=== PATIENT | male | born 1945 | race Caucasian/White ===

== ENCOUNTER → 2017-11-16 08:48 | Outpatient (CLI) | payer OTHER, SELFPAY ==
[2017-11-16 09:50] LABS: Add Manual Diff / Slide Review NO; Basophils Percent Auto 0.8 % (0-2); Eosinophils Percent Auto 6.1 % (2-4); Hematocrit 40.5 % (41-53); Hemoglobin 14.1 g/dL (13.5-17.5); Lymphocytes Percent Auto 27.1 % (25-40); Mean Corpuscular HGB Conc 34.7 % (30-36); Mean Corpuscular Volume 95.1 fL (80-100); Monocytes Percent Auto 12.3 % (3-14); Neutrophils Absolute Auto 2400 /uL (3000-5900); Neutrophils Percent Auto 53.7 % (50-75); Platelet Count 169 X10^3/uL (150-400); Red Blood Cell Count 4.26 X10^6/uL (4.5-5.9); Red Cell Distribution Width 13.3 % (11.6-14.8); White Blood Cell Count 4.5 X10^3/uL (4.5-11.0)
[2017-11-16 09:54] LABS: Alanine Aminotransferase 60 IU/L (21-72); Albumin Globulin Ratio 1.4 (1.0-2.8); Alkaline Phosphatase 61 U/L (38-126); Aspartate Aminotransferase 48 IU/L (17-59); BUN Creatinine Ratio 19.2 (6-22); Bilirubin Total 0.9 mg/dL (0.2-1.3); Blood Urea Nitrogen 25 mg/dL (9-20); Carbon Dioxide 28 mmol/L (22-32); Chloride 106 mmol/L (98-107); Cholesterol 110 mg/dL (140-199); Estimated Glomerular Filt Rate 54.4 mL/min (>60); Globulin 2.9 g/dL (1.7-4.1); Glucose 115 mg/dL (80-110); HDL Cholesterol 36 mg/dL (40-60); HEMOLYSIS < 15 (0-50); LDL Cholesterol Calculated 65 mg/dL (<100); Potassium 4.6 mmol/L (3.4-5.1); Sodium 144 mmol/L (137-145); Total Protein 6.9 g/dL (6.3-8.2); Triglycerides 46 mg/dL (35-150)
== END ==
PROVIDERS: PCP Family Medicine; Visit Provider Family Medicine
DX: N18.3 Chronic kidney disease, stage 3 (moderate) (principal); E78.00 Pure hypercholesterolemia, unspecified
CPT/HCPCS: 36415; 80053; 80061; 85025

== ENCOUNTER → 2017-11-29 13:26 | Outpatient (CLI) | payer OTHER, SELFPAY ==
--- NOTE | 2017-11-29 13:28 | DI.MRI.S_ITS ---
PROCEDURE: MR STROKE Pre- and post-contrast brain MRI, non-contrast brain MR angiogram, pre- and postcontrast neck MR angiogram INDICATIONS: SPEECH AND LANGUAGE DEFICITS TECHNIQUE: Brain: Noncontrast axial T1 spin echo, axial T2 fast spin echo, sagittal and axial FLAIR, coronal T2 fast spin echo, axial gradient echo, axial diffusion and ADC through the brain. After the administration of contrast, axial 3D VIBE of the cranial vasculature and brain. Brain MRA: Non-contrast 3-D time of flight MR angiogram, with multiple ofuwquq-ozpfxibcq-qtiacasxsb (MIP) reformats performed. Neck MRA: Axial and sagittal TruFISP through the neck. Coronal dynamic MR angiogram during administration of contrast in the arterial and venous phases, with 3-dimenstional aahkvtk-fuuwglmww-kxiublufoo (MIP) reformats constructed from subtraction images. COMPARISON: None. FINDINGS: Image quality: Excellent. BRAIN: CSF spaces: Ventricles are normal in size and shape. Basal cisterns are patent. No extra-axial fluid collections. Brain: No intracranial bleeds or mass effects. There is moderate diffuse cerebral volume loss. Mcdonald-white matter interface is normal. Diffusion weighted images show no acute ischemic insults. Brainstem appears normal. Normal intravascular flow voids are present. No abnormal intracranial enhancement. Skull and face: Calvarial marrow signal is normal. Orbits appear normal. Sinuses: Mild mucosal thickening within the bilateral maxillary, ethmoid, and sphenoid sinuses. Mastoids clear. BRAIN MR ANGIOGRAM: Anterior circulation: Intracranial internal carotid arteries are normal in size and enhancement. The flow within the paired anterior cerebral arteries is normal and symmetric. The flow within the middle cerebral arteries is normal and symmetric. The anterior communicating artery is seen. No stenoses, occlusions, or aneurysms. Posterior circulation: The right vertebral artery is dominant, and patent. The distal left vertebral artery is very small in caliber, and consequently suboptimally evaluated. The flow within the posterior cerebral arteries is normal and symmetric. No stenoses, occlusions, or aneurysms. NECK MR ANGIOGRAM: Carotids: Great vessels demonstrate a conventional anatomy as they arise from the aortic arch. The origins of the common carotid arteries appear patent. The calibers and courses of both common carotid arteries are normal. The bifurcation regions appear normal bilaterally. The internal carotid arteries demonstrate normal course and caliber. Posterior circulation: The origins of the vertebral arteries appear patent. Right vertebral artery is dominant and patent. Left vertebral artery is small in caliber, and is not well-seen distally. Miscellaneous: Subclavian arteries appear patent. Pre-contrast images through the neck show no soft tissue abnormalities. IMPRESSION: BRAIN MRI: 1. Moderate diffuse cerebral white loss. 2. Sinus disease. 3. No recent infarct. BRAIN MR ANGIOGRAM: 1. Small caliber distal left vertebral artery, which is suboptimally evaluated. 2. Otherwise negative cerebral MR angiography. NECK MR ANGIOGRAM: 1. No internal carotid artery stenosis bilaterally. 2. Patent right vertebral artery. Suboptimally visualized small caliber distal left vertebral artery which otherwise is within normal limits. Dictated by: Nigel Guerrero M.D. on 11/29/2017 at 14:43 Approved by: Nigel Guerrero M.D. on 11/29/2017 at 14:51
== END ==
PROVIDERS: PCP Family Medicine; Visit Provider Family Medicine
DX: R47.9 Unspecified speech disturbances (principal); J32.9 Chronic sinusitis, unspecified
CPT/HCPCS: 70553; A9579

== ENCOUNTER 2018-08-22 14:30 | Outpatient (RCR) | payer MEDICARE, BC, SELFPAY ==
--- NOTE | 2018-08-06 09:50 | PT.OIE ---
Current Diagnoses Pain in left shoulder (08/06/18) Past Medical History (Last Updated 03/31/18 @ 13:26 by Fred Erwin MD) Excessive daytime sleepiness (Chronic) Diastasis of rectus abdominis (Chronic) Speech and language deficits (Chronic) Hypercholesterolemia (Chronic Unknown) Actinic keratosis (Resolved 1999) Osteoarthritis (Chronic 2014) Depression (Chronic 2004) Benign familial tremor (Chronic 2014) Gout (Chronic 2009) Tinnitus of both ears (Chronic 2014) CKD (chronic kidney disease) (Chronic 2009) BPH (benign prostatic hyperplasia) (Chronic 1996) Colon polyps (Resolved 2006) Diverticular disease (Chronic 2006) Chickenpox (Resolved 1970) Past Surgical History (Last Reviewed 02/12/18 @ 13:35 by Fredrick Ely MD) Status post cholecystectomy (Chronic) Provider Visit Care Team Role Provider Type Fred Erwin MD Attending Provider Physician Primary Care Provider Specialty: Internal Medicine Address: [address] [place] [address] Email: Physical Therapy Initial Evaluation PT-OP-A Visit Information Start: 08/06/18 15:03 Freq: Status: Active Protocol: Document 08/06/18 09:50 [facility] (Rec: 08/06/18 15:09 [facility] [email or web address]) Out-Patient Physical Therapy Visit Information Visit Information Visit Type Initial Evaluation Visit Start Time 09:50 Visit Stop Time 10:35 Total Visit Minutes 45 Visit Number 1 Number of 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 Pt notes pain onset gradually over the past year, no mechanism of injury. He notes that pain is worst when attempting to raise his L hand overhead or overhead/away from his body in planes of abduction and flexion. He is R hand dominant and admits that his R shoulder can feel a little like how the Left side started occasionally. His L shoulder is his highest concern at this point. He has not had any imaging done. He admits to bilateral digits 1-3 tingling, and now since onset does admit to some 4th and 5th digit tingling on occasion . He actually describes digits 1-3 more so as someone used sandpaper on my fingers. He would like to be able to reach overhead while holding objects without shoulder discomfort. Future Testing and Treatments Planned radiograph if PT not successful Treatment Goals Patient/Caregiver Goals be able to lift overhead and more L shoulder pain-free Prior Functional Status Baseline Function- Other no issues with lifting or moving L shoulder Current Functional Impairments (Reported) Functional Limitations- Other unable to reach or lift light/ moderate objects overhead with LUE due to pain. Personal Factors Other Personal Factors That May Effect h/o depression, states his Therapy/Recovery numbness per neurology is bilateral carpal tunnel ( although EMG was negative), OA throughout his joints, h/o gout PT-OP-C Subjective Start: 08/06/18 15:03 Freq: Status: Active Protocol: Document 08/06/18 09:50 [facility] (Rec: 08/06/18 16:10 [facility] [email or web address]) Patient Questionnaires Quick Dash- Upper Extremity Quick Dash UE Score 27.27 Quick Dash UE Impairment 20 to 39% Impaired (Score 20- 39) OP-PT Pain Assessment Location L shoulder Intensity 1 Scale Used Numeric (1 - 10) Pain Aggravating Factors Lifting PT-OP-F Manual Assessment Start: 08/06/18 15:03 Freq: Status: Active Protocol: Document 08/06/18 09:50 [facility] (Rec: 08/06/18 16:10 [facility] [email or web address]) Manual Assessments Soft Tissue Assessment Soft Tissue Mobility Assessment tenderness to palpation supraspinatus, rotator cuff distal attachment on the L Joint Mobility Assessment Joint Mobility Assessment hypomobile posterior and inferior glide of the GH joint on the L PT-OP-H Neuro Start: 08/06/18 15:03 Freq: Status: Active Protocol: Document 08/06/18 09:50 [facility] (Rec: 08/06/18 16:10 [facility] [email or web address]) Deep Tendon Reflex & Clonus Assessment Deep Tendon Reflex Bilateral Brachioradialis Deep Tendon Reflex 2+ Normal Bilateral Tricep Deep Tendon Reflex 2+ Normal Bilateral Bicep Deep Tendon Reflex 2+ Normal PT-OP-J Posture/Palpation/Skin Start: 08/06/18 15:03 Freq: Status: Active Protocol: Document 08/06/18 09:50 [facility] (Rec: 08/06/18 16:10 [facility] [email or web address]) Posture Evaluation Comments Posture Comments mod. forward head and rounded shoulders, L shoulder elevated > R with UT activation on the L in sitting. PT-OP-K Range of Motion Start: 08/06/18 15:03 Freq: Status: Active Protocol: Document 08/06/18 09:50 [facility] (Rec: 08/06/18 16:10 [facility] [email or web address]) Shoulder Goniometric Range of Motion Shoulder Measured in Degrees Right Passive Shoulder ROM WFL Yes Testing Position Supine Flexion 170 Abduction 170 Left Passive Shoulder ROM WFL Yes Testing Position Supine Flexion 170 Abduction 170 Right Active Testing Position Sitting Flexion 170 Abduction 170 External Rotation at 90 degrees 95 Abduction Internal Rotation 80 Left Active Testing Position Sitting Flexion 160 Abduction 155 External Rotation at 90 degrees 86 Abduction Internal Rotation 80 PT-OP-L Special Tests Start: 08/06/18 15:03 Freq: Status: Active Protocol: Document 08/06/18 09:50 [facility] (Rec: 08/06/18 16:10 [facility] [email or web address]) Special Tests Cervical Spine Special Tests Foraminal Compression Test Results negative B Spurling's Test Test Results negative B Vertebral Artery Test Results negative B Shoulder Special Tests Anterior Draw Test Results negative B Empty Can Test Results negative B Lift-Off Rotator Cuff Test Results negative B Elevation Impingement Test Results positive L Neer Impingement Test Results positive L Biceps Load II Test Test Results negative B Apprehension Test Test Results negative B Preston Reji Impingement Test Results positive L Drop Arm Rotator Cuff Test Results negative B Load and Shift Test Results negative B Speed's Biceps Test Results negative B AC Joint Compression Test Results negative B Neural Special Tests- Upper Body Radial Nerve Tension Test Results positive B Ulnar Nerve Tension Test Results positive B Median Nerve Tension Test Results positive B Vascular Special Tests Adson Maneuver Test Results negative B PT-OP-M Strength Start: 08/06/18 15:03 Freq: Status: Active Protocol: Document 08/06/18 09:50 [facility] (Rec: 08/06/18 16:10 [facility] [email or web address]) Shoulder Strength Shoulder Manual Muscle Testing Right Flexion 5 Normal Abduction (C5) 4+ Good+ External Rotation 5 Normal Internal Rotation 5 Normal Left Flexion 4+ Good+ Abduction (C5) 4 Good External Rotation 4+ Good+ Internal Rotation 5 Normal Elbow/Forearm Strength Elbow and Forearm Manual Muscle Testing Right Flexion (C6) 5 Normal Extension (C7) 5 Normal Left Flexion (C6) 4+ Good+ Pronation 4+ Good+ PT-OP-Q Treatments Start: 08/06/18 15:03 Freq: Status: Active Protocol: Document 08/06/18 09:50 [facility] (Rec: 08/06/18 16:10 [facility] [email or web address]) Therapeutic Exercises Sitting Exercises median nerve glide Sitting Exercise Name median nerve glide- neutral head Side bilateral Reps/Minutes x5 each scapular retraction Side bilateral Reps/Minutes 10 Comments 5 sec hold; tactile cuing PT-OP-T Assessment and Plan Start: 08/06/18 15:03 Freq: Status: Active Protocol: Document 08/06/18 09:50 [facility] (Rec: 08/06/18 16:10 [facility] [email or web address]) Physical Therapy Assessment Rehab Potential Rehabilitation Potential Good Evaluation Complexity Number of Personal Factors/Comorbidities 3 or More Number of Body Systems Impaired 3 Clinical Presentation at Evaluation Stable Impairments Impairments Functional Activities Pain Posture ROM Soft Tissue Mobility Strength Goals UE weakness Impairment shoulder weakness L>R Boss Miner Goal (LTG) Bilateral shoulder strength to 5/5 grade of manual muscle testing in all planes without pain to demonstrate improvements with lifting light to moderate weighted objects (i.e. dishes) without increased L shoulder pain prior to d/c. LTG Duration 8 weeks L shoulder AROM Impairment limited L shoulder AROM vs gravity [facility] Goal (LTG) L shoulder flexion and abduction to 170 degress AROM without pain and negative painful arc on the L, to tolerate improved reaching ability overhead without discomfort. LTG Duration 8 weeks Quick DASH Impairment Quick DASH score of 27.27 Short Term Goal (STG) Quick DASH score to 20 or less to demonstrate improvements with UE functional activities. STG Duration 4 weeks Boss Miner Goal (LTG) Quick DASH score to 12 or less to demonstrate improvements with UE functional activities. LTG Duration 8 weeks Assessment Summary Assessment Pt presents with (+) signs and symptoms consistent with L shoulder impingement, limiting his ROM and painful arc and movements in flexion and abduction particularly. Special testing does not indicate any rotator cuff tear at this time. Pt does have impaired scapulohumeral rhythm along with elevated L scapula and inability to inhibit his upper trapezius with shoulder elevation on the L side. Pt also presents with impaired posture, and will need to assess thoracic spine when next seen by a phyiscal therapist for possible need of thoracic mobilizations and treatment. Pt is a good candidate for physical therapy to progress his bilateral shoulder strength, L shoulder AROM, restore normal scapulohumeral rhythm, and improve overall joint mobility to decrease pain with overhead reaching and lifting and return to prior level of function. Physical Therapy Plan Frequency and Duration Frequency of Treatment 2x/Week Duration of Treatment 8 weeks Plan of Care Start Date 08/06/18 Plan of Care End Date 10/01/18 Therapeutic Interventions Therapeutic Interventions Aquatic Therapy Home Exercise Program Joint Mobilizations Manual Therapy Neuromuscular Re-education Patient/Caregiver Education Self-Care/Home Management Soft Tissue Mobilization Taping Therapeutic Activities Therapeutic Exercises Modalities Cold Pack/Ice Massage Electric Stimulation Hot Packs Ultrasound Next Visit Focus/Plan Next Note Type Treatment Note Next Visit Plan add UT and levator stretch, pectoral doorway stretch, assess median nerve glides, radha's for abduction and flexion, scapular retraction with L1 band, SL abduction strengthening if tolerable without resistance; manual therapy: posterior and inferior L shoulder mobilizations grade III/IV, scapulohumeral mobilizations grade III/IV into upward rotation.
--- NOTE | 2018-08-08 16:14 | PT.OTN ---
Current Diagnoses Pain in left shoulder (08/08/18) Physical Therapy Treatment Note PT-OP-A Visit Information Start: 08/06/18 15:03 Freq: Status: Active Protocol: Document 08/08/18 15:55 [facility] (Rec: 08/08/18 16:14 [facility] [email or web address]) Out-Patient Physical Therapy Visit Information Visit Information Visit Type Treatment Note Visit Start Time 14:30 Visit Stop Time 15:15 Total Visit Minutes 45 Visit Number 2 Number of CORPORATE DEVELOPMENT ANALYST Visits 1 PT-OP-B Current Condition Start: 08/06/18 15:03 Freq: Status: Active Protocol: Document 08/06/18 09:50 [facility] (Rec: 08/06/18 15:30 [facility] [email or web address]) Current Condition History of Current Condition Onset Date 1 yr Current Complaints L shoulder limited ROM and pain with overhead movements History of Current Condition Pt is a 73 y/o male presenting to physical therapy with a c/ o L shoulder pain and limited ROM. Pt notes pain onset gradually over the past year, no mechanism of injury. He notes that pain is worst when attempting to raise his L hand overhead or overhead/away from his body in planes of abduction and flexion. He is R hand dominant and admits that his R shoulder can feel a little like how the Left side started occasionally. His L shoulder is his highest concern at this point. He has not had any imaging done. He admits to bilateral digits 1-3 tingling, and now since onset does admit to some 4th and 5th digit tingling on occasion . He actually describes digits 1-3 more so as someone used sandpaper on my fingers. He would like to be able to reach overhead while holding objects without shoulder discomfort. Future Testing and Treatments Planned radiograph if PT not successful Treatment Goals Patient/Caregiver Goals be able to lift overhead and more L shoulder pain-free Prior Functional Status Baseline Function- Other no issues with lifting or moving L shoulder Current Functional Impairments (Reported) Functional Limitations- Other unable to reach or lift light/ moderate objects overhead with LUE due to pain. Personal Factors Other Personal Factors That May Effect h/o depression, states his Therapy/Recovery numbness per neurology is bilateral carpal tunnel ( although EMG was negative), OA throughout his joints, h/o gout PT-OP-C Subjective Start: 08/06/18 15:03 Freq: Status: Active Protocol: Document 08/08/18 15:55 [facility] (Rec: 08/08/18 16:14 [facility] [email or web address]) OP-PT Subjective Patient Comments Patient Comments Pt reports shoulder only hurts with OH flexion and FLEX and reaching across body. Did scapular squeezes and noted that he had muscle soreness but no increase in symptoms. PT-OP-F Manual Assessment Start: 08/06/18 15:03 Freq: Status: Active Protocol: Document 08/06/18 09:50 [facility] (Rec: 08/06/18 16:10 [facility] [email or web address]) Manual Assessments Soft Tissue Assessment Soft Tissue Mobility Assessment tenderness to palpation supraspinatus, rotator cuff distal attachment on the L Joint Mobility Assessment Joint Mobility Assessment hypomobile posterior and inferior glide of the GH joint on the L PT-OP-H Neuro Start: 08/06/18 15:03 Freq: Status: Active Protocol: Document 08/06/18 09:50 [facility] (Rec: 08/06/18 16:10 [facility] [email or web address]) Deep Tendon Reflex & Clonus Assessment Deep Tendon Reflex Bilateral Brachioradialis Deep Tendon Reflex 2+ Normal Bilateral Tricep Deep Tendon Reflex 2+ Normal Bilateral Bicep Deep Tendon Reflex 2+ Normal PT-OP-J Posture/Palpation/Skin Start: 08/06/18 15:03 Freq: Status: Active Protocol: Document 08/06/18 09:50 [facility] (Rec: 08/06/18 16:10 [facility] [email or web address]) Posture Evaluation Comments Posture Comments mod. forward head and rounded shoulders, L shoulder elevated > R with UT activation on the L in sitting. PT-OP-K Range of Motion Start: 08/06/18 15:03 Freq: Status: Active Protocol: Document 08/06/18 09:50 [facility] (Rec: 08/06/18 16:10 [facility] [email or web address]) Shoulder Goniometric Range of Motion Shoulder Measured in Degrees Right Passive Shoulder ROM WFL Yes Testing Position Supine Flexion 170 Abduction 170 Left Passive Shoulder ROM WFL Yes Testing Position Supine Flexion 170 Abduction 170 Right Active Testing Position Sitting Flexion 170 Abduction 170 External Rotation at 90 degrees 95 Abduction Internal Rotation 80 Left Active Testing Position Sitting Flexion 160 Abduction 155 External Rotation at 90 degrees 86 Abduction Internal Rotation 80 PT-OP-L Special Tests Start: 08/06/18 15:03 Freq: Status: Active Protocol: Document 08/06/18 09:50 [facility] (Rec: 08/06/18 16:10 [facility] [email or web address]) Special Tests Cervical Spine Special Tests Foraminal Compression Test Results negative B Spurling's Test Test Results negative B Vertebral Artery Test Results negative B Shoulder Special Tests Anterior Draw Test Results negative B Empty Can Test Results negative B Lift-Off Rotator Cuff Test Results negative B Elevation Impingement Test Results positive L Neer Impingement Test Results positive L Biceps Load II Test Test Results negative B Apprehension Test Test Results negative B Preston Reji Impingement Test Results positive L Drop Arm Rotator Cuff Test Results negative B Load and Shift Test Results negative B Speed's Biceps Test Results negative B AC Joint Compression Test Results negative B Neural Special Tests- Upper Body Radial Nerve Tension Test Results positive B Ulnar Nerve Tension Test Results positive B Median Nerve Tension Test Results positive B Vascular Special Tests Adson Maneuver Test Results negative B PT-OP-M Strength Start: 08/06/18 15:03 Freq: Status: Active Protocol: Document 08/06/18 09:50 [facility] (Rec: 08/06/18 16:10 [facility] [email or web address]) Shoulder Strength Shoulder Manual Muscle Testing Right Flexion 5 Normal Abduction (C5) 4+ Good+ External Rotation 5 Normal Internal Rotation 5 Normal Left Flexion 4+ Good+ Abduction (C5) 4 Good External Rotation 4+ Good+ Internal Rotation 5 Normal Elbow/Forearm Strength Elbow and Forearm Manual Muscle Testing Right Flexion (C6) 5 Normal Extension (C7) 5 Normal Left Flexion (C6) 4+ Good+ Pronation 4+ Good+ PT-OP-Q Treatments Start: 08/06/18 15:03 Freq: Status: Active Protocol: Document 08/08/18 15:55 [facility] (Rec: 08/08/18 16:14 SA [email or web address]) Cardio Equipment Upper Body Ergometer (UBE) Duration (Minutes) 6 RPM 60 Other 3 forward/3 backward Therapeutic Exercises Supine Exercises serratus punch Resistance 1# Reps/Minutes 20x Wand Flexion Side bilateral Resistance 2# Reps/Minutes 20x Sidelying Exercises IR/ER Side left Equipment Used 1# Reps/Minutes 20x Sitting Exercises median nerve glide Sitting Exercise Name median nerve glide- neutral head Side bilateral Reps/Minutes x5 each Standing Exercises Postural wall stretch Side bilateral Reps/Minutes 30 x 3 Comments tactile cues for form Shoulder EXT Side left Resistance # 2 TB Reps/Minutes 20x shoulder Flexion Side left Resistance #2 TB Reps/Minutes 20x Comments sx free scapular rows Side bilateral Resistance #2 TB Reps/Minutes 20x Manual Therapy Treatment Soft Tissue Mobilization UT/pecs Body Location Left Mobilization Type Myofascial Release Rolling Strumming Intensity/Depth Moderate Body Position Supine Comments UT/pecs with noted tightness, rounded shoulder posture. Joint Mobilizations Scapularhumeral mobs Grade III Body Position Supine Comments upward rotation PT-OP-T Assessment and Plan Start: 08/06/18 15:03 Freq: Status: Active Protocol: Document 08/08/18 15:55 [facility] (Rec: 08/08/18 16:14 [facility] [email or web address]) Physical Therapy Assessment Assessment Summary Assessment Provided Pt with wall stretch and scapular rows for HEP and TB and hand out for work station set up. Education for impingement positions movements to avoid. Pt tolerated strengthening exercises well, no sx. Physical Therapy Plan Next Visit Focus/Plan Next Note Type Treatment Note Next Visit Plan add UT and levator stretch, pectoral doorway stretch, assess median nerve glides, radha's for abduction and flexion, scapular retraction with L1 band, SL abduction strengthening if tolerable without resistance; manual therapy: posterior and inferior L shoulder mobilizations grade III/IV, scapulohumeral mobilizations grade III/IV into upward rotation.
--- NOTE | 2018-08-13 16:33 | PT.OTN ---
Current Diagnoses Pain in left shoulder (08/13/18) Physical Therapy Treatment Note PT-OP-A Visit Information Start: 08/06/18 15:03 Freq: Status: Active Protocol: Document 08/13/18 15:19 SAK (Rec: 08/13/18 16:31 SAK [id number]) Out-Patient Physical Therapy Visit Information Visit Information Visit Type Treatment Note Visit Start Time 15:15 Visit Stop Time 16:10 Total Visit Minutes 55 Visit Number 3 Number of ELECTRICAL TECHNICIAN INSTRUCTOR Visits 0 Evaluation Information Evaluation Date 08/06/18 PT-OP-B Current Condition Start: 08/06/18 15:03 Freq: Status: Active Protocol: Document 08/06/18 09:50 RCC (Rec: 08/06/18 15:30 RCC [email or web address]) Current Condition History of Current Condition Onset Date 1 yr Current Complaints L shoulder limited ROM and pain with overhead movements History of Current Condition Pt is a 73 y/o male presenting to physical therapy with a c/ o L shoulder pain and limited ROM. Pt notes pain onset gradually over the past year, no mechanism of injury. He notes that pain is worst when attempting to raise his L hand overhead or overhead/away from his body in planes of abduction and flexion. He is R hand dominant and admits that his R shoulder can feel a little like how the Left side started occasionally. His L shoulder is his highest concern at this point. He has not had any imaging done. He admits to bilateral digits 1-3 tingling, and now since onset does admit to some 4th and 5th digit tingling on occasion . He actually describes digits 1-3 more so as someone used sandpaper on my fingers. He would like to be able to reach overhead while holding objects without shoulder discomfort. Future Testing and Treatments Planned radiograph if PT not successful Treatment Goals Patient/Caregiver Goals be able to lift overhead and more L shoulder pain-free Prior Functional Status Baseline Function- Other no issues with lifting or moving L shoulder Current Functional Impairments (Reported) Functional Limitations- Other unable to reach or lift light/ moderate objects overhead with LUE due to pain. 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 PT-OP-F Manual Assessment Start: 08/06/18 15:03 Freq: Status: Active Protocol: Document 08/06/18 09:50 RCC (Rec: 08/06/18 16:10 RCC [email or web address]) Manual Assessments Soft Tissue Assessment Soft Tissue Mobility Assessment tenderness to palpation supraspinatus, rotator cuff distal attachment on the L Joint Mobility Assessment Joint Mobility Assessment hypomobile posterior and inferior glide of the GH joint on the L PT-OP-H Neuro Start: 08/06/18 15:03 Freq: Status: Active Protocol: Document 08/06/18 09:50 RCC (Rec: 08/06/18 16:10 RCC [email or web address]) Deep Tendon Reflex & Clonus Assessment Deep Tendon Reflex Bilateral Brachioradialis Deep Tendon Reflex 2+ Normal Bilateral Tricep Deep Tendon Reflex 2+ Normal Bilateral Bicep Deep Tendon Reflex 2+ Normal PT-OP-J Posture/Palpation/Skin Start: 08/06/18 15:03 Freq: Status: Active Protocol: Document 08/06/18 09:50 RCC (Rec: 08/06/18 16:10 RCC [email or web address]) Posture Evaluation Comments Posture Comments mod. forward head and rounded shoulders, L shoulder elevated > R with UT activation on the L in sitting. PT-OP-K Range of Motion Start: 08/06/18 15:03 Freq: Status: Active Protocol: Document 08/06/18 09:50 RCC (Rec: 08/06/18 16:10 RCC [email or web address]) Shoulder Goniometric Range of Motion Shoulder Measured in Degrees Right Passive Shoulder ROM WFL Yes Testing Position Supine Flexion 170 Abduction 170 Left Passive Shoulder ROM WFL Yes Testing Position Supine Flexion 170 Abduction 170 Right Active Testing Position Sitting Flexion 170 Abduction 170 External Rotation at 90 degrees 95 Abduction Internal Rotation 80 Left Active Testing Position Sitting Flexion 160 Abduction 155 External Rotation at 90 degrees 86 Abduction Internal Rotation 80 PT-OP-L Special Tests Start: 08/06/18 15:03 Freq: Status: Active Protocol: Document 08/06/18 09:50 RCC (Rec: 08/06/18 16:10 RCC [email or web address]) Special Tests Cervical Spine Special Tests Foraminal Compression Test Results negative B Spurling's Test Test Results negative B Vertebral Artery Test Results negative B Shoulder Special Tests Anterior Draw Test Results negative B Empty Can Test Results negative B Lift-Off Rotator Cuff Test Results negative B Elevation Impingement Test Results positive L Neer Impingement Test Results positive L Biceps Load II Test Test Results negative B Apprehension Test Test Results negative B Preston Reji Impingement Test Results positive L Drop Arm Rotator Cuff Test Results negative B Load and Shift Test Results negative B Speed's Biceps Test Results negative B AC Joint Compression Test Results negative B Neural Special Tests- Upper Body Radial Nerve Tension Test Results positive B Ulnar Nerve Tension Test Results positive B Median Nerve Tension Test Results positive B Vascular Special Tests Adson Maneuver Test Results negative B PT-OP-M Strength Start: 08/06/18 15:03 Freq: Status: Active Protocol: Document 08/06/18 09:50 [facility] (Rec: 08/06/18 16:10 RCC [email or web address]) Shoulder Strength Shoulder Manual Muscle Testing Right Flexion 5 Normal Abduction (C5) 4+ Good+ External Rotation 5 Normal Internal Rotation 5 Normal Left Flexion 4+ Good+ Abduction (C5) 4 Good External Rotation 4+ Good+ Internal Rotation 5 Normal Elbow/Forearm Strength Elbow and Forearm Manual Muscle Testing Right Flexion (C6) 5 Normal Extension (C7) 5 Normal Left Flexion (C6) 4+ Good+ Pronation 4+ Good+ PT-OP-Q Treatments Start: 08/06/18 15:03 Freq: Status: Active Protocol: Document 08/13/18 15:19 [facility] (Rec: 08/13/18 16:10 [facility] [id number]) Therapeutic Exercises Supine Exercises pec stretch Equipment Used 1/2 foam roll Reps/Minutes 2x 30 serratus punch Resistance 1 Equipment Used 1/2 foam roll Reps/Minutes 20x Wand Flexion Side bilateral Equipment Used 1/2 foam roll Reps/Minutes 20x Sidelying Exercises IR/ER Side left Equipment Used 1# Reps/Minutes 20x Sitting Exercises median nerve glide Sitting Exercise Name median nerve glide- neutral head Side bilateral Reps/Minutes x5 each Standing Exercises shoulder ER Resistance L1 TB Reps/Minutes 15x Postural wall stretch Side bilateral Reps/Minutes 30 x 3 Comments tactile cues for form Shoulder EXT Side bilateral Resistance # 2 TB Reps/Minutes 20x shoulder Flexion Side bilateral Resistance #2 TB Reps/Minutes 20x Comments sx free Manual Therapy Treatment Soft Tissue Mobilization UT/pecs Body Location Left Mobilization Type Myofascial Release Rolling Strumming Sustained Pressure Intensity/Depth Moderate Body Position Supine Comments UT/pecs with noted tightness, rounded shoulder posture. Joint Mobilizations GH Direction posterior, inf Grade III PT-OP-R Modalities Start: 08/06/18 15:03 Freq: Status: Active Protocol: Document 08/13/18 15:19 [facility] (Rec: 08/13/18 16:31 [facility] [id number]) Hot Pack/Cold Pack Treatment Cold Pack Location left shoulder Patient Position Hooklying Treatment Duration (minutes) 10 Patient Tolerance Good PT-OP-T Assessment and Plan Start: 08/06/18 15:03 Freq: Status: Active Protocol: Document 08/13/18 15:19 [facility] (Rec: 08/13/18 16:31 [facility] [id number]) Physical Therapy Assessment Goals UE weakness Impairment shoulder weakness L>R Stable Cleaner Goal (LTG) Bilateral shoulder strength to 5/5 grade of manual muscle testing in all planes without pain to demonstrate improvements with lifting light to moderate weighted objects (i.e. dishes) without increased L shoulder pain prior to d/c. LTG Duration 8 weeks L shoulder AROM Impairment limited L shoulder AROM vs gravity Jail Goal (LTG) L shoulder flexion and abduction to 170 degress AROM without pain and negative painful arc on the L, to tolerate improved reaching ability overhead without discomfort. LTG Duration 8 weeks Quick DASH Impairment Quick DASH score of 27.27 Short Term Goal (STG) Quick DASH score to 20 or less to demonstrate improvements with UE functional activities. STG Duration 4 weeks Stable Cleaner Goal (LTG) Quick DASH score to 12 or less to demonstrate improvements with UE functional activities. LTG Duration 8 weeks Assessment Summary Assessment Postural cues provided verbally and manually throughout session for improved alignment and shoulder mechanics. Pain only with horizontal adduction supine beyond 90 deg but pain decreased with posterior glide at GH joint. Tolerated new ex well. Physical Therapy Plan Frequency and Duration Frequency of Treatment 2x/Week Duration of Treatment 8 weeks Plan of Care Start Date 08/06/18 Plan of Care End Date 10/01/18 Therapeutic Interventions Therapeutic Interventions Aquatic Therapy Home Exercise Program Joint Mobilizations Manual Therapy Neuromuscular Re-education Patient/Caregiver Education Self-Care/Home Management Soft Tissue Mobilization Taping Therapeutic Activities Therapeutic Exercises Modalities Cold Pack/Ice Massage Electric Stimulation Hot Packs Ultrasound Next Visit Focus/Plan Next Note Type Treatment Note Next Visit Plan add UT and levator stretch, pectoral doorway stretch, assess median nerve glides, radha's for abduction and flexion, scapular retraction with L1 band, SL abduction strengthening if tolerable without resistance; manual therapy: posterior and inferior L shoulder mobilizations grade III/IV, scapulohumeral mobilizations grade III/IV into upward rotation.
--- NOTE | 2018-08-15 17:16 | PT.OTN ---
Current Diagnoses Pain in left shoulder (08/15/18) Physical Therapy Treatment Note PT-OP-A Visit Information Start: 08/06/18 15:03 Freq: Status: Active Protocol: Document 08/15/18 16:00 GGD (Rec: 08/15/18 17:03 GGD [email or web address]) Out-Patient Physical Therapy Visit Information Visit Information Visit Type Treatment Note Visit Start Time 16:00 Visit Stop Time 16:55 Total Visit Minutes 55 Visit Number 4 Number of BOAT FUELER Visits 1 Evaluation Information Evaluation Date 08/06/18 PT-OP-B Current Condition Start: 08/06/18 15:03 Freq: Status: Active Protocol: Document 08/06/18 09:50 RCC (Rec: 08/06/18 15:30 RCC [email or web address]) Current Condition History of Current Condition Onset Date 1 yr Current Complaints L shoulder limited ROM and pain with overhead movements History of Current Condition Pt is a 73 y/o male presenting to physical therapy with a c/ o L shoulder pain and limited ROM. Pt notes pain onset gradually over the past year, no mechanism of injury. He notes that pain is worst when attempting to raise his L hand overhead or overhead/away from his body in planes of abduction and flexion. He is R hand dominant and admits that his R shoulder can feel a little like how the Left side started occasionally. His L shoulder is his highest concern at this point. He has not had any imaging done. He admits to bilateral digits 1-3 tingling, and now since onset does admit to some 4th and 5th digit tingling on occasion . He actually describes digits 1-3 more so as someone used sandpaper on my fingers. He would like to be able to reach overhead while holding objects without shoulder discomfort. Future Testing and Treatments Planned radiograph if PT not successful Treatment Goals Patient/Caregiver Goals be able to lift overhead and more L shoulder pain-free Prior Functional Status Baseline Function- Other no issues with lifting or moving L shoulder Current Functional Impairments (Reported) Functional Limitations- Other unable to reach or lift light/ moderate objects overhead with LUE due to pain. 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 PT-OP-F Manual Assessment Start: 08/06/18 15:03 Freq: Status: Active Protocol: Document 08/06/18 09:50 RCC (Rec: 08/06/18 16:10 RCC [email or web address]) Manual Assessments Soft Tissue Assessment Soft Tissue Mobility Assessment tenderness to palpation supraspinatus, rotator cuff distal attachment on the L Joint Mobility Assessment Joint Mobility Assessment hypomobile posterior and inferior glide of the GH joint on the L PT-OP-H Neuro Start: 08/06/18 15:03 Freq: Status: Active Protocol: Document 08/06/18 09:50 RCC (Rec: 08/06/18 16:10 RCC [email or web address]) Deep Tendon Reflex & Clonus Assessment Deep Tendon Reflex Bilateral Brachioradialis Deep Tendon Reflex 2+ Normal Bilateral Tricep Deep Tendon Reflex 2+ Normal Bilateral Bicep Deep Tendon Reflex 2+ Normal PT-OP-J Posture/Palpation/Skin Start: 08/06/18 15:03 Freq: Status: Active Protocol: Document 08/06/18 09:50 RCC (Rec: 08/06/18 16:10 RCC [email or web address]) Posture Evaluation Comments Posture Comments mod. forward head and rounded shoulders, L shoulder elevated > R with UT activation on the L in sitting. PT-OP-K Range of Motion Start: 08/06/18 15:03 Freq: Status: Active Protocol: Document 08/06/18 09:50 RCC (Rec: 08/06/18 16:10 RCC [email or web address]) Shoulder Goniometric Range of Motion Shoulder Measured in Degrees Right Passive Shoulder ROM WFL Yes Testing Position Supine Flexion 170 Abduction 170 Left Passive Shoulder ROM WFL Yes Testing Position Supine Flexion 170 Abduction 170 Right Active Testing Position Sitting Flexion 170 Abduction 170 External Rotation at 90 degrees 95 Abduction Internal Rotation 80 Left Active Testing Position Sitting Flexion 160 Abduction 155 External Rotation at 90 degrees 86 Abduction Internal Rotation 80 PT-OP-L Special Tests Start: 08/06/18 15:03 Freq: Status: Active Protocol: Document 08/06/18 09:50 RCC (Rec: 03/06/19 16:10 RCC [email or web address]) Special Tests Cervical Spine Special Tests Foraminal Compression Test Results negative B Spurling's Test Test Results negative B Vertebral Artery Test Results negative B Shoulder Special Tests Anterior Draw Test Results negative B Empty Can Test Results negative B Lift-Off Rotator Cuff Test Results negative B Elevation Impingement Test Results positive L Neer Impingement Test Results positive L Biceps Load II Test Test Results negative B Apprehension Test Test Results negative B Preston Reji Impingement Test Results positive L Drop Arm Rotator Cuff Test Results negative B Load and Shift Test Results negative B Speed's Biceps Test Results negative B AC Joint Compression Test Results negative B Neural Special Tests- Upper Body Radial Nerve Tension Test Results positive B Ulnar Nerve Tension Test Results positive B Median Nerve Tension Test Results positive B Vascular Special Tests Adson Maneuver Test Results negative B PT-OP-M Strength Start: 08/06/18 15:03 Freq: Status: Active Protocol: Document 08/06/18 09:50 RCC (Rec: 08/06/18 16:10 RCC [email or web address]) Shoulder Strength Shoulder Manual Muscle Testing Right Flexion 5 Normal Abduction (C5) 4+ Good+ External Rotation 5 Normal Internal Rotation 5 Normal Left Flexion 4+ Good+ Abduction (C5) 4 Good External Rotation 4+ Good+ Internal Rotation 5 Normal Elbow/Forearm Strength Elbow and Forearm Manual Muscle Testing Right Flexion (C6) 5 Normal Extension (C7) 5 Normal Left Flexion (C6) 4+ Good+ Pronation 4+ Good+ PT-OP-Q Treatments Start: 08/06/18 15:03 Freq: Status: Active Protocol: Document 08/15/18 16:00 GGD (Rec: 08/15/18 17:03 GGD [email or web address]) Therapeutic Exercises Supine Exercises pec stretch Equipment Used 1/2 foam roll Reps/Minutes 2x 30 serratus punch Resistance 1 Equipment Used 1/2 foam roll Reps/Minutes 20x Wand Flexion Side bilateral Equipment Used 1/2 foam roll Reps/Minutes 20x Sidelying Exercises IR/ER Side left Equipment Used 1# Reps/Minutes 20x Sitting Exercises pullys Sitting Exercise Name Pulleys flexion and abduction Reps/Minutes 4 Standing Exercises shoulder ER Resistance L2 TB Reps/Minutes 15x Postural wall stretch Side bilateral Reps/Minutes 30 x 3 Comments tactile cues for form Shoulder EXT Side bilateral Resistance # 2 TB Reps/Minutes 20x scapular rows Side bilateral Resistance #2 TB Reps/Minutes 20x Manual Therapy Treatment Soft Tissue Mobilization UT/pecs Body Location Left Mobilization Type Myofascial Release Rolling Strumming Sustained Pressure Intensity/Depth Moderate Body Position Supine Comments UT/pecs with noted tightness, rounded shoulder posture. Joint Mobilizations GH Direction posterior, inf Grade III PT-OP-R Modalities Start: 08/06/18 15:03 Freq: Status: Active Protocol: Document 08/15/18 16:00 GGD (Rec: 08/15/18 17:03 GGD [email or web address]) Hot Pack/Cold Pack Treatment Cold Pack Location left shoulder Patient Position Hooklying Treatment Duration (minutes) 10 Patient Tolerance Good PT-OP-T Assessment and Plan Start: 08/06/18 15:03 Freq: Status: Active Protocol: Document 08/15/18 16:00 GGD (Rec: 08/15/18 17:03 GGD [email or web address]) Physical Therapy Assessment Assessment Summary Assessment Pt need min cues for HEP. He improving with shoulder ROM. He did need cues for posture. Physical Therapy Plan Frequency and Duration Frequency of Treatment 2x/Week Duration of Treatment 8 weeks Plan of Care Start Date 08/06/18 Plan of Care End Date 10/01/18 Therapeutic Interventions Therapeutic Interventions Aquatic Therapy Home Exercise Program Joint Mobilizations Manual Therapy Neuromuscular Re-education Patient/Caregiver Education Self-Care/Home Management Soft Tissue Mobilization Taping Therapeutic Activities Therapeutic Exercises Modalities Cold Pack/Ice Massage Electric Stimulation Hot Packs Ultrasound Next Visit Focus/Plan Next Note Type Treatment Note Next Visit Plan continue x 1 visit and D/C home
--- NOTE | 2018-08-22 17:52 | PT.OTN ---
Current Diagnoses Pain in left shoulder (08/22/18) Physical Therapy Treatment Note PT-OP-A Visit Information Start: 08/06/18 15:03 Freq: Status: Active Protocol: Document 08/22/18 14:30 HH (Rec: 08/22/18 17:52 HH [email or web address]) Out-Patient Physical Therapy Visit Information Visit Information Visit Type Treatment Note Visit Start Time 14:30 Visit Stop Time 15:15 Total Visit Minutes 45 Visit Number 5 Number of [employer] MANAGER Visits 0 PT-OP-B Current Condition Start: 08/06/18 15:03 Freq: Status: Active Protocol: Document 08/06/18 09:50 RCC (Rec: 08/06/18 15:30 RCC [email or web address]) Current Condition History of Current Condition Onset Date 1 yr Current Complaints L shoulder limited ROM and pain with overhead movements History of Current Condition Pt is a 73 y/o male presenting to physical therapy with a c/ o L shoulder pain and limited ROM. Pt notes pain onset gradually over the past year, no mechanism of injury. He notes that pain is worst when attempting to raise his L hand overhead or overhead/away from his body in planes of abduction and flexion. He is R hand dominant and admits that his R shoulder can feel a little like how the Left side started occasionally. His L shoulder is his highest concern at this point. He has not had any imaging done. He admits to bilateral digits 1-3 tingling, and now since onset does admit to some 4th and 5th digit tingling on occasion . He actually describes digits 1-3 more so as someone used sandpaper on my fingers. He would like to be able to reach overhead while holding objects without shoulder discomfort. Future Testing and Treatments Planned radiograph if PT not successful Treatment Goals Patient/Caregiver Goals be able to lift overhead and more L shoulder pain-free Prior Functional Status Baseline Function- Other no issues with lifting or moving L shoulder Current Functional Impairments (Reported) Functional Limitations- Other unable to reach or lift light/ moderate objects overhead with LUE due to pain. 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 PT-OP-F Manual Assessment Start: 08/06/18 15:03 Freq: Status: Active Protocol: Document 08/06/18 09:50 RCC (Rec: 08/06/18 16:10 RCC [email or web address]) Manual Assessments Soft Tissue Assessment Soft Tissue Mobility Assessment tenderness to palpation supraspinatus, rotator cuff distal attachment on the L Joint Mobility Assessment Joint Mobility Assessment hypomobile posterior and inferior glide of the GH joint on the L PT-OP-H Neuro Start: 08/06/18 15:03 Freq: Status: Active Protocol: Document 08/06/18 09:50 RCC (Rec: 08/06/18 16:10 RCC [email or web address]) Deep Tendon Reflex & Clonus Assessment Deep Tendon Reflex Bilateral Brachioradialis Deep Tendon Reflex 2+ Normal Bilateral Tricep Deep Tendon Reflex 2+ Normal Bilateral Bicep Deep Tendon Reflex 2+ Normal PT-OP-J Posture/Palpation/Skin Start: 08/06/18 15:03 Freq: Status: Active Protocol: Document 08/06/18 09:50 RCC (Rec: 08/06/18 16:10 RCC [email or web address]) Posture Evaluation Comments Posture Comments mod. forward head and rounded shoulders, L shoulder elevated > R with UT activation on the L in sitting. PT-OP-K Range of Motion Start: 08/06/18 15:03 Freq: Status: Active Protocol: Document 08/06/18 09:50 RCC (Rec: 08/06/18 16:10 RCC [email or web address]) Shoulder Goniometric Range of Motion Shoulder Measured in Degrees Right Passive Shoulder ROM WFL Yes Testing Position Supine Flexion 170 Abduction 170 Left Passive Shoulder ROM WFL Yes Testing Position Supine Flexion 170 Abduction 170 Right Active Testing Position Sitting Flexion 170 Abduction 170 External Rotation at 90 degrees 95 Abduction Internal Rotation 80 Left Active Testing Position Sitting Flexion 160 Abduction 155 External Rotation at 90 degrees 86 Abduction Internal Rotation 80 PT-OP-L Special Tests Start: 08/06/18 15:03 Freq: Status: Active Protocol: Document 08/06/18 09:50 RCC (Rec: 08/06/18 16:10 RCC [email or web address]) Special Tests Cervical Spine Special Tests Foraminal Compression Test Results negative B Spurling's Test Test Results negative B Vertebral Artery Test Results negative B Shoulder Special Tests Anterior Draw Test Results negative B Empty Can Test Results negative B Lift-Off Rotator Cuff Test Results negative B Elevation Impingement Test Results positive L Neer Impingement Test Results positive L Biceps Load II Test Test Results negative B Apprehension Test Test Results negative B Preston Reji Impingement Test Results positive L Drop Arm Rotator Cuff Test Results negative B Load and Shift Test Results negative B Speed's Biceps Test Results negative B AC Joint Compression Test Results negative B Neural Special Tests- Upper Body Radial Nerve Tension Test Results positive B Ulnar Nerve Tension Test Results positive B Median Nerve Tension Test Results positive B Vascular Special Tests Adson Maneuver Test Results negative B PT-OP-M Strength Start: 08/06/18 15:03 Freq: Status: Active Protocol: Document 08/06/18 09:50 RCC (Rec: 08/06/18 16:10 RCC [email or web address]) Shoulder Strength Shoulder Manual Muscle Testing Right Flexion 5 Normal Abduction (C5) 4+ Good+ External Rotation 5 Normal Internal Rotation 5 Normal Left Flexion 4+ Good+ Abduction (C5) 4 Good External Rotation 4+ Good+ Internal Rotation 5 Normal Elbow/Forearm Strength Elbow and Forearm Manual Muscle Testing Right Flexion (C6) 5 Normal Extension (C7) 5 Normal Left Flexion (C6) 4+ Good+ Pronation 4+ Good+ PT-OP-Q Treatments Start: 08/06/18 15:03 Freq: Status: Active Protocol: Document 08/22/18 14:30 HH (Rec: 08/22/18 17:52 HH [email or web address]) Therapeutic Exercises Standing Exercises scap retraction+ GH extension Equipment Used PVC Reps/Minutes 20 x 2 scap elevation depression Equipment Used PVC pipe Reps/Minutes 20 x2 Around the [place] with PVC Side bilateral Equipment Used PVC Reps/Minutes 10 x 4 push press with PVC Standing Exercise Name shoulder press + overear press Side bilateral Equipment Used PVC Comments cues for end range push press scap roll Reps/Minutes 20 x 2 Comments forward and backward Manual Therapy Treatment Joint Mobilizations AC joint gapping Grade III Body Position Supine GH Direction posterior, inf Grade III Scapularhumeral mobs Grade III Body Position Supine Comments upward rotation PT-OP-R Modalities Start: 08/06/18 15:03 Freq: Status: Active Protocol: Document 08/15/18 16:00 GGD (Rec: 08/15/18 17:03 GGD [email or web address]) Hot Pack/Cold Pack Treatment Cold Pack Location left shoulder Patient Position Hooklying Treatment Duration (minutes) 10 Patient Tolerance Good PT-OP-T Assessment and Plan Start: 08/06/18 15:03 Freq: Status: Active Protocol: Document 08/22/18 14:30 HH (Rec: 08/22/18 17:52 HH [email or web address]) Physical Therapy Assessment Assessment Summary Assessment Pt c/o pain with reaching across midline with 2lb DB at first. During assessment, pain reproduced with L clavicle compression. Tx focused on AC joint gapping, scap upward rotation, and scap overall mobility. Pt was symptom free with reaching across midline with 5 lbs DB. Physical Therapy Plan Next Visit Focus/Plan Next Note Type Treatment Note Next Visit Plan AC joint mob scap joint mob scap mobility training postural education
--- NOTE | 2018-11-15 13:10 | PT.OPDS ---
Current Diagnoses Pain in left shoulder (08/22/18) Provider Visit Care Team Role Provider Type Fred Erwin MD Attending Provider Physician Primary Care Provider Specialty: Internal Medicine Address: [address] [place] [address], [facility] Email: Visit Number Visit Number 5 Discharge Summary PT-OP-B Current Condition Start: 08/06/18 15:03 Freq: Status: Active Protocol: Document 08/06/18 09:50 RCC (Rec: 08/06/18 15:30 RCC [email or web address]) Current Condition History of Current Condition Onset Date 1 yr Current Complaints L shoulder limited ROM and pain with overhead movements History of Current Condition Pt is a 73 y/o male presenting to physical therapy with a c/ o L shoulder pain and limited ROM. Pt notes pain onset gradually over the past year, no mechanism of injury. He notes that pain is worst when attempting to raise his L hand overhead or overhead/away from his body in planes of abduction and flexion. He is R hand dominant and admits that his R shoulder can feel a little like how the Left side started occasionally. His L shoulder is his highest concern at this point. He has not had any imaging done. He admits to bilateral digits 1-3 tingling, and now since onset does admit to some 4th and 5th digit tingling on occasion . He actually describes digits 1-3 more so as someone used sandpaper on my fingers. He would like to be able to reach overhead while holding objects without shoulder discomfort. Future Testing and Treatments Planned radiograph if PT not successful Treatment Goals Patient/Caregiver Goals be able to lift overhead and more L shoulder pain-free Prior Functional Status Baseline Function- Other no issues with lifting or moving L shoulder Current Functional Impairments (Reported) Functional Limitations- Other unable to reach or lift light/ moderate objects overhead with LUE due to pain. 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 PT-OP-F Manual Assessment Start: 08/06/18 15:03 Freq: Status: Active Protocol: Document 08/06/18 09:50 RCC (Rec: 08/06/18 16:10 [facility] [email or web address]) Manual Assessments Soft Tissue Assessment Soft Tissue Mobility Assessment tenderness to palpation supraspinatus, rotator cuff distal attachment on the L Joint Mobility Assessment Joint Mobility Assessment hypomobile posterior and inferior glide of the GH joint on the L PT-OP-H Neuro Start: 08/06/18 15:03 Freq: Status: Active Protocol: Document 08/06/18 09:50 RCC (Rec: 08/06/18 16:10 [facility] [email or web address]) Deep Tendon Reflex & Clonus Assessment Deep Tendon Reflex Bilateral Brachioradialis Deep Tendon Reflex 2+ Normal Bilateral Tricep Deep Tendon Reflex 2+ Normal Bilateral Bicep Deep Tendon Reflex 2+ Normal PT-OP-J Posture/Palpation/Skin Start: 08/06/18 15:03 Freq: Status: Active Protocol: Document 08/06/18 09:50 RCC (Rec: 08/06/18 16:10 [facility] [email or web address]) Posture Evaluation Comments Posture Comments mod. forward head and rounded shoulders, L shoulder elevated > R with UT activation on the L in sitting. PT-OP-K Range of Motion Start: 08/06/18 15:03 Freq: Status: Active Protocol: Document 08/06/18 09:50 RCC (Rec: 08/06/18 16:10 [facility] [email or web address]) Shoulder Goniometric Range of Motion Shoulder Right Passive Shoulder ROM WFL Yes Testing Position Supine Flexion 170 Abduction 170 Left Passive Shoulder ROM WFL Yes Testing Position Supine Flexion 170 Abduction 170 Right Active Testing Position Sitting Flexion 170 Abduction 170 External Rotation at 90 degrees 95 Abduction Internal Rotation 80 Left Active Testing Position Sitting Flexion 160 Abduction 155 External Rotation at 90 degrees 86 Abduction Internal Rotation 80 PT-OP-L Special Tests Start: 08/06/18 15:03 Freq: Status: Active Protocol: Document 08/06/18 09:50 RCC (Rec: 08/06/18 16:10 [facility] [email or web address]) Special Tests Cervical Spine Special Tests Foraminal Compression Test Results negative B Spurling's Test Test Results negative B Vertebral Artery Test Results negative B Shoulder Special Tests Anterior Draw Test Results negative B Empty Can Test Results negative B Lift-Off Rotator Cuff Test Results negative B Elevation Impingement Test Results positive L Neer Impingement Test Results positive L Biceps Load II Test Test Results negative B Apprehension Test Test Results negative B Preston Reji Impingement Test Results positive L Drop Arm Rotator Cuff Test Results negative B Load and Shift Test Results negative B Speed's Biceps Test Results negative B AC Joint Compression Test Results negative B Neural Special Tests- Upper Body Radial Nerve Tension Test Results positive B Ulnar Nerve Tension Test Results positive B Median Nerve Tension Test Results positive B Vascular Special Tests Adson Maneuver Test Results negative B PT-OP-M Strength Start: 08/06/18 15:03 Freq: Status: Active Protocol: Document 08/06/18 09:50 RCC (Rec: 08/06/18 16:10 [facility] [email or web address]) Shoulder Strength Shoulder Manual Muscle Testing Right Flexion 5 Normal Abduction (C5) 4+ Good+ External Rotation 5 Normal Internal Rotation 5 Normal Left Flexion 4+ Good+ Abduction (C5) 4 Good External Rotation 4+ Good+ Internal Rotation 5 Normal Elbow/Forearm Strength Elbow and Forearm Manual Muscle Testing Right Flexion (C6) 5 Normal Extension (C7) 5 Normal Left Flexion (C6) 4+ Good+ Pronation 4+ Good+ PT-OP-T Assessment and Plan Start: 08/06/18 15:03 Freq: Status: Active Protocol: Document 11/15/18 13:08 RCC (Rec: 11/15/18 13:10 [facility] [email or web address]) Physical Therapy Assessment Assessment Summary Assessment Pt attended 5 physical therapy sessions overall in the month of August 2018. Pt was still having pain with reaching across midline, but appeared to be having improvements post -therapy treatments. Pt did not return to the clinic or schedule more physical therapy sessions after 08/22/18. At this time, the most recent plan of care is now . He will be d/c from physical therapy at this time due to failure to complete his most recent plan of care. Physical Therapy Plan Discharge Physical Therapy Discharge Reasons No Longer Attending PT
== END 2018-11-28 11:04 | disposition home or self-care (01) ==
LOC: PHYS 14:30
PROVIDERS: PCP Student in an Organized Health Care Education/Training Program; Visit Provider Student in an Organized Health Care Education/Training Program
DX: M25.512 Pain in left shoulder (principal)
CPT/HCPCS: 97010; 97110; 97140; 97161

== ENCOUNTER → 2019-05-08 13:35 | Outpatient (CLI) | payer MEDICARE, BC, SELFPAY ==
[2019-05-08 14:37] LABS: Hematocrit 45.4 % (41-53); Hemoglobin 15.5 g/dL (13.5-17.5)
[2019-05-08 14:48] LABS: BUN Creatinine Ratio 17.1 (6-22); Blood Urea Nitrogen 24 mg/dL (9-20); Calcium 9.3 mg/dL (8.4-10.2); Carbon Dioxide 26 mmol/L (22-32); Chloride 104 mmol/L (98-107); Estimated Glomerular Filt Rate 49.7 mL/min (>60); Glucose 116 mg/dL (80-110); HEMOLYSIS 40 (0-50); Potassium 4.5 mmol/L (3.4-5.1); Sodium 139 mmol/L (137-145); Uric Acid 4.9 mg/dL (3.5-8.5)
== END ==
PROVIDERS: PCP Student in an Organized Health Care Education/Training Program; Visit Provider Student in an Organized Health Care Education/Training Program
DX: D64.9 Anemia, unspecified (principal); I10 Essential (primary) hypertension; K57.90 Diverticulosis of intestine, part unspecified, without perforation or abscess without bleeding; M10.9 Gout, unspecified; R53.82 Chronic fatigue, unspecified
CPT/HCPCS: 36415; 80048; 83036; 84550; 85014; 85018

== ENCOUNTER → 2019-06-18 09:36 | Outpatient (CLI) | payer MEDICARE, BC, SELFPAY ==
--- NOTE | 2019-06-18 09:38 | DI.RAD.S_ITS ---
PROCEDURE: FL BARIUM SWALLOW W SPEECH INDICATIONS: Dysphagia, esophageal motility concern TECHNIQUE: Examination was conducted in conjunction with speech pathology per standard protocol. In the lateral projection, filming was performed of the patient swallowing. AP projection filming may also be performed with patient swallowing. COMPARISON: None. FINDINGS: Function: The oral preparatory phase appears normal, with proper containment. The subsequent oral propulsive phase, pharyngeal phase, and esophageal phase of swallowing also appear normal with all proffered substances. No laryngotracheal penetration or aspiration. No pathologic vallecular pooling. Morphology: No cricopharyngeal bar is identified. No cervical esophageal webs. No Zenker's diverticulum. No strictures. There is a moderate-sized hiatal hernia. The distal esophagus appears irregular. IMPRESSION: 1. No laryngotracheal penetration or aspiration. 2. A moderate-sized hiatal hernia. The distal esophagus appears irregular. Recommend double contrast esophagram or upper endoscopy for further evaluation. Dictated by: Bev Landaverde M.D. on 06/18/2019 at 12:05 Approved by: Bev Landaverde M.D. on 06/18/2019 at 12:07
--- NOTE | 2019-06-18 13:13 | ST.SWALLOW ---
Visit Care Team Role Provider Type Fred Erwin MD Attending Provider Physician Primary Care Provider Specialty: Internal Medicine Address: [address] [place] [address], [address], [place], [address] Email: [email or web address] Modified Barium Swallow Study ALIGNER Modified Barium Swallow Study Start: 06/18/19 11:11 Freq: Status: Active Protocol: Document 06/18/19 11:12 LNK (Rec: 06/18/19 13:01 LNK [email or web address]) Modified Barium Swallow Study Total Time Visit Start Time 10:30 Visit Stop Time 11:00 Total Visit Minutes [address] Erwin Reason for Referral dysphagia Setting Setting Outpatient Care Patient Information Identification Type Name,Date of Patient History Fredrick Mariee was seen for a Modifeid Barium Swallow Study at the referral of his physician, Dr. Erwin. He was accompanied by his to the appointment. According to Mr Anjum Mariee, he has been experiencing difficulty with swallowing, especially carrot sticks and rice. He also reports aspirating liquids. When he has difficulty swallowing, he describes having hiccups (his describes it as choking) followed by a sense of pain in his sternal area that feels like a contraction. He will frequently then regurgitate undigested foods, after which he then continues his meal. He reports the chest discomfort as occurring ~ 2 hours after eating with a lot of burping. He and his noted that this occurs after every meal. His stated that she thinks it is getting worse as time goes on. Subjective Observations Fredrick was seated in the fluooscopy chair. The procedure and instructions were provided to the him; he understood and agreed to proceed. Following the procedure, the MBSS video was evaluated in slow motion. Patient Positioning Position View Lat-A/P Imaging Lateral View Textures Administered Trials Presented Thin Liquid via Spoon,Thin Liquid via Cup,Pudding Thick Liquid via Spoon,Regular Textures,Barium Tablet Oral Phase Source: MBSIMP (TM) (C) Bolus Specific Scoring Grid Lip Closure No Impairment (WNL) Tongue Control During Bolus Hold No Impairment (WNL) Bolus Prep/Mastication No Impairment (WNL) Bolus Transport/Lingual Motion No Impairment (WNL) A/P Lingual Propulsion Delay No Oral Residue No Impairment (WNL) Residue Clearing No Impairment (WNL) Nasal Regurgitation No Additional Oral Phase Observations WNL Pharyngeal Phase Source: MBSIMP (TM) (C) Bolus Specific Scoring Grid Delayed Initiation of Pharyngeal Swallow No Soft Palate Elevation No Impairment (WNL) Tongue Base Strength/Range of Motion Mild Impairment Residue Along the Tongue Base No Laryngeal Elevation No Impairment (WNL) Anterior Hyoid Movement No Impairment (WNL) Vallecular Residue Yes Clearance of Vallecular Residue Mild Impairment Laryngeal Vestibular Closure No Impairment (WNL) Pharyngeal Stripping Wave No Impairment (WNL) Posterior Pharyngeal Wall Residue No Upper Esophageal Sphincter Opening WFL Residue in the Pyriform Sinuses No Pharyngoesophageal Backflow Observed Yes Additional Pharyngeal Phase Observations Pharyngeal swallow appeared to be WFL. There was residue at the tongue base which contributed to the pooling in the valeculla. With the solid trials, (cookie with barium paste) there was more residue pieces noted within the valeculla. This may explain Fredrick's difficulty with rice and carrot sticks. The tongue base residue/vallecullar residue was considered to be mild. No laryngeal penetration or A/P View Textures Administered Trials Presented Thin Liquid via Cup,Barium Tablet A/P View Observations Pharyngeal Contraction WFL Esophageal Observations Esophageal Function The esophageal phase was screened during the MBSS. The radiologist noted a moderate -sized hiatal hernia. The distal esophagus appears irregular. He recommend(ed) a double contrast esophagram or upper endoscopy for further evaluation. Recommend follow up with GI. Suggested to Fredrick and his that he may try to alternate liquids and solids in order to clear esophagus. The indicated that Fredrick will follow through with the suggestion. Clinical Impressions Dysphagia Type Swallowing WFL Patient Appropriate for Therapy No Recommendations Treatment Plan Recommended Referrals GI Consult
== END ==
PROVIDERS: PCP Student in an Organized Health Care Education/Training Program; Visit Provider Student in an Organized Health Care Education/Training Program
DX: R13.10 Dysphagia, unspecified (principal); K22.4 Dyskinesia of esophagus; K44.9 Diaphragmatic hernia without obstruction or gangrene
CPT/HCPCS: 74230; 92611

== ENCOUNTER → 2020-07-28 15:01 | Outpatient (CLI) | payer MEDICARE, BC, SELFPAY ==
[2020-07-28 17:07] LABS: Add Manual Diff / Slide Review NO; Basophils Absolute Auto 100 /uL (0-100); Basophils Percent Auto 0.9 % (0-2); Eosinophils Absolute Auto 300 /uL (0-450); Eosinophils Percent Auto 4.3 % (2-4); Hematocrit 42.9 % (41-53); Hemoglobin 14.7 g/dL (13.5-17.5); Lymphocytes Absolute Auto 1500 /uL (1100-4500); Lymphocytes Percent Auto 25.7 % (25-40); Mean Corpuscular HGB Conc 34.4 % (30-36); Mean Corpuscular Hemoglobin 32.7 PG (26-34); Mean Corpuscular Volume 95.1 fL (80-100); Monocytes Absolute Auto 600 /uL (0-900); Monocytes Percent Auto 10.7 % (3-14); Neutrophils Absolute Auto 3400 /uL (1500-7000); Neutrophils Percent Auto 58.4 % (50-75); Platelet Count 169 X10^3/uL (150-400); Red Blood Cell Count 4.51 X10^6/uL (4.5-5.9); Red Cell Distribution Width 13.3 % (11.6-14.8); White Blood Cell Count 5.9 X10^3/uL (4.5-11.0)
[2020-07-28 17:24] LABS: BUN Creatinine Ratio 18.1 (6-22); Blood Urea Nitrogen 26 mg/dL (9-20); Calcium 9.5 mg/dL (8.4-10.2); Carbon Dioxide 29 mmol/L (22-32); Chloride 104 mmol/L (98-107); Glucose 94 mg/dL (80-110); HEMOLYSIS < 15 (0-50); Sodium 139 mmol/L (137-145)
[2020-07-28 17:38] LABS: Vitamin D 25 Hydroxy (D3) 65.2 ng/mL (30.0-100.0)
[2020-07-28 17:53] LABS: TSH w/ Reflex to FT4 1.36 uIU/mL (0.47-4.68)
[2020-07-28 18:13] LABS: Vitamin B12 952 pg/mL (239-931)
== END ==
PROVIDERS: PCP Student in an Organized Health Care Education/Training Program; Referring Provider Student in an Organized Health Care Education/Training Program; Visit Provider Student in an Organized Health Care Education/Training Program
DX: G47.19 Other hypersomnia (principal); I10 Essential (primary) hypertension; M10.9 Gout, unspecified; N18.30 Chronic kidney disease, stage 3 unspecified
CPT/HCPCS: 36415; 80048; 82306; 82607; 84443; 85025

== ENCOUNTER → 2021-01-08 10:26 | Outpatient (CLI) | payer MEDICARE, BC, SELFPAY ==
[2021-01-08 11:05] LABS: COVID19 -Nasal RAPID Negative (Negative)
== END ==
PROVIDERS: PCP Student in an Organized Health Care Education/Training Program; Visit Provider Nurse Practitioner
DX: J02.9 Acute pharyngitis, unspecified (principal); R51.9 Headache, unspecified
CPT/HCPCS: 87635

== ENCOUNTER 2021-05-02 07:30 | Outpatient (RCR) | payer MEDICARE, BC, SELFPAY ==
--- NOTE | 2021-02-23 10:29 | PT.OIE ---
Current Diagnoses Unilateral primary osteoarthritis, right knee (02/23/21) Pain in right hip (02/23/21) Difficulty in walking, not elsewhere classified (02/23/21) Weakness (02/23/21) Past Medical History (Last Updated 07/28/20 @ 15:01 by Fred Erwin MD) Actinic keratosis (2000) Benign familial tremor (2015) Chickenpox (1971) CKD (chronic kidney disease) (2010) Colon polyps (2007) Depression (2005) Diastasis of rectus abdominis Diverticular disease (2007) External hemorrhoid Gout (2010) Hypercholesterolemia (Unknown) Osteoarthritis (2015) Speech and language deficits Tinnitus of both ears (2015) Past Surgical History (Last Updated 07/28/20 @ 15:01 by Fred Erwin MD) Status post cholecystectomy Visit Care Team Role Provider Type Fred Erwin MD Family Provider Physician Primary Care Provider Specialty: Internal Medicine Address: [address] [place] [address], [id number] Email: [email or web address] Attending Provider Non-Staff Referring Provider Specialty: Orthopedic Surgery Address: [address] [place] [address], [id number] Email: Physical Therapy Initial Evaluation PT-OP-A Visit Information Start: 02/22/21 16:25 Freq: Status: Active Protocol: Document 02/23/21 07:42 [facility] (Rec: 02/23/21 09:05 [facility] [id number]) Out-Patient Physical Therapy Visit Information Visit Information Visit Type Initial Evaluation Visit Note 06/12 Visit Start Time 08:15 Visit Stop Time 09:00 Total Visit Minutes 45 Visit Number 1 Number of EMPLOYEE WELFARE MANAGER Visits 0 PT-OP-B Current Condition Start: 02/22/21 16:25 Freq: Status: Active Protocol: Document 02/23/21 07:42 [facility] (Rec: 02/23/21 09:05 [facility] [id number]) Current Condition History of Current Condition Onset Date 4-5 years ago Current Complaints R knee pain and leg pain History of Current Condition Pt reports knee pain that started 4-5 years ago and he saw a local ortho who decided the best thing would not to do surgery (he has some meniscal tears and ligament tears per pt). He walks dog 2-3 miles most day and when he gets back , he has a knot in his quad and/or knot in HS and/or calf and goodman splint feeling and occ pain at lat ant knee. When he lifts up his leg, he gets some discomfrot around sup knee. Never any issues in LLE. Last MRI was 4 years ago. Pt reports he occ does stationary bike and feels his leg muscles working w/that. 4-5 years ago when it started it was more his knee would bother him a little but a couple years ago, it did change to the almost cramping feeling. He does do general stretches daily. Pt reports pain has been getting more consistant recently. Notes now he gets the pain most days. Pt reports LBP at belt line. He gets tightness almost like its going to cramp up and stops and slows down and puts on theraworks and a balm that has MSM & menthol. its not everyday or all the time. THere is a tenderness behind his knee and old MRI showed bakers cyst. Pt reprots he avoids squattin because he wants to avoid hurting his knee. He can kneel on his kneel and that almost never hurts. He also is very careful about twisting knee. Pt reports he thinks he has bursitis of R hip becaue he notices pain in lat hip he has pain in lat hips. He occ notices it for a little bit when walking. Prior Treatments and Tests MRI in past Treatment Goals Patient/Caregiver Goals Hoping PT will kick start him into a regular exercise routine, not just walking, wants to maintain strength in his legs to be able to easily get up/down and stairs without discomfort and be able to walk [place] park w/o pain, put off knee surgery PT-OP-C Subjective Start: 02/22/21 16:25 Freq: Status: Active Protocol: Document 02/23/21 07:42 [facility] (Rec: 02/23/21 09:05 [facility] [id number]) Patient Questionnaires Lower Extremity Functional Scale LEFS Score 60/80 OP-PT Pain Assessment Location R knee Pain Location Details ant lat knee Intensity 3 Scale Used Numeric (0 - 10) Description Cramping Description- Other sharp at knee; mm more like hot ball, aftermath of daniela horse Frequency Intermittent Pain Duration 30 min-1 hour Radiating Location quad, HS, calf, discomfort post knee Variations/Patterns R lat hip pain, LBP Pain Aggravating Factors Standing,Walking Other Pain Aggravating Factors hills mikey Other Pain Alleviating Factors theraworks, stretches, improves some when get off LEs PT-OP-D Balance Start: 02/22/21 16:25 Freq: Status: Active Protocol: Document 02/23/21 07:42 [facility] (Rec: 02/23/21 09:05 [facility] [id number]) Balance Tests Single Limb Standing Single Limb- Right >30 sec w/lat shear fo pelvis & UE use Single Limb- Left >30 sec w/lat shear fo pelvis & UE use PT-OP-F Manual Assessment Start: 02/22/21 16:25 Freq: Status: Active Protocol: Document 02/23/21 07:42 [facility] (Rec: 02/23/21 09:05 [facility] [id number]) Manual Assessments Soft Tissue Assessment Soft Tissue Mobility Assessment tenderness:HS, quads, ITB, calf, lat jt line PT-OP-G Mobility & Gait Start: 02/22/21 16:25 Freq: Status: Active Protocol: Document 02/23/21 07:42 [facility] (Rec: 02/23/21 09:05 [facility] [id number]) OP Gait Assessment Comments Gait Comments Dec pelvis motion, dec RUE motion, dec push off B, dec stance time slightly RLE Stair Climbing Evaluation Comments Stair Climbing Comments turns R foot out on decent - pain slight in R knee w/ descend, does reciprocal up/ down PT-OP-J Posture/Palpation/Skin Start: 02/22/21 16:25 Freq: Status: Active Protocol: Document 02/23/21 07:42 [facility] (Rec: 02/23/21 09:05 [facility] [id number]) Posture Evaluation [facility] Postural Classification System Lumbar Protective Mechanism Left AP 0 Lumbar Protective Mechanism Right AP 1 Lumbar Protective Mechanism Left PA 2 Lumbar Protective Mechanism Right PA 0 Comments Posture Comments pronation B feet, slight SB R w/slight L pelivc shear, inc of kyphosis; tibias neutral in standing and w/mini squat, B femers in IR ins tanding and R goes ER w/flex & L IR PT-OP-K Range of Motion Start: 02/22/21 16:25 Freq: Status: Active Protocol: Document 02/23/21 07:42 [facility] (Rec: 02/23/21 09:05 [facility] [id number]) Knee Goniometric Range of Motion Knee Right Flexion Active (degrees) 127 Extension Active (degrees) 3 Comments discomfort slight w/ext Left Flexion Active (degrees) 140 Extension Active (degrees) 0 PT-OP-L Special Tests Start: 02/22/21 16:25 Freq: Status: Active Protocol: Document 02/23/21 07:42 [facility] (Rec: 02/23/21 09:05 [facility] [id number]) Special Tests Knee Special Tests Apley's Compression Test Results neg Newman Chondromalacia Test Results positive-improves w/med glide Alexus Test Test Results neg Varus- 25 Degrees Test Results slight laxity Valgus- 25 Degrees Test Results neg Shena's Test Test Results positive for R ITB tightness Hines's Compression Test Results neg Clara's Test Results slight laxity Thessaly Test 5 Degrees Test Results neg Roel Test Results quad and RF tightness B Posterior Draw Test Results neg Slump Comments slump and ext sit neg B SLR Test Results 70 deg R, 80 deg L HS tightness PT-OP-M Strength Start: 02/22/21 16:25 Freq: Status: Active Protocol: Document 02/23/21 07:42 [facility] (Rec: 02/23/21 09:05 [facility] [id number]) Hip Strength Hip Manual Muscle Testing Right Flexion (L2) 3+ Fair+ Extension (S1) 4- Good- Abduction 4- Good- Adduction 4+ Good+ External Rotation 4 Good Internal Rotation 3+ Fair+ Left Flexion (L2) 3+ Fair+ Extension (S1) 4- Good- Abduction 4+ Good+ Adduction 4+ Good+ External Rotation 4+ Good+ Internal Rotation 4- Good- Knee Strength Knee Manual Muscle Testing Right Flexion (S2) 4+ Good+ Extension (L3) 4- Good- Left Flexion (S2) 4+ Good+ Extension (L3) 4 Good Ankle/Foot Strength Ankle and Foot Manual Muscle Testing Right Dorsiflexion (L4) 5 Normal Plantarflexion (S1) 5 Normal Left Dorsiflexion (L4) 5 Normal Plantarflexion (S1) 5 Normal Comments 20 heel raises B PT-OP-T Assessment and Plan Start: 02/22/21 16:25 Freq: Status: Active Protocol: Document 02/23/21 07:42 [facility] (Rec: 02/23/21 09:05 [facility] [id number]) Physical Therapy Assessment Rehab Potential Rehabilitation Potential Good Evaluation Complexity Number of Personal Factors/Comorbidities 3 or More Number of Body Systems Impaired 4 or More Clinical Presentation at Evaluation Evolving Impairments Impairments Activity Tolerance,Balance, Functional Activities, Functional Mobility,Gait,Pain, Posture,ROM,Soft Tissue Mobility,Strength Goals ROM Short Term Goal (STG) Pt will have full R knee ext w /o inc pain to improve gait mechanics STG Duration 04/01/21 strength Short Term Goal (STG) Pt will be indep w/HEP STG Duration 03/25 Snf Goal (LTG) Pt will have 5/5 LE MMT in all planes and at least 3/5 LPM in all planes without pain in order to show improved stabiltiy and strength to allow pt to do more w/o resulting pain. LTG Duration 04/25/21 stairs Tool Grinder Operator Surface Goal (LTG) pt will be able to descend stairs w/o any pain in R knee. LTG Duration 04/25/21 walking Snf Goal (LTG) Pt will be able to walk [place] park without pain showing he can go up/down hills and walk for distance w/o inc pain LTG Duration 04/25/21 Assessment Summary Assessment Pt presents w/chronic low level R knee pain that has progressed to having pain in ant/post thigh and goodman along w/noting recent R hip pain and history of LBP. Neural tension testing did now show positive for LEs but pt does have more tightness on R side> L which may contribute to the pain along w/impaired gait pattern. He would benefit from PT to work on these deficits to allow him to do his typical daily activities w/o resulting pain. Physical Therapy Plan Frequency and Duration Frequency of Treatment 2x/Week Duration of Treatment 2 months Plan of Care Start Date 02/23/21 Plan of Care End Date 04/25/21 Therapeutic Interventions Therapeutic Interventions Aquatic Therapy,Balance Training,Gait Training,Home Exercise Program,Joint Mobilizations,Manual Therapy, Neuromuscular Re-education, Patient/Caregiver Education, Self-Care/Home Management,Soft Tissue Mobilization,Taping, Therapeutic Activities, Therapeutic Exercises Modalities Cold Pack/Ice Massage,Electric Stimulation,Hot Packs, Infrared Therapy,Ultrasound Next Visit Focus/Plan Next Note Type Treatment Note Next Visit Plan review pts current stretches, help pt find HS stretch that works, STM to HS, calf & quads , jt mobs to knee, Hip abd and ext strengthening, squats
--- NOTE | 2021-02-23 10:29 | PT.OPPOC ---
Physical, Occupational & Speech Therapy At [facility] Current Diagnoses Unilateral primary osteoarthritis, right knee (02/23/21) Pain in right hip (02/23/21) Difficulty in walking, not elsewhere classified (02/23/21) Weakness (02/23/21) Visit Care Team Role Provider Type Fred Erwin MD Family Provider Physician Primary Care Provider Specialty: Internal Medicine Address: [address] [place] [address], [address], [place], [address] Email: [email or web address] Oskar Joyce MD Attending Provider Non-Staff Referring Provider Specialty: Orthopedic Surgery Address: [address] [place] [address], [id number] Email: Plan Of Care PT-OP-T Assessment and Plan Start: 02/22/21 16:25 Freq: Status: Active Protocol: Document 02/23/21 07:42 [facility] (Rec: 02/23/21 09:05 [facility] [id number]) Physical Therapy Assessment Rehab Potential Rehabilitation Potential Good Evaluation Complexity Number of Personal Factors/Comorbidities 3 or More Number of Body Systems Impaired 4 or More Clinical Presentation at Evaluation Evolving Impairments Impairments Activity Tolerance,Balance, Functional Activities, Functional Mobility,Gait,Pain, Posture,ROM,Soft Tissue Mobility,Strength Goals ROM Short Term Goal (STG) Pt will have full R knee ext w /o inc pain to improve gait mechanics STG Duration 04/01/21 strength Short Term Goal (STG) Pt will be indep w/HEP STG Duration 03/25 Assisted Goal (LTG) Pt will have 5/5 LE MMT in all planes and at least 3/5 LPM in all planes without pain in order to show improved stabiltiy and strength to allow pt to do more w/o resulting pain. LTG Duration 04/25/21 stairs Nutritionalist Goal (LTG) pt will be able to descend stairs w/o any pain in R knee. LTG Duration 04/25/21 walking Nutritionalist Goal (LTG) Pt will be able to walk [place] park without pain showing he can go up/down hills and walk for distance w/o inc pain LTG Duration 04/25/21 Assessment Summary Assessment Pt presents w/chronic low level R knee pain that has progressed to having pain in ant/post thigh and goodman along w/noting recent R hip pain and history of LBP. Neural tension testing did now show positive for LEs but pt does have more tightness on R side> L which may contribute to the pain along w/impaired gait pattern. He would benefit from PT to work on these deficits to allow him to do his typical daily activities w/o resulting pain. Physical Therapy Plan Frequency and Duration Frequency of Treatment 2x/Week Duration of Treatment 2 months Plan of Care Start Date 02/23/21 Plan of Care End Date 04/25/21 Therapeutic Interventions Therapeutic Interventions Aquatic Therapy,Balance Training,Gait Training,Home Exercise Program,Joint Mobilizations,Manual Therapy, Neuromuscular Re-education, Patient/Caregiver Education, Self-Care/Home Management,Soft Tissue Mobilization,Taping, Therapeutic Activities, Therapeutic Exercises Modalities Cold Pack/Ice Massage,Electric Stimulation,Hot Packs, Infrared Therapy,Ultrasound Next Visit Focus/Plan Next Note Type Treatment Note Next Visit Plan review pts current stretches, help pt find HS stretch that works, STM to HS, calf & quads , jt mobs to knee, Hip abd and ext strengthening, squats Plan of Care Dates Plan of Care Start Date 02/23/21 Plan of Care End Date 04/25/21 Electronically Signed by: Linda Sampson, PT 02/23/21 1029 Please Sign and Return: I have reviewed this Plan of Care and certify that the skilled therapy services above are required to meet the patient?s needs. Physician Signature Date Printed Name and Credentials Clinical Instructor Signature Printed Name and Credentials
--- NOTE | 2021-03-06 08:19 | PT.OTN ---
Current Diagnoses Unilateral primary osteoarthritis, right knee (03/06/21) Pain in right hip (03/06/21) Difficulty in walking, not elsewhere classified (03/06/21) Weakness (03/06/21) Physical Therapy Treatment Note PT-OP-A Visit Information Start: 02/22/21 16:25 Freq: Status: Active Protocol: Document 03/06/21 07:34 [facility] (Rec: 03/06/21 08:19 [facility] [id number]) Out-Patient Physical Therapy Visit Information Visit Information Visit Type Treatment Note Visit Note 07/13 Visit Start Time 07:31 Visit Stop Time 08:12 Total Visit Minutes 41 Visit Number 2 Number of COMMUNITY ORGANIZER Visits 0 PT-OP-B Current Condition Start: 02/22/21 16:25 Freq: Status: Active Protocol: Document 02/23/21 07:42 [facility] (Rec: 02/23/21 09:05 [facility] [id number]) Current Condition History of Current Condition Onset Date 4-5 years ago Current Complaints R knee pain and leg pain History of Current Condition Pt reports knee pain that started 4-5 years ago and he saw a local ortho who decided the best thing would not to do surgery (he has some meniscal tears and ligament tears per pt). He walks dog 2-3 miles most day and when he gets back , he has a knot in his quad and/or knot in HS and/or calf and goodman splint feeling and occ pain at lat ant knee. When he lifts up his leg, he gets some discomfrot around sup knee. Never any issues in LLE. Last MRI was 4 years ago. Pt reports he occ does stationary bike and feels his leg muscles working w/that. 4-5 years ago when it started it was more his knee would bother him a little but a couple years ago, it did change to the almost cramping feeling. He does do general stretches daily. Pt reports pain has been getting more consistant recently. Notes now he gets the pain most days. Pt reports LBP at belt line. He gets tightness almost like its going to cramp up and stops and slows down and puts on theraworks and a balm that has MSM & menthol. its not everyday or all the time. THere is a tenderness behind his knee and old MRI showed bakers cyst. Pt reprots he avoids squattin because he wants to avoid hurting his knee. He can kneel on his kneel and that almost never hurts. He also is very careful about twisting knee. Pt reports he thinks he has bursitis of R hip becaue he notices pain in lat hip he has pain in lat hips. He occ notices it for a little bit when walking. Prior Treatments and Tests MRI in past Treatment Goals Patient/Caregiver Goals Hoping PT will kick start him into a regular exercise routine, not just walking, wants to maintain strength in his legs to be able to easily get up/down and stairs without discomfort and be able to walk [place] park w/o pain, put off knee surgery PT-OP-C Subjective Start: 02/22/21 16:25 Freq: Status: Active Protocol: Document 03/06/21 07:34 [facility] (Rec: 03/06/21 08:19 [facility] [id number]) OP-PT Subjective Patient Comments Patient Comments Pt reports feeling stiff this AM. NOtes walks mult days a weekb ut only does one day with hills PT-OP-D Balance Start: 02/22/21 16:25 Freq: Status: Active Protocol: Document 02/23/21 07:42 [facility] (Rec: 02/23/21 09:05 [facility] [id number]) Balance Tests Single Limb Standing Single Limb- Right >30 sec w/lat shear fo pelvis & UE use Single Limb- Left >30 sec w/lat shear fo pelvis & UE use PT-OP-F Manual Assessment Start: 02/22/21 16:25 Freq: Status: Active Protocol: Document 02/23/21 07:42 [facility] (Rec: 02/23/21 09:05 [facility] [id number]) Manual Assessments Soft Tissue Assessment Soft Tissue Mobility Assessment tenderness:HS, quads, ITB, calf, lat jt line PT-OP-G Mobility & Gait Start: 02/22/21 16:25 Freq: Status: Active Protocol: Document 02/23/21 07:42 [facility] (Rec: 02/23/21 09:05 [facility] [id number]) OP Gait Assessment Comments Gait Comments Dec pelvis motion, dec RUE motion, dec push off B, dec stance time slightly RLE Stair Climbing Evaluation Comments Stair Climbing Comments turns R foot out on decent - pain slight in R knee w/ descend, does reciprocal up/ down PT-OP-J Posture/Palpation/Skin Start: 02/22/21 16:25 Freq: Status: Active Protocol: Document 02/23/21 07:42 [facility] (Rec: 02/23/21 09:05 [facility] [id number]) Posture Evaluation [facility] Postural Classification System Lumbar Protective Mechanism Left AP 0 Lumbar Protective Mechanism Right AP 1 Lumbar Protective Mechanism Left PA 2 Lumbar Protective Mechanism Right PA 0 Comments Posture Comments pronation B feet, slight SB R w/slight L pelivc shear, inc of kyphosis; tibias neutral in standing and w/mini squat, B femers in IR ins tanding and R goes ER w/flex & L IR PT-OP-K Range of Motion Start: 02/22/21 16:25 Freq: Status: Active Protocol: Document 02/23/21 07:42 [facility] (Rec: 02/23/21 09:05 [facility] [id number]) Knee Goniometric Range of Motion Knee Right Flexion Active (degrees) 127 Extension Active (degrees) 3 Comments discomfort slight w/ext Left Flexion Active (degrees) 140 Extension Active (degrees) 0 PT-OP-L Special Tests Start: 02/22/21 16:25 Freq: Status: Active Protocol: Document 02/23/21 07:42 [facility] (Rec: 02/23/21 09:05 [facility] [id number]) Special Tests Knee Special Tests Apley's Compression Test Results neg Newman Chondromalacia Test Results positive-improves w/med glide Alexus Test Test Results neg Varus- 25 Degrees Test Results slight laxity Valgus- 25 Degrees Test Results neg Shena's Test Test Results positive for R ITB tightness Hines's Compression Test Results neg Clara's Test Results slight laxity Thessaly Test 5 Degrees Test Results neg Roel Test Results quad and RF tightness B Posterior Draw Test Results neg Slump Comments slump and ext sit neg B SLR Test Results 70 deg R, 80 deg L HS tightness PT-OP-M Strength Start: 02/22/21 16:25 Freq: Status: Active Protocol: Document 02/23/21 07:42 [facility] (Rec: 02/23/21 09:05 [facility] [id number]) Hip Strength Hip Manual Muscle Testing Right Flexion (L2) 3+ Fair+ Extension (S1) 4- Good- Abduction 4- Good- Adduction 4+ Good+ External Rotation 4 Good Internal Rotation 3+ Fair+ Left Flexion (L2) 3+ Fair+ Extension (S1) 4- Good- Abduction 4+ Good+ Adduction 4+ Good+ External Rotation 4+ Good+ Internal Rotation 4- Good- Knee Strength Knee Manual Muscle Testing Right Flexion (S2) 4+ Good+ Extension (L3) 4- Good- Left Flexion (S2) 4+ Good+ Extension (L3) 4 Good Ankle/Foot Strength Ankle and Foot Manual Muscle Testing Right Dorsiflexion (L4) 5 Normal Plantarflexion (S1) 5 Normal Left Dorsiflexion (L4) 5 Normal Plantarflexion (S1) 5 Normal Comments 20 heel raises B PT-OP-Q Treatments Start: 02/22/21 16:25 Freq: Status: Active Protocol: Document 03/06/21 07:34 [facility] (Rec: 03/06/21 08:19 [facility] [id number]) Cardio Equipment Bicycle (Upright) Duration (Minutes) 6 Resistance 6 Seat Position 5 Therapeutic Exercises Standing Exercises HS Standing Exercise Name stretch Side bilateral Reps/Minutes 30 sec sidestep Side bilateral Equipment Used L2 Reps/Minutes 20ft squat Standing Exercise Name mini over chair Side bilateral Reps/Minutes 2x10 hip ext Side bilateral Equipment Used L2 Reps/Minutes 15 hip abd Side bilateral Equipment Used L2 Reps/Minutes 15 Manual Therapy Treatment Soft Tissue Mobilization thigh Body Location circumfrential Mobilization Type Myofascial Release HS Body Location btwn mm w/knee ext Mobilization Type Rolling,Sustained Pressure Intensity/Depth Moderate ITB Body Location R Mobilization Type Rolling,Strumming Intensity/Depth Moderate Body Position Supine Self-Care/Home Management Treatment Education Other Education review of pt's own stretches. edu to hold for 30 sec when stretching PT-OP-T Assessment and Plan Start: 02/22/21 16:25 Freq: Status: Active Protocol: Document 03/06/21 07:34 [facility] (Rec: 03/06/21 08:19 [facility] [id number]) Physical Therapy Assessment Goals ROM Short Term Goal (STG) Pt will have full R knee ext w /o inc pain to improve gait mechanics STG Duration 04/01/21 strength Short Term Goal (STG) Pt will be indep w/HEP STG Duration 03/25 Insurance Agency Owner Goal (LTG) Pt will have 5/5 LE MMT in all planes and at least 3/5 LPM in all planes without pain in order to show improved stabiltiy and strength to allow pt to do more w/o resulting pain. LTG Duration 04/25/21 stairs Penitentiary Goal (LTG) pt will be able to descend stairs w/o any pain in R knee. LTG Duration 04/25/21 walking Penitentiary Goal (LTG) Pt will be able to walk [place] park without pain showing he can go up/down hills and walk for distance w/o inc pain LTG Duration 04/25/21 Assessment Summary Assessment Pt did well iwth exericses with cueing but did note significant work on glutes w/ exercises. Cues for squats for knee position and full hip ext at end range. Pt required edu for longer holds w/his stretches. Improved knee ext w /manual Physical Therapy Plan Frequency and Duration Frequency of Treatment 2x/Week Duration of Treatment 2 months Plan of Care Start Date 02/23/21 Plan of Care End Date 04/25/21 Next Visit Focus/Plan Next Note Type Treatment Note Next Visit Plan review exercises, manual to improve ROM and dec pain
--- NOTE | 2021-03-13 08:16 | PT.OTN ---
Current Diagnoses Unilateral primary osteoarthritis, right knee (03/13/21) Pain in right hip (03/13/21) Difficulty in walking, not elsewhere classified (03/13/21) Weakness (03/13/21) Physical Therapy Treatment Note PT-OP-A Visit Information Start: 02/22/21 16:25 Freq: Status: Active Protocol: Document 03/13/21 07:29 [facility] (Rec: 03/13/21 08:15 [facility] [id number]) Out-Patient Physical Therapy Visit Information Visit Information Visit Type Treatment Note Visit Note 08/10 Visit Start Time 07:31 Visit Stop Time 08:11 Total Visit Minutes 40 Visit Number 3 Number of CONVEYOR LINE BATTERY CHARGER Visits 0 PT-OP-B Current Condition Start: 02/22/21 16:25 Freq: Status: Active Protocol: Document 02/23/21 07:42 [facility] (Rec: 02/23/21 09:05 [facility] [id number]) Current Condition History of Current Condition Onset Date 4-5 years ago Current Complaints R knee pain and leg pain History of Current Condition Pt reports knee pain that started 4-5 years ago and he saw a local ortho who decided the best thing would not to do surgery (he has some meniscal tears and ligament tears per pt). He walks dog 2-3 miles most day and when he gets back , he has a knot in his quad and/or knot in HS and/or calf and goodman splint feeling and occ pain at lat ant knee. When he lifts up his leg, he gets some discomfrot around sup knee. Never any issues in LLE. Last MRI was 4 years ago. Pt reports he occ does stationary bike and feels his leg muscles working w/that. 4-5 years ago when it started it was more his knee would bother him a little but a couple years ago, it did change to the almost cramping feeling. He does do general stretches daily. Pt reports pain has been getting more consistant recently. Notes now he gets the pain most days. Pt reports LBP at belt line. He gets tightness almost like its going to cramp up and stops and slows down and puts on theraworks and a balm that has MSM & menthol. its not everyday or all the time. THere is a tenderness behind his knee and old MRI showed bakers cyst. Pt reprots he avoids squattin because he wants to avoid hurting his knee. He can kneel on his kneel and that almost never hurts. He also is very careful about twisting knee. Pt reports he thinks he has bursitis of R hip becaue he notices pain in lat hip he has pain in lat hips. He occ notices it for a little bit when walking. Prior Treatments and Tests MRI in past Treatment Goals Patient/Caregiver Goals Hoping PT will kick start him into a regular exercise routine, not just walking, wants to maintain strength in his legs to be able to easily get up/down and stairs without discomfort and be able to walk [place] w/o pain, put off knee surgery PT-OP-C Subjective Start: 02/22/21 16:25 Freq: Status: Active Protocol: Document 03/13/21 07:29 [facility] (Rec: 03/13/21 08:15 [facility] [id number]) OP-PT Subjective Patient Comments Patient Comments Pt reports he feels like he is having a hard time with doing the squat properly PT-OP-D Balance Start: 02/22/21 16:25 Freq: Status: Active Protocol: Document 02/23/21 07:42 [facility] (Rec: 02/23/21 09:05 [facility] [id number]) Balance Tests Single Limb Standing Single Limb- Right >30 sec w/lat shear fo pelvis & UE use Single Limb- Left >30 sec w/lat shear fo pelvis & UE use PT-OP-F Manual Assessment Start: 02/22/21 16:25 Freq: Status: Active Protocol: Document 02/23/21 07:42 [facility] (Rec: 02/23/21 09:05 [facility] [id number]) Manual Assessments Soft Tissue Assessment Soft Tissue Mobility Assessment tenderness:HS, quads, ITB, calf, lat jt line PT-OP-G Mobility & Gait Start: 02/22/21 16:25 Freq: Status: Active Protocol: Document 02/23/21 07:42 [facility] (Rec: 02/23/21 09:05 [facility] [id number]) OP Gait Assessment Comments Gait Comments Dec pelvis motion, dec RUE motion, dec push off B, dec stance time slightly RLE Stair Climbing Evaluation Comments Stair Climbing Comments turns R foot out on decent - pain slight in R knee w/ descend, does reciprocal up/ down PT-OP-J Posture/Palpation/Skin Start: 02/22/21 16:25 Freq: Status: Active Protocol: Document 02/23/21 07:42 [facility] (Rec: 02/23/21 09:05 [facility] [id number]) Posture Evaluation [facility] Postural Classification System Lumbar Protective Mechanism Left AP 0 Lumbar Protective Mechanism Right AP 1 Lumbar Protective Mechanism Left PA 2 Lumbar Protective Mechanism Right PA 0 Comments Posture Comments pronation B feet, slight SB R w/slight L pelivc shear, inc of kyphosis; tibias neutral in standing and w/mini squat, B femers in IR ins tanding and R goes ER w/flex & L IR PT-OP-K Range of Motion Start: 02/22/21 16:25 Freq: Status: Active Protocol: Document 02/23/21 07:42 [facility] (Rec: 02/23/21 09:05 [facility] [id number]) Knee Goniometric Range of Motion Knee Right Flexion Active (degrees) 127 Extension Active (degrees) 3 Comments discomfort slight w/ext Left Flexion Active (degrees) 140 Extension Active (degrees) 0 PT-OP-L Special Tests Start: 02/22/21 16:25 Freq: Status: Active Protocol: Document 02/23/21 07:42 [facility] (Rec: 02/23/21 09:05 [facility] [id number]) Special Tests Knee Special Tests Apley's Compression Test Results neg Newman Chondromalacia Test Results positive-improves w/med glide Alexus Test Test Results neg Varus- 25 Degrees Test Results slight laxity Valgus- 25 Degrees Test Results neg Shena's Test Test Results positive for R ITB tightness Hines's Compression Test Results neg Clara's Test Results slight laxity Thessaly Test 5 Degrees Test Results neg Roel Test Results quad and RF tightness B Posterior Draw Test Results neg Slump Comments slump and ext sit neg B SLR Test Results 70 deg R, 80 deg L HS tightness PT-OP-M Strength Start: 02/22/21 16:25 Freq: Status: Active Protocol: Document 02/23/21 07:42 [facility] (Rec: 02/23/21 09:05 [facility] [id number]) Hip Strength Hip Manual Muscle Testing Right Flexion (L2) 3+ Fair+ Extension (S1) 4- Good- Abduction 4- Good- Adduction 4+ Good+ External Rotation 4 Good Internal Rotation 3+ Fair+ Left Flexion (L2) 3+ Fair+ Extension (S1) 4- Good- Abduction 4+ Good+ Adduction 4+ Good+ External Rotation 4+ Good+ Internal Rotation 4- Good- Knee Strength Knee Manual Muscle Testing Right Flexion (S2) 4+ Good+ Extension (L3) 4- Good- Left Flexion (S2) 4+ Good+ Extension (L3) 4 Good Ankle/Foot Strength Ankle and Foot Manual Muscle Testing Right Dorsiflexion (L4) 5 Normal Plantarflexion (S1) 5 Normal Left Dorsiflexion (L4) 5 Normal Plantarflexion (S1) 5 Normal Comments 20 heel raises B PT-OP-Q Treatments Start: 02/22/21 16:25 Freq: Status: Active Protocol: Document 03/13/21 07:29 [facility] (Rec: 03/13/21 08:15 [facility] [id number]) Cardio Equipment Recumbent Bicycle Duration (Minutes) 5 Resistance 8 Seat Position 7 Therapeutic Exercises Supine Exercises bridge Side bilateral Reps/Minutes 5 sec x10 SLR Supine Exercise Name focus on core Side bilateral Reps/Minutes 15 Standing Exercises HS Standing Exercise Name stretch Side bilateral Reps/Minutes 30 sec sidestep Side bilateral Equipment Used L2 Reps/Minutes 2x15ft squat Standing Exercise Name mini over chair Side bilateral Reps/Minutes 2x10 Comments cues for buttocks back hip ext Side bilateral Equipment Used L2 Reps/Minutes 15 hip abd Side bilateral Equipment Used L2 Reps/Minutes 15 Manual Therapy Treatment Soft Tissue Mobilization HS Body Location btwn mm w/knee ext Mobilization Type Rolling,Sustained Pressure Intensity/Depth Moderate ITB Body Location R Mobilization Type Rolling,Strumming Intensity/Depth Moderate Body Position Supine Comments w/knee ext Joint Mobilizations tibfib Joint AP fib R Patellofemoral Direction sup, inf PT-OP-T Assessment and Plan Start: 02/22/21 16:25 Freq: Status: Active Protocol: Document 03/13/21 07:29 [facility] (Rec: 03/13/21 08:15 [facility] [id number]) Physical Therapy Assessment Goals ROM Short Term Goal (STG) Pt will have full R knee ext w /o inc pain to improve gait mechanics STG Duration 04/01/21 strength Short Term Goal (STG) Pt will be indep w/HEP STG Duration 03/25 Wheel Installer Goal (LTG) Pt will have 5/5 LE MMT in all planes and at least 3/5 LPM in all planes without pain in order to show improved stabiltiy and strength to allow pt to do more w/o resulting pain. LTG Duration 04/25/21 stairs Wheel Installer Goal (LTG) pt will be able to descend stairs w/o any pain in R knee. LTG Duration 04/25/21 walking Group Home Goal (LTG) Pt will be able to walk [place] park without pain showing he can go up/down hills and walk for distance w/o inc pain LTG Duration 04/25/21 Assessment Summary Assessment Pt reuqired very few cues with exercises today except with squatting, still needs cueing for form. Improved knee ext after manual treatment but pt still has discomfort at end range. Physical Therapy Plan Frequency and Duration Frequency of Treatment 2x/Week Duration of Treatment 2 months Plan of Care Start Date 02/23/21 Plan of Care End Date 04/25/21 Next Visit Focus/Plan Next Note Type Treatment Note Next Visit Plan cont to advance hip stability & core strength & work on manual to improve ROM and dec pain
--- NOTE | 2021-03-21 08:15 | PT.OTN ---
Current Diagnoses Unilateral primary osteoarthritis, right knee (03/21/21) Pain in right hip (03/21/21) Difficulty in walking, not elsewhere classified (03/21/21) Weakness (03/21/21) Physical Therapy Treatment Note PT-OP-A Visit Information Start: 02/22/21 16:25 Freq: Status: Active Protocol: Document 03/21/21 07:28 [facility] (Rec: 03/21/21 08:15 [facility] [id number]) Out-Patient Physical Therapy Visit Information Visit Information Visit Type Treatment Note Visit Note 09/10 Visit Start Time 07:30 Visit Stop Time 08:10 Total Visit Minutes 40 Visit Number 4 Number of SUPERVISOR RECEIVING AND PROCESSING Visits 0 PT-OP-B Current Condition Start: 02/22/21 16:25 Freq: Status: Active Protocol: Document 02/23/21 07:42 [facility] (Rec: 02/23/21 09:05 [facility] [id number]) Current Condition History of Current Condition Onset Date 4-5 years ago Current Complaints R knee pain and leg pain History of Current Condition Pt reports knee pain that started 4-5 years ago and he saw a local ortho who decided the best thing would not to do surgery (he has some meniscal tears and ligament tears per pt). He walks dog 2-3 miles most day and when he gets back , he has a knot in his quad and/or knot in HS and/or calf and goodman splint feeling and occ pain at lat ant knee. When he lifts up his leg, he gets some discomfrot around sup knee. Never any issues in LLE. Last MRI was 4 years ago. Pt reports he occ does stationary bike and feels his leg muscles working w/that. 4-5 years ago when it started it was more his knee would bother him a little but a couple years ago, it did change to the almost cramping feeling. He does do general stretches daily. Pt reports pain has been getting more consistant recently. Notes now he gets the pain most days. Pt reports LBP at belt line. He gets tightness almost like its going to cramp up and stops and slows down and puts on theraworks and a balm that has MSM & menthol. its not everyday or all the time. THere is a tenderness behind his knee and old MRI showed bakers cyst. Pt reprots he avoids squattin because he wants to avoid hurting his knee. He can kneel on his kneel and that almost never hurts. He also is very careful about twisting knee. Pt reports he thinks he has bursitis of R hip becaue he notices pain in lat hip he has pain in lat hips. He occ notices it for a little bit when walking. Prior Treatments and Tests MRI in past Treatment Goals Patient/Caregiver Goals Hoping PT will kick start him into a regular exercise routine, not just walking, wants to maintain strength in his legs to be able to easily get up/down and stairs without discomfort and be able to walk [facility] w/o pain, put off knee surgery PT-OP-C Subjective Start: 02/22/21 16:25 Freq: Status: Active Protocol: Document 03/21/21 07:28 [facility] (Rec: 03/21/21 08:15 [facility] [id number]) OP-PT Subjective Patient Comments Patient Comments Pt reports pain mostly in thigh. Pain may be better. He had to drive to/from [facility] and R leg (HS & calf) felt like it was cramping up. PT-OP-D Balance Start: 02/22/21 16:25 Freq: Status: Active Protocol: Document 02/23/21 07:42 [facility] (Rec: 02/23/21 09:05 [facility] [id number]) Balance Tests Single Limb Standing Single Limb- Right >30 sec w/lat shear fo pelvis & UE use Single Limb- Left >30 sec w/lat shear fo pelvis & UE use PT-OP-F Manual Assessment Start: 02/22/21 16:25 Freq: Status: Active Protocol: Document 02/23/21 07:42 [facility] (Rec: 02/23/21 09:05 [facility] [id number]) Manual Assessments Soft Tissue Assessment Soft Tissue Mobility Assessment tenderness:HS, quads, ITB, calf, lat jt line PT-OP-G Mobility & Gait Start: 02/22/21 16:25 Freq: Status: Active Protocol: Document 02/23/21 07:42 [facility] (Rec: 02/23/21 09:05 [facility] [id number]) OP Gait Assessment Comments Gait Comments Dec pelvis motion, dec RUE motion, dec push off B, dec stance time slightly RLE Stair Climbing Evaluation Comments Stair Climbing Comments turns R foot out on decent - pain slight in R knee w/ descend, does reciprocal up/ down PT-OP-J Posture/Palpation/Skin Start: 02/22/21 16:25 Freq: Status: Active Protocol: Document 02/23/21 07:42 [facility] (Rec: 02/23/21 09:05 [facility] [id number]) Posture Evaluation [facility] Postural Classification System Lumbar Protective Mechanism Left AP 0 Lumbar Protective Mechanism Right AP 1 Lumbar Protective Mechanism Left PA 2 Lumbar Protective Mechanism Right PA 0 Comments Posture Comments pronation B feet, slight SB R w/slight L pelivc shear, inc of kyphosis; tibias neutral in standing and w/mini squat, B femers in IR ins tanding and R goes ER w/flex & L IR PT-OP-K Range of Motion Start: 02/22/21 16:25 Freq: Status: Active Protocol: Document 02/23/21 07:42 [facility] (Rec: 02/23/21 09:05 [facility] [id number]) Knee Goniometric Range of Motion Knee Right Flexion Active (degrees) 127 Extension Active (degrees) 3 Comments discomfort slight w/ext Left Flexion Active (degrees) 140 Extension Active (degrees) 0 PT-OP-L Special Tests Start: 02/22/21 16:25 Freq: Status: Active Protocol: Document 02/23/21 07:42 [facility] (Rec: 02/23/21 09:05 [facility] [id number]) Special Tests Knee Special Tests Apley's Compression Test Results neg Newman Chondromalacia Test Results positive-improves w/med glide Alexus Test Test Results neg Varus- 25 Degrees Test Results slight laxity Valgus- 25 Degrees Test Results neg Shena's Test Test Results positive for R ITB tightness Hines's Compression Test Results neg Clara's Test Results slight laxity Thessaly Test 5 Degrees Test Results neg Roel Test Results quad and RF tightness B Posterior Draw Test Results neg Slump Comments slump and ext sit neg B SLR Test Results 70 deg R, 80 deg L HS tightness PT-OP-M Strength Start: 02/22/21 16:25 Freq: Status: Active Protocol: Document 02/23/21 07:42 [facility] (Rec: 02/23/21 09:05 [facility] [id number]) Hip Strength Hip Manual Muscle Testing Right Flexion (L2) 3+ Fair+ Extension (S1) 4- Good- Abduction 4- Good- Adduction 4+ Good+ External Rotation 4 Good Internal Rotation 3+ Fair+ Left Flexion (L2) 3+ Fair+ Extension (S1) 4- Good- Abduction 4+ Good+ Adduction 4+ Good+ External Rotation 4+ Good+ Internal Rotation 4- Good- Knee Strength Knee Manual Muscle Testing Right Flexion (S2) 4+ Good+ Extension (L3) 4- Good- Left Flexion (S2) 4+ Good+ Extension (L3) 4 Good Ankle/Foot Strength Ankle and Foot Manual Muscle Testing Right Dorsiflexion (L4) 5 Normal Plantarflexion (S1) 5 Normal Left Dorsiflexion (L4) 5 Normal Plantarflexion (S1) 5 Normal Comments 20 heel raises B PT-OP-Q Treatments Start: 02/22/21 16:25 Freq: Status: Active Protocol: Document 03/21/21 07:28 [facility] (Rec: 03/21/21 08:15 [facility] [id number]) Cardio Equipment Bicycle (Upright) Duration (Minutes) 6 Resistance 8-10 Seat Position 5 Therapeutic Exercises Supine Exercises bridge Supine Exercise Name arms off mat Side bilateral Reps/Minutes 5 sec x10 SLR Supine Exercise Name focus on core Side bilateral Reps/Minutes 15 Standing Exercises TKE Standing Exercise Name staggered stance position Side right Equipment Used lvl 3 Reps/Minutes 20 squat Standing Exercise Name mini over chair Side bilateral Reps/Minutes 2x12 Comments cues for buttocks back Manual Therapy Treatment Soft Tissue Mobilization thigh Body Location quad Mobilization Type Rolling,Strumming,Sustained Pressure Comments w/quad set in supine and c/r stretch to quad in prone Joint Mobilizations sacrum Joint MILVIA and caudal w/R hip IR/ER hip Joint R Direction on axis IR & ER FM Comments w/manual resistance at end range to faciliate. Patellofemoral Direction sup, inf Comments w/quad set PT-OP-T Assessment and Plan Start: 02/22/21 16:25 Freq: Status: Active Protocol: Document 03/21/21 07:28 [facility] (Rec: 03/21/21 08:15 [facility] [id number]) Physical Therapy Assessment Goals ROM Short Term Goal (STG) Pt will have full R knee ext w /o inc pain to improve gait mechanics STG Duration 10/30/21 strength Short Term Goal (STG) Pt will be indep w/HEP STG Duration 03/25 Nursing Home Goal (LTG) Pt will have 5/5 LE MMT in all planes and at least 3/5 LPM in all planes without pain in order to show improved stabiltiy and strength to allow pt to do more w/o resulting pain. LTG Duration 04/25/21 stairs Nursing Home Goal (LTG) pt will be able to descend stairs w/o any pain in R knee. LTG Duration 04/25/21 walking Nursing Home Goal (LTG) Pt will be able to walk [place] without pain showing he can go up/down hills and walk for distance w/o inc pain LTG Duration 04/25/21 Assessment Summary Assessment Pt did better with squats today and with cueing, he was able to increase his range w/ the squats. He liekly has some tension along R sciatic n pathway based on his c/o pain down post thigh and calf w/ driving and thigh pain being his general area of pain. He did have improved hip rot after manual treatment and improve knee ext Physical Therapy Plan Frequency and Duration Frequency of Treatment 2x/Week Duration of Treatment 2 months Plan of Care Start Date 02/23/21 Plan of Care End Date 04/25/21 Next Visit Focus/Plan Next Note Type Treatment Note Next Visit Plan cont to advance hip stability & core strength & work on manual to improve ROM and dec pain, work on hip motion
--- NOTE | 2021-03-23 08:15 | PT.OTN ---
Current Diagnoses Unilateral primary osteoarthritis, right knee (03/23/21) Pain in right hip (03/23/21) Difficulty in walking, not elsewhere classified (03/23/21) Weakness (03/23/21) Physical Therapy Treatment Note PT-OP-A Visit Information Start: 02/22/21 16:25 Freq: Status: Active Protocol: Document 03/23/21 07:29 [facility] (Rec: 03/23/21 08:14 [facility] [id number]) Out-Patient Physical Therapy Visit Information Visit Information Visit Type Treatment Note Visit Note 10/10 Visit Start Time 07:30 Visit Stop Time 08:11 Total Visit Minutes 41 Visit Number 5 Number of SAND MILL GRINDER Visits 0 PT-OP-B Current Condition Start: 02/22/21 16:25 Freq: Status: Active Protocol: Document 02/23/21 07:42 [facility] (Rec: 02/23/21 09:05 [facility] [id number]) Current Condition History of Current Condition Onset Date 4-5 years ago Current Complaints R knee pain and leg pain History of Current Condition Pt reports knee pain that started 4-5 years ago and he saw a local ortho who decided the best thing would not to do surgery (he has some meniscal tears and ligament tears per pt). He walks dog 2-3 miles most day and when he gets back , he has a knot in his quad and/or knot in HS and/or calf and goodman splint feeling and occ pain at lat ant knee. When he lifts up his leg, he gets some discomfrot around sup knee. Never any issues in LLE. Last MRI was 4 years ago. Pt reports he occ does stationary bike and feels his leg muscles working w/that. 4-5 years ago when it started it was more his knee would bother him a little but a couple years ago, it did change to the almost cramping feeling. He does do general stretches daily. Pt reports pain has been getting more consistant recently. Notes now he gets the pain most days. Pt reports LBP at belt line. He gets tightness almost like its going to cramp up and stops and slows down and puts on theraworks and a balm that has MSM & menthol. its not everyday or all the time. THere is a tenderness behind his knee and old MRI showed bakers cyst. Pt reprots he avoids squattin because he wants to avoid hurting his knee. He can kneel on his kneel and that almost never hurts. He also is very careful about twisting knee. Pt reports he thinks he has bursitis of R hip becaue he notices pain in lat hip he has pain in lat hips. He occ notices it for a little bit when walking. Prior Treatments and Tests MRI in past Treatment Goals Patient/Caregiver Goals Hoping PT will kick start him into a regular exercise routine, not just walking, wants to maintain strength in his legs to be able to easily get up/down and stairs without discomfort and be able to walk [place] park w/o pain, put off knee surgery PT-OP-C Subjective Start: 02/22/21 16:25 Freq: Status: Active Protocol: Document 03/23/21 07:29 [facility] (Rec: 03/23/21 08:14 [facility] [id number]) OP-PT Subjective Patient Comments Patient Comments Pt reports some sorenss in post knee after last session but it went away that day PT-OP-D Balance Start: 02/22/21 16:25 Freq: Status: Active Protocol: Document 02/23/21 07:42 [facility] (Rec: 02/23/21 09:05 [facility] [id number]) Balance Tests Single Limb Standing Single Limb- Right >30 sec w/lat shear fo pelvis & UE use Single Limb- Left >30 sec w/lat shear fo pelvis & UE use PT-OP-F Manual Assessment Start: 02/22/21 16:25 Freq: Status: Active Protocol: Document 02/23/21 07:42 [facility] (Rec: 02/23/21 09:05 [facility] [id number]) Manual Assessments Soft Tissue Assessment Soft Tissue Mobility Assessment tenderness:HS, quads, ITB, calf, lat jt line PT-OP-G Mobility & Gait Start: 02/22/21 16:25 Freq: Status: Active Protocol: Document 02/23/21 07:42 [facility] (Rec: 02/23/21 09:05 [facility] [id number]) OP Gait Assessment Comments Gait Comments Dec pelvis motion, dec RUE motion, dec push off B, dec stance time slightly RLE Stair Climbing Evaluation Comments Stair Climbing Comments turns R foot out on decent - pain slight in R knee w/ descend, does reciprocal up/ down PT-OP-J Posture/Palpation/Skin Start: 02/22/21 16:25 Freq: Status: Active Protocol: Document 02/23/21 07:42 [facility] (Rec: 02/23/21 09:05 [facility] [id number]) Posture Evaluation [facility] Postural Classification System Lumbar Protective Mechanism Left AP 0 Lumbar Protective Mechanism Right AP 1 Lumbar Protective Mechanism Left PA 2 Lumbar Protective Mechanism Right PA 0 Comments Posture Comments pronation B feet, slight SB R w/slight L pelivc shear, inc of kyphosis; tibias neutral in standing and w/mini squat, B femers in IR ins tanding and R goes ER w/flex & L IR PT-OP-K Range of Motion Start: 02/22/21 16:25 Freq: Status: Active Protocol: Document 02/23/21 07:42 [facility] (Rec: 02/23/21 09:05 [facility] [id number]) Knee Goniometric Range of Motion Knee Right Flexion Active (degrees) 127 Extension Active (degrees) 3 Comments discomfort slight w/ext Left Flexion Active (degrees) 140 Extension Active (degrees) 0 PT-OP-L Special Tests Start: 02/22/21 16:25 Freq: Status: Active Protocol: Document 02/23/21 07:42 [facility] (Rec: 02/23/21 09:05 [facility] [id number]) Special Tests Knee Special Tests Apley's Compression Test Results neg Newman Chondromalacia Test Results positive-improves w/med glide Alexus Test Test Results neg Varus- 25 Degrees Test Results slight laxity Valgus- 25 Degrees Test Results neg Shena's Test Test Results positive for R ITB tightness Hines's Compression Test Results neg Clara's Test Results slight laxity Thessaly Test 5 Degrees Test Results neg Roel Test Results quad and RF tightness B Posterior Draw Test Results neg Slump Comments slump and ext sit neg B SLR Test Results 70 deg R, 80 deg L HS tightness PT-OP-M Strength Start: 02/22/21 16:25 Freq: Status: Active Protocol: Document 02/23/21 07:42 [facility] (Rec: 02/23/21 09:05 [facility] [id number]) Hip Strength Hip Manual Muscle Testing Right Flexion (L2) 3+ Fair+ Extension (S1) 4- Good- Abduction 4- Good- Adduction 4+ Good+ External Rotation 4 Good Internal Rotation 3+ Fair+ Left Flexion (L2) 3+ Fair+ Extension (S1) 4- Good- Abduction 4+ Good+ Adduction 4+ Good+ External Rotation 4+ Good+ Internal Rotation 4- Good- Knee Strength Knee Manual Muscle Testing Right Flexion (S2) 4+ Good+ Extension (L3) 4- Good- Left Flexion (S2) 4+ Good+ Extension (L3) 4 Good Ankle/Foot Strength Ankle and Foot Manual Muscle Testing Right Dorsiflexion (L4) 5 Normal Plantarflexion (S1) 5 Normal Left Dorsiflexion (L4) 5 Normal Plantarflexion (S1) 5 Normal Comments 20 heel raises B PT-OP-Q Treatments Start: 02/22/21 16:25 Freq: Status: Active Protocol: Document 03/23/21 07:29 [facility] (Rec: 03/23/21 08:14 [facility] [id number]) Cardio Equipment Bicycle (Upright) Duration (Minutes) 5 Resistance 8-10 Seat Position 6 Gym Equipment Therapeutic Ball supine Ball Size/Color 55cm Body Position Supine Reps/Duration 12 ea Comments 1. bridge w/2 sec hold 2. bridge w/HS curl Therapeutic Exercises Prone Exercises hip ext Prone Exercise Name alt Side bilateral Reps/Minutes 15 Sidelying Exercises clamshell Side bilateral Equipment Used L1 Reps/Minutes 15 Standing Exercises lunge Side bilateral Reps/Minutes [address] TKE Standing Exercise Name staggered stance position Side right Equipment Used lvl 3 Reps/Minutes 20 squat Standing Exercise Name full Side bilateral Reps/Minutes 15 Manual Therapy Treatment Soft Tissue Mobilization calf Body Location r Mobilization Type Rolling,Strumming Intensity/Depth Moderate PT-OP-T Assessment and Plan Start: 02/22/21 16:25 Freq: Status: Active Protocol: Document 03/23/21 07:29 [facility] (Rec: 03/23/21 08:14 [facility] [id number]) Physical Therapy Assessment Goals ROM Short Term Goal (STG) Pt will have full R knee ext w /o inc pain to improve gait mechanics STG Duration 04/01/21 strength Short Term Goal (STG) Pt will be indep w/HEP STG Duration 03/25 Halfway Goal (LTG) Pt will have 5/5 LE MMT in all planes and at least 3/5 LPM in all planes without pain in order to show improved stabiltiy and strength to allow pt to do more w/o resulting pain. LTG Duration 04/25/21 stairs Livestock Producer Goal (LTG) pt will be able to descend stairs w/o any pain in R knee. LTG Duration 04/25/21 walking Halfway Goal (LTG) Pt will be able to walk [place] park without pain showing he can go up/down hills and walk for distance w/o inc pain LTG Duration 04/25/21 Assessment Summary Assessment Pt did well with new exercises w/only noting mm working but no c/o pain. He cont to improve w/squat form and is showing improved depth w/squat . Improved quad set w/o pain in knee and w/full range after manual to calf. Physical Therapy Plan Frequency and Duration Frequency of Treatment 2x/Week Duration of Treatment 2 months Plan of Care Start Date 02/23/21 Plan of Care End Date 04/25/21 Next Visit Focus/Plan Next Note Type Treatment Note Next Visit Plan cont to advance hip stability & core strength & work on manual to improve ROM and dec pain, work on hip motion
--- NOTE | 2021-03-28 08:13 | PT.OTN ---
Current Diagnoses Unilateral primary osteoarthritis, right knee (03/28/21) Pain in right hip (03/28/21) Difficulty in walking, not elsewhere classified (03/28/21) Weakness (03/28/21) Physical Therapy Treatment Note PT-OP-A Visit Information Start: 02/22/21 16:25 Freq: Status: Active Protocol: Document 03/28/21 07:28 [facility] (Rec: 03/28/21 08:13 [facility] [id number]) Out-Patient Physical Therapy Visit Information Visit Information Visit Type Treatment Note Visit Note 11/10 Visit Start Time 07:30 Visit Stop Time 08:10 Total Visit Minutes 40 Visit Number 6 Number of JET PIERCER OPERATOR Visits 0 PT-OP-B Current Condition Start: 02/22/21 16:25 Freq: Status: Active Protocol: Document 02/23/21 07:42 [facility] (Rec: 02/23/21 09:05 [facility] [id number]) Current Condition History of Current Condition Onset Date 4-5 years ago Current Complaints R knee pain and leg pain History of Current Condition Pt reports knee pain that started 4-5 years ago and he saw a local ortho who decided the best thing would not to do surgery (he has some meniscal tears and ligament tears per pt). He walks dog 2-3 miles most day and when he gets back , he has a knot in his quad and/or knot in HS and/or calf and goodman splint feeling and occ pain at lat ant knee. When he lifts up his leg, he gets some discomfrot around sup knee. Never any issues in LLE. Last MRI was 4 years ago. Pt reports he occ does stationary bike and feels his leg muscles working w/that. 4-5 years ago when it started it was more his knee would bother him a little but a couple years ago, it did change to the almost cramping feeling. He does do general stretches daily. Pt reports pain has been getting more consistant recently. Notes now he gets the pain most days. Pt reports LBP at belt line. He gets tightness almost like its going to cramp up and stops and slows down and puts on theraworks and a balm that has MSM & menthol. its not everyday or all the time. THere is a tenderness behind his knee and old MRI showed bakers cyst. Pt reprots he avoids squattin because he wants to avoid hurting his knee. He can kneel on his kneel and that almost never hurts. He also is very careful about twisting knee. Pt reports he thinks he has bursitis of R hip becaue he notices pain in lat hip he has pain in lat hips. He occ notices it for a little bit when walking. Prior Treatments and Tests MRI in past Treatment Goals Patient/Caregiver Goals Hoping PT will kick start him into a regular exercise routine, not just walking, wants to maintain strength in his legs to be able to easily get up/down and stairs without discomfort and be able to walk [place] park w/o pain, put off knee surgery PT-OP-C Subjective Start: 02/22/21 16:25 Freq: Status: Active Protocol: Document 03/28/21 07:28 [facility] (Rec: 03/28/21 08:13 [facility] [id number]) OP-PT Subjective Patient Comments Patient Comments Pt reports he wants PT to look at his squat and lunges because he is not positive he is doing them correctly. Pt reports about every 3rd walk, he feels a pressure/fullness behind his knee. PT-OP-D Balance Start: 02/22/21 16:25 Freq: Status: Active Protocol: Document 02/23/21 07:42 [facility] (Rec: 02/23/21 09:05 [facility] [id number]) Balance Tests Single Limb Standing Single Limb- Right >30 sec w/lat shear fo pelvis & UE use Single Limb- Left >30 sec w/lat shear fo pelvis & UE use PT-OP-F Manual Assessment Start: 02/22/21 16:25 Freq: Status: Active Protocol: Document 02/23/21 07:42 [facility] (Rec: 02/23/21 09:05 [facility] [id number]) Manual Assessments Soft Tissue Assessment Soft Tissue Mobility Assessment tenderness:HS, quads, ITB, calf, lat jt line PT-OP-G Mobility & Gait Start: 02/22/21 16:25 Freq: Status: Active Protocol: Document 02/23/21 07:42 [facility] (Rec: 02/23/21 09:05 [facility] [id number]) OP Gait Assessment Comments Gait Comments Dec pelvis motion, dec RUE motion, dec push off B, dec stance time slightly RLE Stair Climbing Evaluation Comments Stair Climbing Comments turns R foot out on decent - pain slight in R knee w/ descend, does reciprocal up/ down PT-OP-J Posture/Palpation/Skin Start: 02/22/21 16:25 Freq: Status: Active Protocol: Document 02/23/21 07:42 [facility] (Rec: 02/23/21 09:05 [facility] [id number]) Posture Evaluation [facility] Postural Classification System Lumbar Protective Mechanism Left AP 0 Lumbar Protective Mechanism Right AP 1 Lumbar Protective Mechanism Left PA 2 Lumbar Protective Mechanism Right PA 0 Comments Posture Comments pronation B feet, slight SB R w/slight L pelivc shear, inc of kyphosis; tibias neutral in standing and w/mini squat, B femers in IR ins tanding and R goes ER w/flex & L IR PT-OP-K Range of Motion Start: 02/22/21 16:25 Freq: Status: Active Protocol: Document 02/23/21 07:42 [facility] (Rec: 02/23/21 09:05 [facility] [id number]) Knee Goniometric Range of Motion Knee Right Flexion Active (degrees) 127 Extension Active (degrees) 3 Comments discomfort slight w/ext Left Flexion Active (degrees) 140 Extension Active (degrees) 0 PT-OP-L Special Tests Start: 02/22/21 16:25 Freq: Status: Active Protocol: Document 02/23/21 07:42 [facility] (Rec: 02/23/21 09:05 [facility] [id number]) Special Tests Knee Special Tests Apley's Compression Test Results neg Newman Chondromalacia Test Results positive-improves w/med glide Alexus Test Test Results neg Varus- 25 Degrees Test Results slight laxity Valgus- 25 Degrees Test Results neg Shena's Test Test Results positive for R ITB tightness Hines's Compression Test Results neg Clara's Test Results slight laxity Thessaly Test 5 Degrees Test Results neg Roel Test Results quad and RF tightness B Posterior Draw Test Results neg Slump Comments slump and ext sit neg B SLR Test Results 70 deg R, 80 deg L HS tightness PT-OP-M Strength Start: 02/22/21 16:25 Freq: Status: Active Protocol: Document 02/23/21 07:42 [facility] (Rec: 02/23/21 09:05 [facility] [id number]) Hip Strength Hip Manual Muscle Testing Right Flexion (L2) 3+ Fair+ Extension (S1) 4- Good- Abduction 4- Good- Adduction 4+ Good+ External Rotation 4 Good Internal Rotation 3+ Fair+ Left Flexion (L2) 3+ Fair+ Extension (S1) 4- Good- Abduction 4+ Good+ Adduction 4+ Good+ External Rotation 4+ Good+ Internal Rotation 4- Good- Knee Strength Knee Manual Muscle Testing Right Flexion (S2) 4+ Good+ Extension (L3) 4- Good- Left Flexion (S2) 4+ Good+ Extension (L3) 4 Good Ankle/Foot Strength Ankle and Foot Manual Muscle Testing Right Dorsiflexion (L4) 5 Normal Plantarflexion (S1) 5 Normal Left Dorsiflexion (L4) 5 Normal Plantarflexion (S1) 5 Normal Comments 20 heel raises B PT-OP-Q Treatments Start: 02/22/21 16:25 Freq: Status: Active Protocol: Document 03/28/21 07:28 [facility] (Rec: 03/28/21 08:13 [facility] [id number]) Cardio Equipment Bicycle (Upright) Duration (Minutes) 5 Resistance 10 Seat Position 6 Gym Equipment Shuttle Balance red clips Comments fwd & side: WBOS fwd: NBOS & staggered stance B Therapeutic Ball supine Ball Size/Color 55cm Body Position Supine Reps/Duration 12 ea Comments 1. bridge w/5 sec hold 2. bridge w/HS curl Therapeutic Exercises Sidelying Exercises clamshell Side bilateral Equipment Used L1 Reps/Minutes 15 Standing Exercises hip hike Side bilateral Reps/Minutes 12 lunge Side bilateral Reps/Minutes [address] squat Standing Exercise Name full over chair Side bilateral Reps/Minutes 15 Manual Therapy Treatment Soft Tissue Mobilization HS Body Location btwn HS mm w/knee ext or IR/ER of LE Mobilization Type Rolling,Sustained Pressure Intensity/Depth Moderate Neuro Re-Education Treatment Balance Activities SLS Details in mirror w/o lat shear of hip PT-OP-T Assessment and Plan Start: 02/22/21 16:25 Freq: Status: Active Protocol: Document 03/28/21 07:28 [facility] (Rec: 03/28/21 08:13 [facility] [id number]) Physical Therapy Assessment Goals ROM Short Term Goal (STG) Pt will have full R knee ext w /o inc pain to improve gait mechanics STG Duration 04/01/21 strength Short Term Goal (STG) Pt will be indep w/HEP STG Duration 03/25 Penitentiary Goal (LTG) Pt will have 5/5 LE MMT in all planes and at least 3/5 LPM in all planes without pain in order to show improved stabiltiy and strength to allow pt to do more w/o resulting pain. LTG Duration 04/25/21 stairs Certified Nurses' Aide Goal (LTG) pt will be able to descend stairs w/o any pain in R knee. LTG Duration 04/25/21 walking Penitentiary Goal (LTG) Pt will be able to walk [place] park without pain showing he can go up/down hills and walk for distance w/o inc pain LTG Duration 04/25/21 Assessment Summary Assessment Pt had imrpoved knee ext upon starting manual today as compared to other days. He did well with lunges and squats with very little cues needed. He was challenged by balance exercises initiated today. Physical Therapy Plan Frequency and Duration Frequency of Treatment 2x/Week Duration of Treatment 2 months Plan of Care Start Date 02/23/21 Plan of Care End Date 04/25/21 Next Visit Focus/Plan Next Note Type Treatment Note Next Visit Plan cont to advance hip stability & core strength & work on manual to improve ROM and dec pain, work on hip motion
--- NOTE | 2021-04-04 08:18 | PT.OTN ---
Current Diagnoses Unilateral primary osteoarthritis, right knee (04/04/21) Pain in right hip (04/04/21) Difficulty in walking, not elsewhere classified (04/04/21) Weakness (04/04/21) Physical Therapy Treatment Note PT-OP-A Visit Information Start: 02/22/21 16:25 Freq: Status: Active Protocol: Document 04/04/21 07:29 [facility] (Rec: 04/04/21 08:17 [facility] [id number]) Out-Patient Physical Therapy Visit Information Visit Information Visit Type Progress Note Visit Note 06/12 Visit Start Time 07:31 Visit Stop Time 08:12 Total Visit Minutes 41 Visit Number 7 Number of ORDER DETAILER Visits 0 PT-OP-B Current Condition Start: 02/22/21 16:25 Freq: Status: Active Protocol: Document 02/23/21 07:42 [facility] (Rec: 02/23/21 09:05 [facility] [id number]) Current Condition History of Current Condition Onset Date 4-5 years ago Current Complaints R knee pain and leg pain History of Current Condition Pt reports knee pain that started 4-5 years ago and he saw a local ortho who decided the best thing would not to do surgery (he has some meniscal tears and ligament tears per pt). He walks dog 2-3 miles most day and when he gets back , he has a knot in his quad and/or knot in HS and/or calf and goodman splint feeling and occ pain at lat ant knee. When he lifts up his leg, he gets some discomfrot around sup knee. Never any issues in LLE. Last MRI was 4 years ago. Pt reports he occ does stationary bike and feels his leg muscles working w/that. 4-5 years ago when it started it was more his knee would bother him a little but a couple years ago, it did change to the almost cramping feeling. He does do general stretches daily. Pt reports pain has been getting more consistant recently. Notes now he gets the pain most days. Pt reports LBP at belt line. He gets tightness almost like its going to cramp up and stops and slows down and puts on theraworks and a balm that has MSM & menthol. its not everyday or all the time. THere is a tenderness behind his knee and old MRI showed bakers cyst. Pt reprots he avoids squattin because he wants to avoid hurting his knee. He can kneel on his kneel and that almost never hurts. He also is very careful about twisting knee. Pt reports he thinks he has bursitis of R hip becaue he notices pain in lat hip he has pain in lat hips. He occ notices it for a little bit when walking. Prior Treatments and Tests MRI in past Treatment Goals Patient/Caregiver Goals Hoping PT will kick start him into a regular exercise routine, not just walking, wants to maintain strength in his legs to be able to easily get up/down and stairs without discomfort and be able to walk [place] park w/o pain, put off knee surgery PT-OP-C Subjective Start: 02/22/21 16:25 Freq: Status: Active Protocol: Document 04/04/21 07:29 [facility] (Rec: 04/04/21 08:17 [facility] [id number]) OP-PT Subjective Patient Comments Patient Comments Pt reports he isn't getting cramping in his calf or HS but he is noticing still sometimes in ant goodman and med ankle. Notes he can't really track a pattern with this. SOmetimes laying in bed, it feels like his leg is throbbing. PT-OP-D Balance Start: 02/22/21 16:25 Freq: Status: Active Protocol: Document 02/23/21 07:42 [facility] (Rec: 02/23/21 09:05 [facility] [id number]) Balance Tests Single Limb Standing Single Limb- Right >30 sec w/lat shear fo pelvis & UE use Single Limb- Left >30 sec w/lat shear fo pelvis & UE use PT-OP-F Manual Assessment Start: 02/22/21 16:25 Freq: Status: Active Protocol: Document 02/23/21 07:42 [facility] (Rec: 02/23/21 09:05 [facility] [id number]) Manual Assessments Soft Tissue Assessment Soft Tissue Mobility Assessment tenderness:HS, quads, ITB, calf, lat jt line PT-OP-G Mobility & Gait Start: 02/22/21 16:25 Freq: Status: Active Protocol: Document 02/23/21 07:42 [facility] (Rec: 02/23/21 09:05 [facility] [id number]) OP Gait Assessment Comments Gait Comments Dec pelvis motion, dec RUE motion, dec push off B, dec stance time slightly RLE Stair Climbing Evaluation Comments Stair Climbing Comments turns R foot out on decent - pain slight in R knee w/ descend, does reciprocal up/ down PT-OP-J Posture/Palpation/Skin Start: 02/22/21 16:25 Freq: Status: Active Protocol: Document 04/04/21 07:29 [facility] (Rec: 04/04/21 08:17 [facility] [id number]) Posture Evaluation [facility] Postural Classification System Lumbar Protective Mechanism Left AP 2 Lumbar Protective Mechanism Right AP 1 Lumbar Protective Mechanism Left PA 2 Lumbar Protective Mechanism Right PA 1 PT-OP-K Range of Motion Start: 02/22/21 16:25 Freq: Status: Active Protocol: Document 02/23/21 07:42 [facility] (Rec: 02/23/21 09:05 [facility] [id number]) Knee Goniometric Range of Motion Knee Right Flexion Active (degrees) 127 Extension Active (degrees) 3 Comments discomfort slight w/ext Left Flexion Active (degrees) 140 Extension Active (degrees) 0 PT-OP-L Special Tests Start: 02/22/21 16:25 Freq: Status: Active Protocol: Document 02/23/21 07:42 [facility] (Rec: 02/23/21 09:05 [facility] [id number]) Special Tests Knee Special Tests Apley's Compression Test Results neg Newman Chondromalacia Test Results positive-improves w/med glide Alexus Test Test Results neg Varus- 25 Degrees Test Results slight laxity Valgus- 25 Degrees Test Results neg Shena's Test Test Results positive for R ITB tightness Hines's Compression Test Results neg Clara's Test Results slight laxity Thessaly Test 5 Degrees Test Results neg Roel Test Results quad and RF tightness B Posterior Draw Test Results neg Slump Comments slump and ext sit neg B SLR Test Results 70 deg R, 80 deg L HS tightness PT-OP-M Strength Start: 02/22/21 16:25 Freq: Status: Active Protocol: Document 04/04/21 07:29 [facility] (Rec: 04/04/21 08:17 [facility] [id number]) Hip Strength Hip Manual Muscle Testing Right Flexion (L2) 4 Good Extension (S1) 4+ Good+ Abduction 5 Normal Adduction 5 Normal External Rotation 4+ Good+ Internal Rotation 5 Normal Left Flexion (L2) 4 Good Extension (S1) 4+ Good+ Abduction 5 Normal Adduction 5 Normal External Rotation 4+ Good+ Internal Rotation 5 Normal Knee Strength Knee Manual Muscle Testing Right Flexion (S2) 5 Normal Extension (L3) 5 Normal Left Flexion (S2) 5 Normal Extension (L3) 5 Normal Ankle/Foot Strength Ankle and Foot Manual Muscle Testing Right Dorsiflexion (L4) 5 Normal Plantarflexion (S1) 5 Normal Inversion 5 Normal Eversion (S1) 5 Normal Left Dorsiflexion (L4) 5 Normal Plantarflexion (S1) 5 Normal Inversion 5 Normal Eversion (S1) 5 Normal Comments 20 heel raises B PT-OP-Q Treatments Start: 02/22/21 16:25 Freq: Status: Active Protocol: Document 04/04/21 07:29 [facility] (Rec: 04/04/21 08:17 [facility] [id number]) Cardio Equipment Bicycle (Upright) Duration (Minutes) 5 Resistance 10 Seat Position 6 Therapeutic Exercises Standing Exercises lunge Standing Exercise Name cues for RLE when fwd Side bilateral Reps/Minutes [address] Standing Exercise Name full over chair Side bilateral Reps/Minutes 12 Comments focus on R foot position Gait Training Gait Activity stairs Comments 1. up/down 6 in stairs reciprocally w/o rail w/focus on knee tracking fwd 2. up/down 4 in step then 5 in step in mirror focus on knee tracking fwd Manual Therapy Treatment Soft Tissue Mobilization goodman Body Location circumfrential w/IR/ER and APs Mobilization Type Myofascial Release Intensity/Depth Superficial Joint Mobilizations ankle Comments 1. calcaneus distraction 2. talus AP & distraction FM PT-OP-T Assessment and Plan Start: 02/22/21 16:25 Freq: Status: Active Protocol: Document 04/04/21 07:29 [facility] (Rec: 04/04/21 08:17 [facility] [id number]) Physical Therapy Assessment Goals ROM Short Term Goal (STG) Pt will have full R knee ext w /o inc pain to improve gait mechanics 04/04-still some discomfort STG Duration 04/01/21 strength Short Term Goal (STG) Pt will be indep w/HEP STG Duration achieved progressing as able Belt Lacer Goal (LTG) Pt will have 5/5 LE MMT in all planes and at least 3/5 LPM in all planes without pain in order to show improved stabiltiy and strength to allow pt to do more w/o resulting pain. 04/04-improved LTG Duration 04/25/21 stairs Belt Lacer Goal (LTG) pt will be able to descend stairs w/o any pain in R knee. 04/04-no pain in knee some discomfort in R goodman LTG Duration 04/25/21 walking Belt Lacer Goal (LTG) Pt will be able to walk [place] park without pain showing he can go up/down hills and walk for distance w/o inc pain 04/04-notes still occc goodman pain LTG Duration 04/25/21 Assessment Summary Assessment Pt improved with ability to do stairs w/dec goodman pain when working on foot tracking position. He is making excellent progress w/pain, strength and functional ability. Physical Therapy Plan Frequency and Duration Frequency of Treatment 2x/Week Duration of Treatment 2 months Plan of Care Start Date 02/23/21 Plan of Care End Date 04/25/21 Next Visit Focus/Plan Next Note Type Treatment Note Next Visit Plan cont tow ork on stair mechanics & work on core stbility and ability to ext knee
--- NOTE | 2021-04-11 11:03 | PT.OTN ---
Current Diagnoses Unilateral primary osteoarthritis, right knee (04/11/21) Pain in right hip (04/11/21) Difficulty in walking, not elsewhere classified (04/11/21) Weakness (04/11/21) Physical Therapy Treatment Note PT-OP-A Visit Information Start: 02/22/21 16:25 Freq: Status: Active Protocol: Document 04/11/21 07:31 [facility] (Rec: 04/11/21 11:03 [facility] [id number]) Out-Patient Physical Therapy Visit Information Visit Information Visit Type Treatment Note Visit Note 07/13 Visit Start Time 07:32 Visit Stop Time 08:15 Total Visit Minutes 43 Visit Number 8 Number of BODY TECHNICIAN/PAINTER Visits 0 PT-OP-B Current Condition Start: 02/22/21 16:25 Freq: Status: Active Protocol: Document 02/23/21 07:42 [facility] (Rec: 02/23/21 09:05 [facility] [id number]) Current Condition History of Current Condition Onset Date 4-5 years ago Current Complaints R knee pain and leg pain History of Current Condition Pt reports knee pain that started 4-5 years ago and he saw a local ortho who decided the best thing would not to do surgery (he has some meniscal tears and ligament tears per pt). He walks dog 2-3 miles most day and when he gets back , he has a knot in his quad and/or knot in HS and/or calf and goodman splint feeling and occ pain at lat ant knee. When he lifts up his leg, he gets some discomfrot around sup knee. Never any issues in LLE. Last MRI was 4 years ago. Pt reports he occ does stationary bike and feels his leg muscles working w/that. 4-5 years ago when it started it was more his knee would bother him a little but a couple years ago, it did change to the almost cramping feeling. He does do general stretches daily. Pt reports pain has been getting more consistant recently. Notes now he gets the pain most days. Pt reports LBP at belt line. He gets tightness almost like its going to cramp up and stops and slows down and puts on theraworks and a balm that has MSM & menthol. its not everyday or all the time. THere is a tenderness behind his knee and old MRI showed bakers cyst. Pt reprots he avoids squattin because he wants to avoid hurting his knee. He can kneel on his kneel and that almost never hurts. He also is very careful about twisting knee. Pt reports he thinks he has bursitis of R hip becaue he notices pain in lat hip he has pain in lat hips. He occ notices it for a little bit when walking. Prior Treatments and Tests MRI in past Treatment Goals Patient/Caregiver Goals Hoping PT will kick start him into a regular exercise routine, not just walking, wants to maintain strength in his legs to be able to easily get up/down and stairs without discomfort and be able to walk [place] park w/o pain, put off knee surgery PT-OP-C Subjective Start: 02/22/21 16:25 Freq: Status: Active Protocol: Document 04/11/21 07:31 [facility] (Rec: 04/11/21 11:03 [facility] [id number]) OP-PT Subjective Patient Comments Patient Comments No pattern w/ant lat knee pain or post knee pain. Notes his goodman and ankle have felt fine since last time PT-OP-D Balance Start: 02/22/21 16:25 Freq: Status: Active Protocol: Document 02/23/21 07:42 [facility] (Rec: 02/23/21 09:05 [facility] [id number]) Balance Tests Single Limb Standing Single Limb- Right >30 sec w/lat shear fo pelvis & UE use Single Limb- Left >30 sec w/lat shear fo pelvis & UE use PT-OP-F Manual Assessment Start: 02/22/21 16:25 Freq: Status: Active Protocol: Document 02/23/21 07:42 [facility] (Rec: 02/23/21 09:05 [facility] [id number]) Manual Assessments Soft Tissue Assessment Soft Tissue Mobility Assessment tenderness:HS, quads, ITB, calf, lat jt line PT-OP-G Mobility & Gait Start: 02/22/21 16:25 Freq: Status: Active Protocol: Document 02/23/21 07:42 [facility] (Rec: 02/23/21 09:05 [facility] [id number]) OP Gait Assessment Comments Gait Comments Dec pelvis motion, dec RUE motion, dec push off B, dec stance time slightly RLE Stair Climbing Evaluation Comments Stair Climbing Comments turns R foot out on decent - pain slight in R knee w/ descend, does reciprocal up/ down PT-OP-J Posture/Palpation/Skin Start: 02/22/21 16:25 Freq: Status: Active Protocol: Document 04/04/21 07:29 [facility] (Rec: 04/04/21 08:17 [facility] [id number]) Posture Evaluation [facility] Postural Classification System Lumbar Protective Mechanism Left AP 2 Lumbar Protective Mechanism Right AP 1 Lumbar Protective Mechanism Left PA 2 Lumbar Protective Mechanism Right PA 1 PT-OP-K Range of Motion Start: 02/22/21 16:25 Freq: Status: Active Protocol: Document 02/23/21 07:42 [facility] (Rec: 02/23/21 09:05 [facility] [id number]) Knee Goniometric Range of Motion Knee Right Flexion Active (degrees) 127 Extension Active (degrees) 3 Comments discomfort slight w/ext Left Flexion Active (degrees) 140 Extension Active (degrees) 0 PT-OP-L Special Tests Start: 02/22/21 16:25 Freq: Status: Active Protocol: Document 02/23/21 07:42 [facility] (Rec: 02/23/21 09:05 [facility] [id number]) Special Tests Knee Special Tests Apley's Compression Test Results neg Newman Chondromalacia Test Results positive-improves w/med glide Alexus Test Test Results neg Varus- 25 Degrees Test Results slight laxity Valgus- 25 Degrees Test Results neg Shena's Test Test Results positive for R ITB tightness Hines's Compression Test Results neg Clara's Test Results slight laxity Thessaly Test 5 Degrees Test Results neg Roel Test Results quad and RF tightness B Posterior Draw Test Results neg Slump Comments slump and ext sit neg B SLR Test Results 70 deg R, 80 deg L HS tightness PT-OP-M Strength Start: 02/22/21 16:25 Freq: Status: Active Protocol: Document 04/04/21 07:29 [facility] (Rec: 04/04/21 08:17 [facility] [id number]) Hip Strength Hip Manual Muscle Testing Right Flexion (L2) 4 Good Extension (S1) 4+ Good+ Abduction 5 Normal Adduction 5 Normal External Rotation 4+ Good+ Internal Rotation 5 Normal Left Flexion (L2) 4 Good Extension (S1) 4+ Good+ Abduction 5 Normal Adduction 5 Normal External Rotation 4+ Good+ Internal Rotation 5 Normal Knee Strength Knee Manual Muscle Testing Right Flexion (S2) 5 Normal Extension (L3) 5 Normal Left Flexion (S2) 5 Normal Extension (L3) 5 Normal Ankle/Foot Strength Ankle and Foot Manual Muscle Testing Right Dorsiflexion (L4) 5 Normal Plantarflexion (S1) 5 Normal Inversion 5 Normal Eversion (S1) 5 Normal Left Dorsiflexion (L4) 5 Normal Plantarflexion (S1) 5 Normal Inversion 5 Normal Eversion (S1) 5 Normal Comments 20 heel raises B PT-OP-Q Treatments Start: 02/22/21 16:25 Freq: Status: Active Protocol: Document 04/11/21 07:31 [facility] (Rec: 04/11/21 11:03 [facility] [id number]) Cardio Equipment Bicycle (Upright) Duration (Minutes) 5 Resistance 10 Seat Position 6 Therapeutic Exercises Supine Exercises stretches Supine Exercise Name 1. figure 4 2. piriformis cross body Side bilateral Reps/Minutes 30 sec Sitting Exercises tennis ball Sitting Exercise Name roll out to glutes and HS Side bilateral Comments w/ knee ext Standing Exercises steps Standing Exercise Name up and down 5 in step in mirror Side bilateral Reps/Minutes 10 Comments focus on R foot positon lunge Standing Exercise Name cues for RLE when fwd Side bilateral Reps/Minutes 1x[address], pt reports gout in L big toe is uncomfortable squat Standing Exercise Name full over chair Side bilateral Reps/Minutes 1x10 Comments focus on R foot position and R knee tracking Manual Therapy Treatment Soft Tissue Mobilization knee Body Location R lat patellar tendon Mobilization Type Strumming Joint Mobilizations sacrum Joint MILVIA and caudal w/R hip IR/ER hip Joint R Direction on axis ER FM Comments w/manual resistance at end range to faciliate. PT-OP-T Assessment and Plan Start: 02/22/21 16:25 Freq: Status: Active Protocol: Document 04/11/21 07:31 [facility] (Rec: 04/11/21 11:03 [facility] [id number]) Physical Therapy Assessment Goals ROM Short Term Goal (STG) Pt will have full R knee ext w /o inc pain to improve gait mechanics 04/04-still some discomfort STG Duration 04/01/21 strength Short Term Goal (STG) Pt will be indep w/HEP STG Duration achieved progressing as able Freight Car Loader Goal (LTG) Pt will have 5/5 LE MMT in all planes and at least 3/5 LPM in all planes without pain in order to show improved stabiltiy and strength to allow pt to do more w/o resulting pain. 04/04-improved LTG Duration 04/25/21 stairs Skilled Nursing Goal (LTG) pt will be able to descend stairs w/o any pain in R knee. 04/04-no pain in knee some discomfort in R goodman LTG Duration 04/25/21 walking Freight Car Loader Goal (LTG) Pt will be able to walk [place] park without pain showing he can go up/down hills and walk for distance w/o inc pain 04/04-notes still occc goodman pain LTG Duration achieved 04/11 Assessment Summary Assessment Pt did well with exercises w/ very little cues for lunge and just some cues w/set up w/ squats for R foot postion. Still requires cues w/steps. He did improve w/ability to IR after manual treatment which should improve knee alignment. Physical Therapy Plan Frequency and Duration Frequency of Treatment 2x/Week Duration of Treatment 2 months Plan of Care Start Date 02/23/21 Plan of Care End Date 04/25/21 Next Visit Focus/Plan Next Note Type Treatment Note Next Visit Plan focus on end range knee ext w/ o pain
--- NOTE | 2021-05-02 09:02 | PT.OTN ---
Current Diagnoses Unilateral primary osteoarthritis, right knee (05/02/21) Pain in right hip (05/02/21) Difficulty in walking, not elsewhere classified (05/02/21) Weakness (05/02/21) Physical Therapy Treatment Note PT-OP-A Visit Information Start: 02/22/21 16:25 Freq: Status: Active Protocol: Document 05/02/21 07:35 [facility] (Rec: 05/02/21 09:01 [facility] [id number]) Out-Patient Physical Therapy Visit Information Visit Information Visit Type Discharge Summary Visit Start Time 07:32 Visit Stop Time 08:12 Total Visit Minutes 40 Visit Number 9 Number of SUPERVISOR SEWER SYSTEM Visits 0 PT-OP-B Current Condition Start: 02/22/21 16:25 Freq: Status: Active Protocol: Document 02/23/21 07:42 [facility] (Rec: 02/23/21 09:05 [facility] [id number]) Current Condition History of Current Condition Onset Date 4-5 years ago Current Complaints R knee pain and leg pain History of Current Condition Pt reports knee pain that started 4-5 years ago and he saw a local ortho who decided the best thing would not to do surgery (he has some meniscal tears and ligament tears per pt). He walks dog 2-3 miles most day and when he gets back , he has a knot in his quad and/or knot in HS and/or calf and goodman splint feeling and occ pain at lat ant knee. When he lifts up his leg, he gets some discomfrot around sup knee. Never any issues in LLE. Last MRI was 4 years ago. Pt reports he occ does stationary bike and feels his leg muscles working w/that. 4-5 years ago when it started it was more his knee would bother him a little but a couple years ago, it did change to the almost cramping feeling. He does do general stretches daily. Pt reports pain has been getting more consistant recently. Notes now he gets the pain most days. Pt reports LBP at belt line. He gets tightness almost like its going to cramp up and stops and slows down and puts on theraworks and a balm that has MSM & menthol. its not everyday or all the time. THere is a tenderness behind his knee and old MRI showed bakers cyst. Pt reprots he avoids squattin because he wants to avoid hurting his knee. He can kneel on his kneel and that almost never hurts. He also is very careful about twisting knee. Pt reports he thinks he has bursitis of R hip becaue he notices pain in lat hip he has pain in lat hips. He occ notices it for a little bit when walking. Prior Treatments and Tests MRI in past Treatment Goals Patient/Caregiver Goals Hoping PT will kick start him into a regular exercise routine, not just walking, wants to maintain strength in his legs to be able to easily get up/down and stairs without discomfort and be able to walk [place] park w/o pain, put off knee surgery PT-OP-C Subjective Start: 02/22/21 16:25 Freq: Status: Active Protocol: Document 05/02/21 07:35 [facility] (Rec: 05/02/21 09:01 [facility] [id number]) OP-PT Subjective Patient Comments Patient Comments Pt reports cramping less often , mostly only occ in calf and able to help it. His hip still bothers him when he lays on it. Reports he has not noticed his knee as much. It is not very often. He has not felt it behind his knee recently. PT-OP-D Balance Start: 02/22/21 16:25 Freq: Status: Active Protocol: Document 02/23/21 07:42 [facility] (Rec: 02/23/21 09:05 [facility] [id number]) Balance Tests Single Limb Standing Single Limb- Right >30 sec w/lat shear fo pelvis & UE use Single Limb- Left >30 sec w/lat shear fo pelvis & UE use PT-OP-F Manual Assessment Start: 02/22/21 16:25 Freq: Status: Active Protocol: Document 02/23/21 07:42 [facility] (Rec: 02/23/21 09:05 [facility] [id number]) Manual Assessments Soft Tissue Assessment Soft Tissue Mobility Assessment tenderness:HS, quads, ITB, calf, lat jt line PT-OP-G Mobility & Gait Start: 02/22/21 16:25 Freq: Status: Active Protocol: Document 02/23/21 07:42 [facility] (Rec: 02/23/21 09:05 [facility] [id number]) OP Gait Assessment Comments Gait Comments Dec pelvis motion, dec RUE motion, dec push off B, dec stance time slightly RLE Stair Climbing Evaluation Comments Stair Climbing Comments turns R foot out on decent - pain slight in R knee w/ descend, does reciprocal up/ down PT-OP-J Posture/Palpation/Skin Start: 02/22/21 16:25 Freq: Status: Active Protocol: Document 04/04/21 07:29 [facility] (Rec: 04/04/21 08:17 [facility] [id number]) Posture Evaluation [facility] Postural Classification System Lumbar Protective Mechanism Left AP 2 Lumbar Protective Mechanism Right AP 1 Lumbar Protective Mechanism Left PA 2 Lumbar Protective Mechanism Right PA 1 PT-OP-K Range of Motion Start: 02/22/21 16:25 Freq: Status: Active Protocol: Document 02/23/21 07:42 [facility] (Rec: 02/23/21 09:05 [facility] [id number]) Knee Goniometric Range of Motion Knee Right Flexion Active (degrees) 127 Extension Active (degrees) 3 Comments discomfort slight w/ext Left Flexion Active (degrees) 140 Extension Active (degrees) 0 PT-OP-L Special Tests Start: 02/22/21 16:25 Freq: Status: Active Protocol: Document 02/23/21 07:42 [facility] (Rec: 02/23/21 09:05 [facility] [id number]) Special Tests Knee Special Tests Apley's Compression Test Results neg Newman Chondromalacia Test Results positive-improves w/med glide Alexus Test Test Results neg Varus- 25 Degrees Test Results slight laxity Valgus- 25 Degrees Test Results neg Shena's Test Test Results positive for R ITB tightness Hines's Compression Test Results neg Clara's Test Results slight laxity Thessaly Test 5 Degrees Test Results neg Roel Test Results quad and RF tightness B Posterior Draw Test Results neg Slump Comments slump and ext sit neg B SLR Test Results 70 deg R, 80 deg L HS tightness PT-OP-M Strength Start: 02/22/21 16:25 Freq: Status: Active Protocol: Document 05/02/21 07:35 [facility] (Rec: 05/02/21 09:01 [facility] [id number]) Hip Strength Hip Manual Muscle Testing Right Flexion (L2) 4 Good Extension (S1) 4+ Good+ Abduction 5 Normal Adduction 5 Normal External Rotation 5 Normal Internal Rotation 5 Normal Left Flexion (L2) 4 Good Extension (S1) 4+ Good+ Abduction 5 Normal Adduction 5 Normal External Rotation 5 Normal Internal Rotation 5 Normal Comments LPM AP 2/5 R, 3/5 L; PA 2/5 B PT-OP-Q Treatments Start: 02/22/21 16:25 Freq: Status: Active Protocol: Document 05/02/21 07:35 [facility] (Rec: 05/02/21 09:01 [facility] [id number]) Cardio Equipment Bicycle (Upright) Duration (Minutes) 5 Resistance 10 Seat Position 7 Therapeutic Exercises Supine Exercises bridge Supine Exercise Name onto bosu & progressed to w/ alt slight march Side bilateral Reps/Minutes 10 Standing Exercises lunge Standing Exercise Name onto bosu Side bilateral Reps/Minutes 10 Comments rail prn sidestep Side bilateral Equipment Used L2 Reps/Minutes 2x15ft squat Standing Exercise Name full over chair Side bilateral Reps/Minutes 1x15 Comments focus on R foot position and R knee tracking hip ext Standing Exercise Name cues for more neutral spine Side bilateral Equipment Used L2 Reps/Minutes 10 hip abd Side bilateral Equipment Used L2 Reps/Minutes 10 Self-Care/Home Management Treatment Education Other Education safety w/bosu, importance of cont HEP a few times a week. edu to cont to work on posture PT-OP-T Assessment and Plan Start: 02/22/21 16:25 Freq: Status: Active Protocol: Document 05/02/21 07:35 [facility] (Rec: 05/02/21 09:01 [facility] [id number]) Physical Therapy Assessment Goals ROM Short Term Goal (STG) Pt will have full R knee ext w /o inc pain to improve gait mechanics 04/04-still some discomfort STG Duration mild discomfort at end if turns leg out how is comfortable strength Short Term Goal (STG) Pt will be indep w/HEP STG Duration achieved progressing as able Mcc Goal (LTG) Pt will have 5/5 LE MMT in all planes and at least 3/5 LPM in all planes without pain in order to show improved stabiltiy and strength to allow pt to do more w/o resulting pain. 04/04-improved LTG Duration improved stairs Mcc Goal (LTG) pt will be able to descend stairs w/o any pain in R knee. 04/04-no pain in knee some discomfort in R goodman LTG Duration achieved walking Banquet Manager Goal (LTG) Pt will be able to walk [place] park without pain showing he can go up/down hills and walk for distance w/o inc pain 04/04-notes still occc goodman pain LTG Duration achieved 04/11 Assessment Summary Assessment Pt required cues for hip abd and ext and bridge for neutral spine position and core engagment. Was able to modify bridges fro more difficulty and lunge to more comfort w/ use of bosu w/edu to keep bosu by surfaces so it does not slide and so he has something to hold onto. DC at this time d/t met most goals. Physical Therapy Plan Frequency and Duration Frequency of Treatment 1x Plan of Care Start Date 05/02/21 Plan of Care End Date 05/02/21 Therapeutic Interventions Therapeutic Interventions Aquatic Therapy,Balance Training,Gait Training,Home Exercise Program,Joint Mobilizations,Manual Therapy, Neuromuscular Re-education, Patient/Caregiver Education, Self-Care/Home Management,Soft Tissue Mobilization,Taping, Therapeutic Activities, Therapeutic Exercises Modalities Cold Pack/Ice Massage,Electric Stimulation,Hot Packs, Infrared Therapy,Ultrasound Discharge Physical Therapy Discharge Reasons Goals Met
== END 2021-07-04 09:35 ==
LOC: PHYS 07:30
PROVIDERS: Family Provider Student in an Organized Health Care Education/Training Program; PCP Student in an Organized Health Care Education/Training Program; Referring Provider Orthopaedic Surgery; Visit Provider Orthopaedic Surgery
DX: M17.11 Unilateral primary osteoarthritis, right knee (principal); R53.1 Weakness; R26.2 Difficulty in walking, not elsewhere classified; M25.551 Pain in right hip
CPT/HCPCS: 97110; 97112; 97116; 97140; 97162; 97535

== ENCOUNTER → 2021-11-04 13:20 | Outpatient (CLI) | payer MEDICARE, BC, SELFPAY ==
[2021-11-04 14:14] LABS: Influenza A - CEPHEID Flu A NEGATIVE (NEGATIVE); Influenza B - CEPHEID Flu B NEGATIVE (NEGATIVE)
[2021-11-04 15:46] LABS: COVID-19 CEPHEID PCR (VTM/NP) POSITIVE (Negative)
== END ==
PROVIDERS: Family Provider Student in an Organized Health Care Education/Training Program; PCP Student in an Organized Health Care Education/Training Program; Visit Provider Physician Assistant
DX: U07.1 COVID-19 (principal); R05.9 Cough, unspecified; Z20.822 Contact with and (suspected) exposure to COVID-19
CPT/HCPCS: 0240U

== ENCOUNTER → 2022-03-20 09:22 | Outpatient (CLI) | payer MEDICARE, BC, SELFPAY ==
[2022-03-20 12:05] LABS: COVID19 -Nasal RAPID Negative (Negative)
== END ==
PROVIDERS: Family Provider Student in an Organized Health Care Education/Training Program; PCP Student in an Organized Health Care Education/Training Program; Visit Provider Surgery
DX: Z20.822 Contact with and (suspected) exposure to COVID-19 (principal); Z01.812 Encounter for preprocedural laboratory examination
CPT/HCPCS: 87635; C9803

== ENCOUNTER 2022-03-21 08:48 | Day surgery (SDC) | payer MEDICARE, BC, SELFPAY ==
[2022-03-21] VITALS (7 sets, daily range): BP systolic 80–152; BP diastolic 51–89; PULSE 52–59; RESP 12–16; TEMP 36–36.6; O2SAT 95–100; BMI 25.4
--- NOTE | 2022-03-21 | PATH_ITS ---
[facility] Accession Number: [id number] . 01 Material submitted: . PART A: duodenum - DUODENAL BIOPSY PART B: gastrointestinal site - GASTRIC BIOPSY PART C: colon - RANDOM COLON BIOPSIES . 01 Diagnosis: A. Duodenum, Biopsy: Duodenal mucosa with no diagnostic abnormality. Negative for active inflammation, features of sprue, dysplasia, or malignancy. . B. Stomach, Biopsy: Gastric body mucosa with no diagnostic abnormality. No evidence of Helicobacter organisms on H/E stain. Negative for intestinal metaplasia. Negative for dysplasia or malignancy. . C. Random Colon, Biopsies: Colonic mucosa with no diagnostic abnormality. Negative for active, chronic, and microscopic colitis. Negative for dysplasia and malignancy. . MRV 03/23/2022 1850 Local . 01 Electronically signed: . Aden Yuan MD, PhD, Pathologist NPI- [id number] . 01 Gross description: . Part A: DUODENAL BIOPSY: Received in formalin is 1 fragment(s) of argueta, soft tissue measuring 0.4 x 0.2 x 0.1 cm submitted entirely in 1 cassette(s) Part B: GASTRIC BIOPSY: Received in formalin are 2 fragment(s) of argueta, soft tissue measuring 0.2 x 0.2 x 0.2 cm to 0.2 x 0.1 x 0.1 cm submitted entirely in 1 cassette(s) Part C: RANDOM COLON BIOPSIES: Received in formalin are 4 fragment(s) of argueta, soft tissue measuring 1.0 x 0.1 x 0.1 cm to 0.1 x 0.1 x 0.1 cm submitted entirely in 1 cassette(s) /CPE 03/22/2022 0737 Local . 01 Pathologist provided ICD-10: R19.7, R10.13 . 01 CPT . 170292, 613791, 027003 Specimen Comment: A courtesy copy of this report has been sent to [phone] Performed at: [facility] [address] [place] [address] [id number] MD Riley Bowens MD Phone: [phone]
[2022-03-21] MEDS: LACTATED RINGERS 1,000 ML 42 ML IV (09:37)
--- NOTE | 2022-03-21 10:06 | PM.HP.1 ---
History of Present Illness History of Present Illness Date Patient Seen: 03/21/22 Chief complaint: SDC Narrative: History of colon polyps with more recent history of loose stools. Colonoscopy to evaluate for recurrent colon polyps but also to take random biopsies to rule out microscopic colitis. In addition, he has had some unusual suprasternal notch dysphagia. EGD will be performed to evaluate and to take duodenal biopsies to rule out celiac. Patient History Medical History Actinic keratosis (2000) Benign familial tremor (2015) Chickenpox (1971) CKD (chronic kidney disease) (2010) Colon polyps (2007) Depression (2005) Diastasis of rectus abdominis Diverticular disease (2006) External hemorrhoid Gout (2009) Hypercholesterolemia (Unknown) Osteoarthritis (2015) Speech and language deficits Tinnitus of both ears (2014) Surgical History Status post cholecystectomy Family & Social History Family History Father Hypertension Hyperlipidemia Mother Cancer Social History: household members significant other lives independently Yes Tobacco & Substance use: Smoking Status Never smoker alcohol intake never Substance Use Type does not use Meds Home Medications and Allergies Home Medications Medication Instructions Recorded Confirmed Type cholecalciferol (vitamin D3) 50 2,000 unit PO QDAY ##0 09/10/16 03/21/22 History mcg (2,000 unit) capsule (Vitamin D3) omega 7-cmz-llx-fish oil 1,000 mg 1,000 mg PO QDAY ##0 09/10/16 03/21/22 History (120 mg-180 mg) capsule (Fish Oil) psyllium husk (with sugar) 3.4 3.4 gm PO ##0 09/10/16 01/17/22 History gram oral powder packet (Metamucil (with sugar)) vitamin B complex (B 1 tab PO QDAY ##0 09/10/16 01/17/22 History Complex-Vitamin B12 tablet) allopurinol 100 mg tablet 100 mg PO DAILY #90 tabs 08/14/21 03/21/22 Rx propranolol 60 mg capsule,24 60 mg PO QDAY #90 caps 08/14/21 03/21/22 Rx hr,extended release doxazosin 4 mg tablet 4 mg PO BID #180 tabs 09/18/21 03/21/22 Rx simvastatin 10 mg tablet 10 mg PO HS #90 tabs 10/09/21 03/21/22 Rx escitalopram oxalate 10 mg tablet 10 mg PO DAILY #90 tabs 02/18/22 03/21/22 Rx Allergies Allergy/AdvReac Type Severity Reaction Status Date / Time bupropion AdvReac Intermediate Tremor, Verified 03/21/22 09:21 Memory loss Exam Vital Signs (past 8 hours): - 03/21/22 09:25 Temperature 96.8 F L Pulse Rate 59 L Respiratory Rate 16 Blood Pressure 152/80 H Pulse Oximetry 99 Oxygen Delivery Method Room Air Oxygen Delivery Method Room Air Narrative Exam Narrative: Oropharynx free of lesions Chest clear to auscultation percussion Cardiac exam reveals no S3 or murmur. Assessment & Plan Assessment & Plan narrative: 1. History of colon polyps 2. Loose stools biopsies need to rule out microscopic colitis 3. Dysphagia need for upper endoscopy to rule out mechanical cause 4. Biopsies to be taken in the duodenum to rule out celiac disease Risks benefits alternatives have been explained. The scope be set up for the patient at this earliest convenience. Time Spent With Patient Critical Care time: I spent a total of [] minutes of critical care time on this patient's care today; this time is exclusive of procedural time.
--- NOTE | 2022-03-21 10:08 | PM.OP.EC ---
Operative Date/Time/Diagnoses Date of procedure: 03/21/22 Pre-op diagnosis: See indication and findings Procedure & Clinicians Study performed: EGD and colonoscopy Indications: New onset loose stools need for colonoscopy and biopsy. Also history of colon polyps. Substernal dysphagia need for upper endoscopy. Biopsies to be taken of the duodenum to rule out celiac. Surgeon: Melvi Bueno Procedure Notes Procedure in detail: After informed consent was obtained the patient was placed in left lateral decubitus position. The video upper scope was placed into the oropharynx and with the patient's help swallowed into the esophagus. The esophagus stomach and duodenum were carefully examined. On withdrawal retroflexed view the GE junction was performed. The scope was removed. The patient tolerated procedure well. The patient was then turned in the colonoscope substituted. This was introduced the rectum slowly advanced to the cecum. Preparation was good. On slow withdrawal mucosa was carefully examined. The scope was removed. The patient tolerated procedure well. Blood loss none Complications none Sedation propofol Findings EGD 1. Wide-open Schatzki's ring at GE junction. No evidence for any inflammation 2. Hiatal hernia 4 cm with diaphragmatic hiatus at 40 cm 3. Streaky gastric erythema biopsies taken to rule out Helicobacter 4. 6 cm submucosal lump on the greater curvature/anterior wall at the border of antrum and body. No biopsies taken 5. Normal duodenal bulb and sweep biopsies taken to rule out celiac disease Colonoscopy 1. Normal colonoscopy to cecum other than rare scattered diverticular disease. Biopsies taken randomly to rule out microscopic colitis Mr. Mariee will need endoscopic ultrasound to evaluate this submucosal lesion which is probably a benign gist tumor. He then can follow-up with me or any of us in the office and and Cordis. We will be in touch regarding biopsies.
--- NOTE | 2022-03-21 11:43 | SUR.PHASEII ---
Patient ambulated to wheelchair with steady gait. Tolerated fluids. Provided discharge instructions written/verbal. Patient stated understanding. discharge patient by wheelchair to private vehicle in stable condition. see flowsheet for assessment details.
== END 2022-03-21 11:37 | disposition home or self-care (01) ==
PROVIDERS: Family Provider Student in an Organized Health Care Education/Training Program; PCP Student in an Organized Health Care Education/Training Program; Referring Provider Internal Medicine Gastroenterology; Visit Provider Internal Medicine Gastroenterology
PROC: 0DJD8ZZ Inspection of Lower Intestinal Tract, Via Natural or Artificial Opening Endoscopic (ICD-10-PCS; CPT 45378; principal; 2022-03-21 10:00)
PROC: 0DJ08ZZ Inspection of Upper Intestinal Tract, Via Natural or Artificial Opening Endoscopic (ICD-10-PCS; CPT 43235; 2022-03-21 10:00)
DX: R19.7 Diarrhea, unspecified (principal); Z86.010 Personal history of colon polyps; R13.19 Other dysphagia; K57.30 Diverticulosis of large intestine without perforation or abscess without bleeding; K22.2 Esophageal obstruction; K44.9 Diaphragmatic hernia without obstruction or gangrene
CPT/HCPCS: 45380; 43239; J2704

== ENCOUNTER 2022-10-09 14:15 | Outpatient (RCR) | payer MEDICARE, BC, SELFPAY ==
--- NOTE | 2022-08-24 11:37 | PT.OIE ---
Current Diagnoses Other specific arthropathies, not elsewhere classified, left shoulder (08/24/22) Unspecified rotator cuff tear or rupture of left shoulder, not specified as traumatic (08/24/22) Past Medical History (Last Reviewed 05/01/22 @ 15:13 by Fredrick Ely MD) Actinic keratosis (2000) Benign familial tremor (2015) Chickenpox (1971) CKD (chronic kidney disease) (2010) Colon polyps (2007) Depression (2005) Diastasis of rectus abdominis Diverticular disease (2007) External hemorrhoid Gout (2010) Hypercholesterolemia (Unknown) Osteoarthritis (2015) Speech and language deficits Tinnitus of both ears (2015) Past Surgical History (Last Reviewed 05/01/22 @ 15:13 by Fredrick Ely MD) Status post cholecystectomy Visit Care Team Role Provider Type Fred Erwin MD Attending Provider Physician Family Provider Primary Care Provider Referring Provider Specialty: Internal Medicine Address: [address] [place] [address], [address], [facility] Email: [email or web address] Physical Therapy Initial Evaluation PT-OP-A Visit Information Start: 08/24/22 08:13 Freq: Status: Active Protocol: Document 08/24/22 08:14 [facility] (Rec: 08/24/22 11:36 [facility] [id number]) Out-Patient Physical Therapy Visit Information Visit Information Visit Type Initial Evaluation Visit Start Time 08:15 Visit Stop Time 09:00 Total Visit Minutes 45 Visit Number 1 Number of BALL HOLDER Visits 0 PT-OP-B Current Condition Start: 08/24/22 08:13 Freq: Status: Active Protocol: Document 08/24/22 08:14 [facility] (Rec: 08/24/22 11:36 [facility] [id number]) Current Condition History of Current Condition History of Current Condition Pt reports left shoulder pain started about 2 months ago. He had awakened from a nap when he noticed left shoulder pain. Pt attends a [employer] fitness class and therefore his ROM has been pretty good. Pain described as an ache and needle stick pain with movement past 90 degrees. 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 Prior Functional Status Baseline Function- ADL's Independent Baseline Function- Mobility Independent Baseline Function- Other Does senoir ex class weekly PT-OP-E Functional Tests Start: 08/24/22 08:13 Freq: Status: Active Protocol: Document 08/24/22 08:14 [facility] (Rec: 08/24/22 11:36 [facility] [id number]) Functional Tests Other Quick Dash Score 27 PT-OP-K Range of Motion Start: 08/24/22 08:13 Freq: Status: Active Protocol: Document 08/24/22 08:14 [facility] (Rec: 08/24/22 11:36 [facility] [id number]) Shoulder Goniometric Range of Motion Shoulder left Testing Position Standing Flexion 95 Abduction 89 External Rotation at 0 degrees Abduction 86 Internal Rotation Behind Back (text) L4 Comments Right trunk concave, forward rot left trunk, ant transition of left humeral head, ant tilt left scapula, winging left scap. Palpation: No tenderness to touch except left pec / RTC tendons PT-OP-L Special Tests Start: 08/24/22 08:13 Freq: Status: Active Protocol: Document 08/24/22 08:14 [facility] (Rec: 08/24/22 11:36 [facility] [id number]) Special Tests Shoulder Special Tests subscapularis belly pres test Comments neg. Neer Impingement Comments pos PT-OP-Q Treatments Start: 08/24/22 08:13 Freq: Status: Active Protocol: Document 08/24/22 08:14 [facility] (Rec: 08/24/22 11:36 [facility] [id number]) Manual Therapy Treatment Manual Techniques GHJ mob Body Position Supine Comments Left GHJ glides post./ inf. Self-Care/Home Management Treatment Education Patient Education Home Exercise Program Caregiver Education Attenpted trap stretch on left / pain with this stretch / hold for now Other Education Access Code: [email or web address] URL: [email or web address] Date: 08/24/2022 Prepared by: Sofia Camara Exercises - Supine Shoulder Abduction AAROM with Dowel - 1 x daily - 7 x weekly - 3 sets - 10 reps - Supine Shoulder Flexion AAROM with Hands Clasped - 1 x daily - 7 x weekly - 3 sets - 10 reps PT-OP-T Assessment and Plan Start: 08/24/22 08:13 Freq: Status: Active Protocol: Document 08/24/22 08:14 [facility] (Rec: 08/24/22 11:36 TH [id number]) Physical Therapy Assessment Rehab Potential Rehabilitation Potential Excellent Evaluation Complexity Number of Personal Factors/Comorbidities 0 Number of Body Systems Impaired 1-2 Clinical Presentation at Evaluation Stable Goals 3 Impairment Ant tilt left scapula Short Term Goal (STG) Left scapular ant tilt will improve by 50 %. STG Duration 10/05/22 Mobile Nurse Goal (LTG) Left scapular ant tilt will imprpve by 100% LTG Duration 11/23/22 2 Impairment Pain with lifting weighted objects Short Term Goal (STG) Pt will be able to lift 10 lb weighted box with pain < =4/10 . STG Duration 10/05/22 Mcc Goal (LTG) Pt will be able to lift 20 lb weighted box with minimal to no pain LTG Duration 11/23/22 1 Impairment Pt unable to raise left arm past 90 degrees without pain. Short Term Goal (STG) Left shld abd/ flex will improve to > = 100 degrees with pain <= 4/10. STG Duration 10/05/22 Mobile Nurse Goal (LTG) Left shld abd/ flex will improve to WNL degrees with minimal to no left shld pain. LTG Duration 11/23/22 Assessment Summary Assessment Pt presents with shoulder impingement with possible RTC tear/ SLAP. Pt has not had mri to confirm at this time. Pt will benefit from further PT to improve left shld strength/ rom. Physical Therapy Plan Frequency and Duration Frequency of Treatment 1-2 x/ wk Duration of treatment (weeks) 12 Plan of Care Start Date 08/24/22 Plan of Care End Date 11/23/22 Next Visit Focus/Plan Next Note Type Treatment Note Next Visit Plan Shld mob shld strengthening
--- NOTE | 2022-08-24 11:37 | PT.OPPOC ---
Physical, Occupational & Speech Therapy At [facility] Current Diagnoses Other specific arthropathies, not elsewhere classified, left shoulder (08/24/22) Unspecified rotator cuff tear or rupture of left shoulder, not specified as traumatic (08/24/22) Visit Care Team Role Provider Type Fred Erwin MD Attending Provider Physician Family Provider Primary Care Provider Referring Provider Specialty: Internal Medicine Address: [address] [place] [address], [address], [address] Email: [email or web address] Plan Of Care PT-OP-T Assessment and Plan Start: 08/24/22 08:13 Freq: Status: Active Protocol: Document 08/24/22 08:14 TH (Rec: 08/24/22 11:36 TH [id number]) Physical Therapy Assessment Rehab Potential Rehabilitation Potential Excellent Evaluation Complexity Number of Personal Factors/Comorbidities 0 Number of Body Systems Impaired 1-2 Clinical Presentation at Evaluation Stable Goals 3 Impairment Ant tilt left scapula Short Term Goal (STG) Left scapular ant tilt will improve by 50 %. STG Duration 10/05/22 Nursing Home Goal (LTG) Left scapular ant tilt will imprpve by 100% LTG Duration 11/23/22 2 Impairment Pain with lifting weighted objects Short Term Goal (STG) Pt will be able to lift 10 lb weighted box with pain < =4/10 . STG Duration 10/05/22 Physics Tutor Goal (LTG) Pt will be able to lift 20 lb weighted box with minimal to no pain LTG Duration 11/23/22 1 Impairment Pt unable to raise left arm past 90 degrees without pain. Short Term Goal (STG) Left shld abd/ flex will improve to > = 100 degrees with pain <= 4/10. STG Duration 10/05/22 Physics Tutor Goal (LTG) Left shld abd/ flex will improve to WNL degrees with minimal to no left shld pain. LTG Duration 11/23/22 Assessment Summary Assessment Pt presents with shoulder impingement with possible RTC tear/ SLAP. Pt has not had mri to confirm at this time. Pt will benefit from further PT to improve left shld strength/ rom. Physical Therapy Plan Frequency and Duration Frequency of Treatment 1-2 x/ wk Duration of treatment (weeks) 12 Plan of Care Start Date 08/24/22 Plan of Care End Date 11/23/22 Next Visit Focus/Plan Next Note Type Treatment Note Next Visit Plan Shld mob shld strengthening Plan of Care Dates Plan of Care Start Date 08/24/22 Plan of Care End Date 11/23/22 Electronically Signed by: Sofia Camara, PT 08/24/22 [id number] If you are in agreement with this Plan of Care, please return a signed and dated copy. I have reviewed this Plan of Care and certify that the skilled therapy services above are required to meet the patient?s needs. Physician Signature Date Printed Name and Credentials Clinical Instructor Signature Printed Name and Credentials
--- NOTE | 2022-08-29 08:15 | PT.OTN ---
Current Diagnoses Other specific arthropathies, not elsewhere classified, left shoulder (08/29/22) Unspecified rotator cuff tear or rupture of left shoulder, not specified as traumatic (08/29/22) Physical Therapy Treatment Note PT-OP-A Visit Information Start: 08/24/22 08:13 Freq: Status: Active Protocol: Document 08/29/22 07:34 SP (Rec: 08/29/22 08:23 SP [id number]) Out-Patient Physical Therapy Visit Information Visit Information Visit Type Treatment Note Visit Start Time 07:34 Visit Stop Time 08:20 Total Visit Minutes 46 Visit Number 2 Number of GIS GEOGRAPHER Visits 1 PT-OP-B Current Condition Start: 08/24/22 08:13 Freq: Status: Active Protocol: Document 08/24/22 08:14 TH (Rec: 08/24/22 11:36 TH [id number]) Current Condition History of Current Condition History of Current Condition Pt reports left shoulder pain started about 2 months ago. He had awakened from a nap when he noticed left shoulder pain. Pt attends a [employer] fitness class and therefore his ROM has been pretty good. Pain described as an ache and needle stick pain with movement past 90 degrees. 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 Prior Functional Status Baseline Function- ADL's Independent Baseline Function- Mobility Independent Baseline Function- Other Does [employer] ex class weekly PT-OP-C Subjective Start: 08/24/22 08:13 Freq: Status: Active Protocol: Document 08/29/22 07:34 SP (Rec: 08/29/22 08:23 SP [id number]) OP-PT Subjective Patient Comments Patient Comments Pt reports no changes since last tx, only got a stretch and doing. PT-OP-E Functional Tests Start: 08/24/22 08:13 Freq: Status: Active Protocol: Document 08/24/22 08:14 TH (Rec: 08/24/22 11:36 TH [id number]) Functional Tests Other Quick Dash Score 27 PT-OP-K Range of Motion Start: 08/24/22 08:13 Freq: Status: Active Protocol: Document 08/24/22 08:14 TH (Rec: 08/24/22 11:36 TH [id number]) Shoulder Goniometric Range of Motion Shoulder left Testing Position Standing Flexion 95 Abduction 89 External Rotation at 0 degrees Abduction 86 Internal Rotation Behind Back (text) L4 Comments Right trunk concave, forward rot left trunk, ant transition of left humeral head, ant tilt left scapula, winging left scap. Palpation: No tenderness to touch except left pec / RTC tendons PT-OP-L Special Tests Start: 08/24/22 08:13 Freq: Status: Active Protocol: Document 08/24/22 08:14 TH (Rec: 08/24/22 11:36 TH [id number]) Special Tests Shoulder Special Tests subscapularis belly pres test Comments neg. Neer Impingement Comments pos PT-OP-Q Treatments Start: 08/24/22 08:13 Freq: Status: Active Protocol: Document 08/29/22 07:34 SP (Rec: 08/29/22 08:23 SP [id number]) Therapeutic Exercises Supine Exercises FF, ABD Supine Exercise Name reviewed self HEP Side left Resistance AROM serratus press Supine Exercise Name added to HEP Side left Resistance AROM Reps/Minutes x10 Comments good feedback response Sidelying Exercises open book Sidelying Exercise Name in PT, recheck next tx for HEP Side left Reps/Minutes 5reps Comments cues verbal and tactile for scapular glide and no UT recruitment Sitting Exercises chin tuck Sitting Exercise Name added to HEP Reps/Minutes 5SH x5 Comments support posturing scap retraction Sitting Exercise Name added to HEP Side bilateral Reps/Minutes 5 SH x10 Comments support posturing Standing Exercises ff, abd Standing Exercise Name added to HEP Side left Equipment Used in mirror Comments cued little serratus press and no UT recruitment Manual Therapy Treatment Soft Tissue Mobilization L shld Body Location L: UT, LS, pec, rhomboid, infrasp, suprasp Mobilization Type Strumming,Sustained Pressure, Other Comments manual sustained pressure and MWM arm small ROM self carryover Manual Techniques L scapulothoracic Body Position Sidelying Comments manual and cues for scapular retraction/depression fluid movement, no UT recruitment GHJ mob Body Position Supine Comments Left GHJ glides post./ inf. gentle PT-OP-T Assessment and Plan Start: 08/24/22 08:13 Freq: Status: Active Protocol: Document 08/29/22 07:34 SP (Rec: 08/29/22 08:23 SP [id number]) Physical Therapy Assessment Goals 3 Impairment Ant tilt left scapula Short Term Goal (STG) Left scapular ant tilt will improve by 50 %. STG Duration 10/05/22 Science Center Display Builder Goal (LTG) Left scapular ant tilt will imprpve by 100% LTG Duration 11/23/22 2 Impairment Pain with lifting weighted objects Short Term Goal (STG) Pt will be able to lift 10 lb weighted box with pain < =4/10 . STG Duration 10/05/22 Mcc Goal (LTG) Pt will be able to lift 20 lb weighted box with minimal to no pain LTG Duration 11/23/22 1 Impairment Pt unable to raise left arm past 90 degrees without pain. Short Term Goal (STG) Left shld abd/ flex will improve to > = 100 degrees with pain <= 4/10. STG Duration 10/05/22 Mcc Goal (LTG) Left shld abd/ flex will improve to WNL degrees with minimal to no left shld pain. LTG Duration 11/23/22 Assessment Summary Assessment Pt reponded well to manual and ed for scap stabilization and slow fluid movement with no UT recruitment. Pain free end tx and better self corrections with posture awareness. Physical Therapy Plan Frequency and Duration Frequency of Treatment 1-2 x/ wk Duration of treatment (weeks) 12 Plan of Care Start Date 08/24/22 Plan of Care End Date 11/23/22 Next Visit Focus/Plan Next Note Type Treatment Note Next Visit Plan recheck HEP: Shld mob shld strengthening
--- NOTE | 2022-08-29 08:20 | PT.OTN ---
Current Diagnoses Other specific arthropathies, not elsewhere classified, left shoulder (08/29/22) Unspecified rotator cuff tear or rupture of left shoulder, not specified as traumatic (08/29/22) Physical Therapy Treatment Note PT-OP-A Visit Information Start: 08/24/22 08:13 Freq: Status: Active Protocol: Document 08/29/22 07:34 SP (Rec: 08/29/22 08:23 SP [id number]) Out-Patient Physical Therapy Visit Information Visit Information Visit Type Treatment Note Visit Start Time 07:34 Visit Stop Time 08:20 Total Visit Minutes 46 Visit Number [address] Vis[address] 1 PT-OP-B Current Condition Start: 08/24/22 08:13 Freq: Status: Active Protocol: Document 08/24/22 08:14 TH (Rec: 08/24/22 11:36 TH [id number]) Current Condition History of Current Condition History of Current Condition Pt reports left shoulder pain started about 2 months ago. He had awakened from a nap when he noticed left shoulder pain. Pt attends a [employer] fitness class and therefore his ROM has been pretty good. Pain described as an ache and needle stick pain with movement past 90 degrees. 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 Prior Functional Status Baseline Function- ADL's Independent Baseline Function- Mobility Independent Baseline Function- Other Does [employer] ex class weekly PT-OP-C Subjective Start: 08/24/22 08:13 Freq: Status: Active Protocol: Document 08/29/22 07:34 SP (Rec: 08/29/22 08:23 SP [id number]) OP-PT Subjective Patient Comments Patient Comments Pt reports no changes since last tx, only got a stretch and doing. PT-OP-E Functional Tests Start: 08/24/22 08:13 Freq: Status: Active Protocol: Document 08/24/22 08:14 TH (Rec: 08/24/22 11:36 TH [id number]) Functional Tests Other Quick Dash Score 27 PT-OP-K Range of Motion Start: 08/24/22 08:13 Freq: Status: Active Protocol: Document 08/24/22 08:14 TH (Rec: 08/24/22 11:36 TH [id number]) Shoulder Goniometric Range of Motion Shoulder left Testing Position Standing Flexion 95 Abduction 89 External Rotation at 0 degrees Abduction 86 Internal Rotation Behind Back (text) L4 Comments Right trunk concave, forward rot left trunk, ant transition of left humeral head, ant tilt left scapula, winging left scap. Palpation: No tenderness to touch except left pec / RTC tendons PT-OP-L Special Tests Start: 08/24/22 08:13 Freq: Status: Active Protocol: Document 08/24/22 08:14 TH (Rec: 08/24/22 11:36 TH [id number]) Special Tests Shoulder Special Tests subscapularis belly pres test Comments neg. Neer Impingement Comments pos PT-OP-Q Treatments Start: 08/24/22 08:13 Freq: Status: Active Protocol: Document 08/29/22 07:34 SP (Rec: 08/29/22 08:23 SP [id number]) Therapeutic Exercises Supine Exercises FF, ABD Supine Exercise Name reviewed self HEP Side left Resistance AROM serratus press Supine Exercise Name added to HEP Side left Resistance AROM Reps/Minutes x10 Comments good feedback response Sidelying Exercises open book Sidelying Exercise Name in PT, recheck next tx for HEP Side left Reps/Minutes 5reps Comments cues verbal and tactile for scapular glide and no UT recruitment Sitting Exercises chin tuck Sitting Exercise Name added to HEP Reps/Minutes 5SH x5 Comments support posturing scap retraction Sitting Exercise Name added to HEP Side bilateral Reps/Minutes 5 SH x10 Comments support posturing Standing Exercises ff, abd Standing Exercise Name added to HEP Side left Equipment Used in mirror Comments cued little serratus press and no UT recruitment Manual Therapy Treatment Soft Tissue Mobilization L shld Body Location L: UT, LS, pec, rhomboid, infrasp, suprasp Mobilization Type Strumming,Sustained Pressure, Other Comments manual sustained pressure and MWM arm small ROM self carryover Manual Techniques L scapulothoracic Body Position Sidelying Comments manual and cues for scapular retraction/depression fluid movement, no UT recruitment GHJ mob Body Position Supine Comments Left GHJ glides post./ inf. gentle PT-OP-T Assessment and Plan Start: 08/24/22 08:13 Freq: Status: Active Protocol: Document 08/29/22 07:34 SP (Rec: 08/29/22 08:23 SP [id number]) Physical Therapy Assessment Goals 3 Impairment Ant tilt left scapula Short Term Goal (STG) Left scapular ant tilt will improve by 50 %. STG Duration 10/05/22 Mold Breaker Goal (LTG) Left scapular ant tilt will imprpve by 100% LTG Duration 11/23/22 2 Impairment Pain with lifting weighted objects Short Term Goal (STG) Pt will be able to lift 10 lb weighted box with pain < =4/10 . STG Duration 10/05/22 Retirement Goal (LTG) Pt will be able to lift 20 lb weighted box with minimal to no pain LTG Duration 11/23/22 1 Impairment Pt unable to raise left arm past 90 degrees without pain. Short Term Goal (STG) Left shld abd/ flex will improve to > = 100 degrees with pain <= 4/10. STG Duration 10/05/22 Retirement Goal (LTG) Left shld abd/ flex will improve to WNL degrees with minimal to no left shld pain. LTG Duration 11/23/22 Assessment Summary Assessment Pt reponded well to manual and ed for scap stabilization and slow fluid movement with no UT recruitment. Pain free end tx and better self corrections with posture awareness. Physical Therapy Plan Frequency and Duration Frequency of Treatment 1-2 x/ wk Duration of treatment (weeks) 12 Plan of Care Start Date 08/24/22 Plan of Care End Date 11/23/22 Next Visit Focus/Plan Next Note Type Treatment Note Next Visit Plan recheck HEP: Shld mob shld strengthening
--- NOTE | 2022-09-07 15:51 | PT.OTN ---
Current Diagnoses Other specific arthropathies, not elsewhere classified, left shoulder (09/07/22) Unspecified rotator cuff tear or rupture of left shoulder, not specified as traumatic (09/07/22) Physical Therapy Treatment Note PT-OP-A Visit Information Start: 08/24/22 08:13 Freq: Status: Active Protocol: Document 09/07/22 14:33 NBM (Rec: 09/07/22 15:51 [facility] [id number]) Out-Patient Physical Therapy Visit Information Visit Information Visit Type Treatment Note Visit Start Time 14:33 Visit Stop Time 15:21 Total Visit Minutes 48 Visit Number 3 Number of ASSURANCE SENIOR MANAGER Visits 2 PT-OP-B Current Condition Start: 08/24/22 08:13 Freq: Status: Active Protocol: Document 08/24/22 08:14 TH (Rec: 08/24/22 11:36 TH [id number]) Current Condition History of Current Condition History of Current Condition Pt reports left shoulder pain started about 2 months ago. He had awakened from a nap when he noticed left shoulder pain. Pt attends a [employer] fitness class and therefore his ROM has been pretty good. Pain described as an ache and needle stick pain with movement past 90 degrees. 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 Prior Functional Status Baseline Function- ADL's Independent Baseline Function- Mobility Independent Baseline Function- Other Does [employer] ex class weekly PT-OP-C Subjective Start: 08/24/22 08:13 Freq: Status: Active Protocol: Document 09/07/22 14:33 NBM (Rec: 09/07/22 15:51 [facility] [id number]) OP-PT Subjective Patient Comments Patient Comments Pt reports more mindful of posture and chin tucks with Silver Sneakers ex's. Pt reports he can lift 5# weights now and could not when he first started PT. He has a pinpoint area of pain on his L shoulder. Pt can lie on his L shoulder now but states he could not a few weeks ago. PT-OP-E Functional Tests Start: 08/24/22 08:13 Freq: Status: Active Protocol: Document 08/24/22 08:14 TH (Rec: 08/24/22 11:36 TH [id number]) Functional Tests Other Quick Dash Score 27 PT-OP-K Range of Motion Start: 08/24/22 08:13 Freq: Status: Active Protocol: Document 08/24/22 08:14 TH (Rec: 08/24/22 11:36 TH [id number]) Shoulder Goniometric Range of Motion Shoulder left Testing Position Standing Flexion 95 Abduction 89 External Rotation at 0 degrees Abduction 86 Internal Rotation Behind Back (text) L4 Comments Right trunk concave, forward rot left trunk, ant transition of left humeral head, ant tilt left scapula, winging left scap. Palpation: No tenderness to touch except left pec / RTC tendons PT-OP-L Special Tests Start: 08/24/22 08:13 Freq: Status: Active Protocol: Document 08/24/22 08:14 TH (Rec: 08/24/22 11:36 TH [id number]) Special Tests Shoulder Special Tests subscapularis belly pres test Comments neg. Neer Impingement Comments pos PT-OP-Q Treatments Start: 08/24/22 08:13 Freq: Status: Active Protocol: Document 09/07/22 14:33 NBM (Rec: 09/07/22 15:51 NBM [id number]) Therapeutic Exercises Supine Exercises FF, ABD Supine Exercise Name HEP Side left Resistance AROM>AAROM Reps/Minutes x5 AROM, x10 AAROM Comments c/o L pinpoint pain w/ AROM, improves w/ AAROM, vc scap setting serratus press Supine Exercise Name HEP Side left Resistance AROM Reps/Minutes x10 Comments cues for scap setting and chin tuck Sidelying Exercises open book Sidelying Exercise Name in PT clinic, recheck next tx for HEP Side left Reps/Minutes 10 reps Comments cues verbal and tactile for scapular glide and no UT recruitment Sitting Exercises Levator Scap stretch Side bilateral Equipment Used mirror Reps/Minutes x20s ea Comments visual cues for scap setting and chin tuck, nose fwd Upper trap stretch Side bilateral Equipment Used mirror Reps/Minutes 3 x 20s Comments visual cues for scap setting and chin tuck, nose fwd chin tuck Reps/Minutes 5SH x5 Comments support posturing scap retraction Side bilateral Reps/Minutes 5 SH x10 Comments support posturing Standing Exercises shoulder extension Standing Exercise Name added to HEP Side bilateral Resistance Hardy Tb Reps/Minutes x10 Comments initial cues for scapular setting and chin tuck shoulder row Standing Exercise Name added to HEP Side bilateral Resistance Hardy Tb Reps/Minutes x10 Comments initial cues for scapular setting and chin tuck Self-Care/Home Management Treatment Education Patient Education Home Exercise Program Other Education Added to HEP: resisted shoulder rows/ext and reminder for self-STM - Hardy Tb and HO given. Discussed relationship between posture and shoulder anatomy. PT-OP-T Assessment and Plan Start: 08/24/22 08:13 Freq: Status: Active Protocol: Document 09/07/22 14:33 NBM (Rec: 09/07/22 15:51 NBM [id number]) Physical Therapy Assessment Goals 3 Impairment Ant tilt left scapula Short Term Goal (STG) Left scapular ant tilt will improve by 50 %. STG Duration 10/05/22 Screw Supervisor Goal (LTG) Left scapular ant tilt will imprpve by 100% LTG Duration 11/23/22 2 Impairment Pain with lifting weighted objects Short Term Goal (STG) Pt will be able to lift 10 lb weighted box with pain < =4/10 . STG Duration 10/05/22 Screw Supervisor Goal (LTG) Pt will be able to lift 20 lb weighted box with minimal to no pain LTG Duration 11/23/22 1 Impairment Pt unable to raise left arm past 90 degrees without pain. Short Term Goal (STG) Left shld abd/ flex will improve to > = 100 degrees with pain <= 4/10. STG Duration 10/05/22 Screw Supervisor Goal (LTG) Left shld abd/ flex will improve to WNL degrees with minimal to no left shld pain. LTG Duration 11/23/22 Assessment Summary Assessment Pt demonstrates improving pain with ability to lie on left shoulder and report of lifting 5# weights with Silver Sneakers now. Daniel requires initial and occasional cues to incorporate chin tuck and scapular setting into ex's and shows improved carry over with repetition and cueing this session. He requires max cues for form with Upper trap stretch which improves w/ visual feedback. Daniel reports pinpoint pain to area of L supraspinatus insertion which improves or resolves this session with scapular setting w/ chin tuck and cues for UT overactivation. Palpable tightness to UT and LS L>R improves w/ manual therapy. Added to HEP: resisted shoulder rows/ext and reminder for self-STM - Hardy Tb and HO given. Physical Therapy Plan Frequency and Duration Frequency of Treatment 1-2 x/ wk Duration of treatment (weeks) 12 Plan of Care Start Date 08/24/22 Plan of Care End Date 11/23/22 Next Visit Focus/Plan Next Note Type Treatment Note Next Visit Plan recheck HEP: UT/LS stretches w/ scap setting and yanci song Shld mob shld strengthening
--- NOTE | 2022-09-13 09:53 | PT.OTN ---
Current Diagnoses Other specific arthropathies, not elsewhere classified, left shoulder (09/13/22) Unspecified rotator cuff tear or rupture of left shoulder, not specified as traumatic (09/13/22) Physical Therapy Treatment Note PT-OP-A Visit Information Start: 08/24/22 08:13 Freq: Status: Active Protocol: Document 09/13/22 09:09 TH (Rec: 09/13/22 09:52 TH [id number]) Out-Patient Physical Therapy Visit Information Visit Information Visit Type Treatment Note Visit Start Time 09:00 Visit Stop Time 09:45 Total Visit Minutes 45 Visit Number 4 Number of FORENSIC SERGEANT Visits 0 PT-OP-B Current Condition Start: 08/24/22 08:13 Freq: Status: Active Protocol: Document 08/24/22 08:14 TH (Rec: 08/24/22 11:36 TH [id number]) Current Condition History of Current Condition History of Current Condition Pt reports left shoulder pain started about 2 months ago. He had awakened from a nap when he noticed left shoulder pain. Pt attends a [employer] fitness class and therefore his ROM has been pretty good. Pain described as an ache and needle stick pain with movement past 90 degrees. 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 Prior Functional Status Baseline Function- ADL's Independent Baseline Function- Mobility Independent Baseline Function- Other Does senoir ex class weekly PT-OP-C Subjective Start: 08/24/22 08:13 Freq: Status: Active Protocol: Document 09/07/22 14:33 NBM (Rec: 09/07/22 15:51 NBM [id number]) OP-PT Subjective Patient Comments Patient Comments Pt reports more mindful of posture and chin tucks with Silver Sneakers ex's. Pt reports he can lift 5# weights now and could not when he first started PT. He has a pinpoint area of pain on his L shoulder. Pt can lie on his L shoulder now but states he could not a few weeks ago. PT-OP-E Functional Tests Start: 08/24/22 08:13 Freq: Status: Active Protocol: Document 08/24/22 08:14 TH (Rec: 08/24/22 11:36 TH [id number]) Functional Tests Other Quick Dash Score 27 PT-OP-K Range of Motion Start: 08/24/22 08:13 Freq: Status: Active Protocol: Document 08/24/22 08:14 TH (Rec: 08/24/22 11:36 TH [id number]) Shoulder Goniometric Range of Motion Shoulder left Testing Position Standing Flexion 95 Abduction 89 External Rotation at 0 degrees Abduction 86 Internal Rotation Behind Back (text) L4 Comments Right trunk concave, forward rot left trunk, ant transition of left humeral head, ant tilt left scapula, winging left scap. Palpation: No tenderness to touch except left pec / RTC tendons PT-OP-L Special Tests Start: 08/24/22 08:13 Freq: Status: Active Protocol: Document 08/24/22 08:14 TH (Rec: 08/24/22 11:36 TH [id number]) Special Tests Shoulder Special Tests subscapularis belly pres test Comments neg. Neer Impingement Comments pos PT-OP-Q Treatments Start: 08/24/22 08:13 Freq: Status: Active Protocol: Document 09/13/22 09:09 TH (Rec: 09/13/22 09:52 TH [id number]) Therapeutic Exercises Other Exercises d2 in supine Comments 1 x 10 Manual Therapy Treatment Manual Techniques subscapularis release Comments left GHJ mob Body Position Supine Comments Left GHJ glides post., inf., ant. Self-Care/Home Management Treatment Education Patient Education Home Exercise Program Other Education Access Code: [email or web address] URL: [email or web address] Date: 09/13/2022 Prepared by: Sofia Camara Exercises - Supine Shoulder Abduction AAROM with Dowel - 1 x daily - 7 x weekly - 3 sets - 10 reps - Supine Shoulder Flexion AAROM with Hands Clasped - 1 x daily - 7 x weekly - 3 sets - 10 reps - Supine PNF D2 Flexion with Resistance - 1 x daily - 7 x weekly - 2 sets - 10 reps PT-OP-T Assessment and Plan Start: 08/24/22 08:13 Freq: Status: Active Protocol: Document 09/13/22 09:09 TH (Rec: 09/13/22 09:52 TH [id number]) Physical Therapy Assessment Goals 3 Impairment Ant tilt left scapula Short Term Goal (STG) Left scapular ant tilt will improve by 50 %. STG Duration 10/05/22 Care Home Goal (LTG) Left scapular ant tilt will imprpve by 100% LTG Duration 11/23/22 2 Impairment Pain with lifting weighted objects Short Term Goal (STG) Pt will be able to lift 10 lb weighted box with pain < =4/10 . STG Duration 10/05/22 Care Home Goal (LTG) Pt will be able to lift 20 lb weighted box with minimal to no pain LTG Duration 11/23/22 1 Impairment Pt unable to raise left arm past 90 degrees without pain. Short Term Goal (STG) Left shld abd/ flex will improve to > = 100 degrees with pain <= 4/10. STG Duration 10/05/22 Care Home Goal (LTG) Left shld abd/ flex will improve to WNL degrees with minimal to no left shld pain. LTG Duration 11/23/22 Assessment Summary Assessment Pt is making progress with symptoms however left shoulder ant/tilt and depression due to weakness still apparent. Physical Therapy Plan Frequency and Duration Frequency of Treatment 1-2 x/ wk Duration of treatment (weeks) 12 Plan of Care Start Date 08/24/22 Plan of Care End Date 11/23/22 Therapeutic Interventions Therapeutic Interventions Balance Training,Coordination Training,Gait Training,Home Exercise Program,Joint Mobilizations,Manual Therapy, Neuromuscular Re-education, Orthotic/Prosthetic Management ,Patient/Caregiver Education, Self-Care/Home Management, Sensory Integration,Taping, Therapeutic Activities, Therapeutic Exercises Other Therapeutic Interventions hot packs , cold packs, u/s screen for ESTIM Next Visit Focus/Plan Next Visit Plan Manual therapy AMY er/ ir: nellie
--- NOTE | 2022-09-26 12:00 | PT.OTN ---
Current Diagnoses Other specific arthropathies, not elsewhere classified, left shoulder (09/26/22) Unspecified rotator cuff tear or rupture of left shoulder, not specified as traumatic (09/26/22) Physical Therapy Treatment Note PT-OP-A Visit Information Start: 08/24/22 08:13 Freq: Status: Active Protocol: Document 09/26/22 10:31 SW (Rec: 09/26/22 12:00 [id number]) Out-Patient Physical Therapy Visit Information Visit Information Visit Type Treatment Note Visit Start Time 10:30 Visit Stop Time 11:10 Total Visit Minutes 40 Visit Number 5 Number of ALUMINUM POOL INSTALLER Visits 1 PT-OP-B Current Condition Start: 08/24/22 08:13 Freq: Status: Active Protocol: Document 08/24/22 08:14 TH (Rec: 08/24/22 11:36 TH [id number]) Current Condition History of Current Condition History of Current Condition Pt reports left shoulder pain started about 2 months ago. He had awakened from a nap when he noticed left shoulder pain. Pt attends a [employer] fitness class and therefore his ROM has been pretty good. Pain described as an ache and needle stick pain with movement past 90 degrees. 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 Prior Functional Status Baseline Function- ADL's Independent Baseline Function- Mobility Independent Baseline Function- Other Does [employer] ex class weekly PT-OP-C Subjective Start: 08/24/22 08:13 Freq: Status: Active Protocol: Document 09/26/22 10:31 SW (Rec: 09/26/22 12:00 [id number]) OP-PT Subjective Patient Comments Patient Comments Pt reports he is seeing good progress with his shoulder. He is still having difficulty reaching up for exercises/ADLs but he feels it is improving. Patient Reported Progress Improving PT-OP-E Functional Tests Start: 08/24/22 08:13 Freq: Status: Active Protocol: Document 08/24/22 08:14 TH (Rec: 08/24/22 11:36 TH [id number]) Functional Tests Other Quick Dash Score 27 PT-OP-K Range of Motion Start: 08/24/22 08:13 Freq: Status: Active Protocol: Document 08/24/22 08:14 TH (Rec: 08/24/22 11:36 TH [id number]) Shoulder Goniometric Range of Motion Shoulder left Testing Position Standing Flexion 95 Abduction 89 External Rotation at 0 degrees Abduction 86 Internal Rotation Behind Back (text) L4 Comments Right trunk concave, forward rot left trunk, ant transition of left humeral head, ant tilt left scapula, winging left scap. Palpation: No tenderness to touch except left pec / RTC tendons PT-OP-L Special Tests Start: 08/24/22 08:13 Freq: Status: Active Protocol: Document 08/24/22 08:14 TH (Rec: 08/24/22 11:36 TH [id number]) Special Tests Shoulder Special Tests subscapularis belly pres test Comments neg. Neer Impingement Comments pos PT-OP-Q Treatments Start: 08/24/22 08:13 Freq: Status: Active Protocol: Document 09/26/22 10:31 SW (Rec: 09/26/22 12:00 [id number]) Therapeutic Exercises Supine Exercises Serratus Punches Supine Exercise Name Serratus Punches Side left Resistance No weight>2 lbs Equipment Used weight Reps/Minutes 2 x 10 Comments VC for scapula Sitting Exercises Shldr ER Sitting Exercise Name Shoulder ER Comments tactile cues for, scapular setting and correct mm activation scap retraction Side bilateral Reps/Minutes 5 SH x10 Comments verbal/tactile cues for posture Standing Exercises Pec Stretch Standing Exercise Name Corner pec stretch Side bilateral Reps/Minutes 2 x 30 sec Comments Scapular setting prior to stretch, chin tuck Wall serratus Standing Exercise Name Serratus forearm pushup @ wall Side bilateral Reps/Minutes 3 SH x10 Comments VC for posture, core activation shoulder row Side bilateral Resistance [place] Tb Reps/Minutes x10 Comments initial cues for scapular setting and chin tuck ff, abd Standing Exercise Name FF, abd Side left Reps/Minutes x 5 each Comments required ER of shldr to avoid impingement Manual Therapy Treatment Manual Traction GHJ long axis distraction Details LUE Body Position Supine Reps/Duration 3 x 30 sec Comments good response. Manual Techniques GHJ mob Body Location LUE Body Position Supine Comments Left GHJ glides post., inf., ant. PT-OP-T Assessment and Plan Start: 08/24/22 08:13 Freq: Status: Active Protocol: Document 09/26/22 10:31 SW (Rec: 09/26/22 12:00 [id number]) Physical Therapy Assessment Goals 3 Impairment Ant tilt left scapula Short Term Goal (STG) Left scapular ant tilt will improve by 50 %. STG Duration 10/05/22 Faith Healer Goal (LTG) Left scapular ant tilt will imprpve by 100% LTG Duration 11/23/22 2 Impairment Pain with lifting weighted objects Short Term Goal (STG) Pt will be able to lift 10 lb weighted box with pain < =4/10 . STG Duration 10/05/22 Alf Goal (LTG) Pt will be able to lift 20 lb weighted box with minimal to no pain LTG Duration 11/23/22 1 Impairment Pt unable to raise left arm past 90 degrees without pain. Short Term Goal (STG) Left shld abd/ flex will improve to > = 100 degrees with pain <= 4/10. STG Duration 10/05/22 Faith Healer Goal (LTG) Left shld abd/ flex will improve to WNL degrees with minimal to no left shld pain. LTG Duration 11/23/22 Assessment Summary Assessment Pt is still feeling impingement in L shldr when raising LUE, placed patient in slight ER and no impingement present. Educated patient on mechanics of the shoulder complex, and how the strengthening exercises being prescribed will benefit the stability of the shoulder complex, and assist in improving discomfort with overhead reaching. Pt reported discomfort with wall slides HEP, demonstrated lateral L elbow shift during exercise, causing slight IR of the shoulder, corrected alignment and that eliminated the impingement symptoms. Patient has been compliant with HEP and continues to do silver sneakers, pt feels with education he has received and continuation of an HEP he may be ready to discuss potential discharge date sooner than anticipated. Recommend reviewing patients HEP. Physical Therapy Plan Frequency and Duration Frequency of Treatment 1-2 x/ wk Duration of treatment (weeks) 12 Plan of Care Start Date 08/24/22 Plan of Care End Date 11/23/22 Therapeutic Interventions Therapeutic Interventions Balance Training,Coordination Training,Gait Training,Home Exercise Program,Joint Mobilizations,Manual Therapy, Neuromuscular Re-education, Orthotic/Prosthetic Management ,Patient/Caregiver Education, Self-Care/Home Management, Sensory Integration,Taping, Therapeutic Activities, Therapeutic Exercises Other Therapeutic Interventions hot packs , cold packs, u/s screen for ESTIM Next Visit Focus/Plan Next Visit Plan Scapular stability for anterior tilting and winging of the scapula manual therapy as needed
--- NOTE | 2022-09-26 15:20 | PT.OTN ---
Current Diagnoses Other specific arthropathies, not elsewhere classified, left shoulder (09/26/22) Unspecified rotator cuff tear or rupture of left shoulder, not specified as traumatic (09/26/22) Physical Therapy Treatment Note PT-OP-A Visit Information Start: 08/24/22 08:13 Freq: Status: Active Protocol: Document 09/26/22 10:31 SW (Rec: 09/26/22 12:00 [id number]) Out-Patient Physical Therapy Visit Information Visit Information Visit Type Treatment Note Visit Start Time 10:30 Visit Stop Time 11:10 Total Visit Minutes 40 Visit Number 5 Number of FUNERAL PRE ARRANGEMENT COUNSELOR Visits 1 PT-OP-B Current Condition Start: 08/24/22 08:13 Freq: Status: Active Protocol: Document 08/24/22 08:14 TH (Rec: 08/24/22 11:36 TH [id number]) Current Condition History of Current Condition History of Current Condition Pt reports left shoulder pain started about 2 months ago. He had awakened from a nap when he noticed left shoulder pain. Pt attends a [employer] fitness class and therefore his ROM has been pretty good. Pain described as an ache and needle stick pain with movement past 90 degrees. 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 Prior Functional Status Baseline Function- ADL's Independent Baseline Function- Mobility Independent Baseline Function- Other Does [employer] ex class weekly PT-OP-C Subjective Start: 08/24/22 08:13 Freq: Status: Active Protocol: Document 09/26/22 10:31 SW (Rec: 09/26/22 12:00 [id number]) OP-PT Subjective Patient Comments Patient Comments Pt reports he is seeing good progress with his shoulder. He is still having difficulty reaching up for exercises/ADLs but he feels it is improving. Patient Reported Progress Improving PT-OP-E Functional Tests Start: 08/24/22 08:13 Freq: Status: Active Protocol: Document 08/24/22 08:14 TH (Rec: 08/24/22 11:36 TH [id number]) Functional Tests Other Quick Dash Score 27 PT-OP-K Range of Motion Start: 08/24/22 08:13 Freq: Status: Active Protocol: Document 08/24/22 08:14 TH (Rec: 08/24/22 11:36 TH [id number]) Shoulder Goniometric Range of Motion Shoulder left Testing Position Standing Flexion 95 Abduction 89 External Rotation at 0 degrees Abduction 86 Internal Rotation Behind Back (text) L4 Comments Right trunk concave, forward rot left trunk, ant transition of left humeral head, ant tilt left scapula, winging left scap. Palpation: No tenderness to touch except left pec / RTC tendons PT-OP-L Special Tests Start: 08/24/22 08:13 Freq: Status: Active Protocol: Document 08/24/22 08:14 TH (Rec: 08/24/22 11:36 TH [id number]) Special Tests Shoulder Special Tests subscapularis belly pres test Comments neg. Neer Impingement Comments pos PT-OP-Q Treatments Start: 08/24/22 08:13 Freq: Status: Active Protocol: Document 09/26/22 10:31 SW (Rec: 09/26/22 12:00 [id number]) Therapeutic Exercises Supine Exercises Serratus Punches Supine Exercise Name Serratus Punches Side left Resistance No weight>2 lbs Equipment Used weight Reps/Minutes 2 x 10 Comments VC for scapula Sitting Exercises Shldr ER Sitting Exercise Name Shoulder ER Comments tactile cues for, scapular setting and correct mm activation scap retraction Side bilateral Reps/Minutes 5 SH x10 Comments verbal/tactile cues for posture Standing Exercises Pec Stretch Standing Exercise Name Corner pec stretch Side bilateral Reps/Minutes 2 x 30 sec Comments Scapular setting prior to stretch, chin tuck Wall serratus Standing Exercise Name Serratus forearm pushup @ wall Side bilateral Reps/Minutes 3 SH x10 Comments VC for posture, core activation shoulder row Side bilateral Resistance [place] Tb Reps/Minutes x10 Comments initial cues for scapular setting and chin tuck ff, abd Standing Exercise Name FF, abd Side left Reps/Minutes x 5 each Comments required ER of shldr to avoid impingement Manual Therapy Treatment Manual Traction GHJ long axis distraction Details LUE Body Position Supine Reps/Duration 3 x 30 sec Comments good response. Manual Techniques GHJ mob Body Location LUE Body Position Supine Comments Left GHJ glides post., inf., ant. PT-OP-T Assessment and Plan Start: 08/24/22 08:13 Freq: Status: Active Protocol: Document 09/26/22 10:31 SW (Rec: 09/26/22 12:00 [id number]) Physical Therapy Assessment Goals 3 Impairment Ant tilt left scapula Short Term Goal (STG) Left scapular ant tilt will improve by 50 %. STG Duration 10/05/22 Neck Band Setter Goal (LTG) Left scapular ant tilt will imprpve by 100% LTG Duration 11/23/22 2 Impairment Pain with lifting weighted objects Short Term Goal (STG) Pt will be able to lift 10 lb weighted box with pain < =4/10 . STG Duration 10/05/22 Senior Living Goal (LTG) Pt will be able to lift 20 lb weighted box with minimal to no pain LTG Duration 11/23/22 1 Impairment Pt unable to raise left arm past 90 degrees without pain. Short Term Goal (STG) Left shld abd/ flex will improve to > = 100 degrees with pain <= 4/10. STG Duration 10/05/22 Neck Band Setter Goal (LTG) Left shld abd/ flex will improve to WNL degrees with minimal to no left shld pain. LTG Duration 11/23/22 Assessment Summary Assessment Pt is still feeling impingement in L shldr when raising LUE, placed patient in slight ER and no impingement present. Educated patient on mechanics of the shoulder complex, and how the strengthening exercises being prescribed will benefit the stability of the shoulder complex, and assist in improving discomfort with overhead reaching. Pt reported discomfort with wall slides HEP, demonstrated lateral L elbow shift during exercise, causing slight IR of the shoulder, corrected alignment and that eliminated the impingement symptoms. Patient has been compliant with HEP and continues to do silver sneakers, pt feels with education he has received and continuation of an HEP he may be ready to discuss potential discharge date sooner than anticipated. Recommend reviewing patients HEP. Physical Therapy Plan Frequency and Duration Frequency of Treatment 1-2 x/ wk Duration of treatment (weeks) 12 Plan of Care Start Date 08/24/22 Plan of Care End Date 11/23/22 Therapeutic Interventions Therapeutic Interventions Balance Training,Coordination Training,Gait Training,Home Exercise Program,Joint Mobilizations,Manual Therapy, Neuromuscular Re-education, Orthotic/Prosthetic Management ,Patient/Caregiver Education, Self-Care/Home Management, Sensory Integration,Taping, Therapeutic Activities, Therapeutic Exercises Other Therapeutic Interventions hot packs , cold packs, u/s screen for ESTIM Next Visit Focus/Plan Next Visit Plan Scapular stability for anterior tilting and winging of the scapula manual therapy as needed
--- NOTE | 2022-10-02 12:21 | PT.OTN ---
Current Diagnoses Other specific arthropathies, not elsewhere classified, left shoulder (10/02/22) Unspecified rotator cuff tear or rupture of left shoulder, not specified as traumatic (10/02/22) Physical Therapy Treatment Note PT-OP-A Visit Information Start: 08/24/22 08:13 Freq: Status: Active Protocol: Document 10/02/22 09:15 SW (Rec: 10/02/22 10:28 [id number]) Out-Patient Physical Therapy Visit Information Visit Information Visit Type Treatment Note Visit Start Time 09:15 Visit Stop Time 10:00 Total Visit Minutes 45 Visit Number 6 Number of STOCK TURNER Visits 2 PT-OP-B Current Condition Start: 08/24/22 08:13 Freq: Status: Active Protocol: Document 08/24/22 08:14 TH (Rec: 08/24/22 11:36 TH [id number]) Current Condition History of Current Condition History of Current Condition Pt reports left shoulder pain started about 2 months ago. He had awakened from a nap when he noticed left shoulder pain. Pt attends a [employer] fitness class and therefore his ROM has been pretty good. Pain described as an ache and needle stick pain with movement past 90 degrees. 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 Prior Functional Status Baseline Function- ADL's Independent Baseline Function- Mobility Independent Baseline Function- Other Does [employer] ex class weekly PT-OP-C Subjective Start: 08/24/22 08:13 Freq: Status: Active Protocol: Document 10/02/22 09:15 SW (Rec: 10/02/22 10:28 [id number]) OP-PT Subjective Patient Comments Patient Comments Pt reports he still gets the catching with overhead reaching. It is not painful, just feels like it gets stuck. He reports that he feels it is improving since coming to PT. Patient Reported Progress Improving PT-OP-E Functional Tests Start: 08/24/22 08:13 Freq: Status: Active Protocol: Document 08/24/22 08:14 TH (Rec: 08/24/22 11:36 TH [id number]) Functional Tests Other Quick Dash Score 27 PT-OP-K Range of Motion Start: 08/24/22 08:13 Freq: Status: Active Protocol: Document 08/24/22 08:14 TH (Rec: 08/24/22 11:36 TH [id number]) Shoulder Goniometric Range of Motion Shoulder left Testing Position Standing Flexion 95 Abduction 89 External Rotation at 0 degrees Abduction 86 Internal Rotation Behind Back (text) L4 Comments Right trunk concave, forward rot left trunk, ant transition of left humeral head, ant tilt left scapula, winging left scap. Palpation: No tenderness to touch except left pec / RTC tendons PT-OP-L Special Tests Start: 08/24/22 08:13 Freq: Status: Active Protocol: Document 08/24/22 08:14 TH (Rec: 08/24/22 11:36 TH [id number]) Special Tests Shoulder Special Tests subscapularis belly pres test Comments neg. Neer Impingement Comments pos PT-OP-Q Treatments Start: 08/24/22 08:13 Freq: Status: Active Protocol: Document 10/02/22 09:15 SW (Rec: 10/02/22 10:28 SW [id number]) Therapeutic Exercises Sitting Exercises Shldr ER Sitting Exercise Name Shoulder ER Side left Resistance [place] TB Reps/Minutes x10 Comments tactile cues for, scapular setting and correct mm activation Standing Exercises Lat pull down Standing Exercise Name Lat pull down Rows Resistance [place] TB Reps/Minutes 2 x 10 Iso ER/IR Standing Exercise Name Shldr ER/IR Resistance [place] TB Reps/Minutes 2x10 each Wall serratus Standing Exercise Name Serratus forearm pushup @ wall Side bilateral Reps/Minutes 3 SH x10 shoulder extension Side bilateral Resistance [place] Tb Reps/Minutes x10 Comments initial cues for scapular setting and chin tuck shoulder row Side bilateral Resistance [place] Tb Reps/Minutes 2x10 Comments initial cues for scapular setting and chin tuck Other Exercises Pulleys Other Exercise Name Pulleys scaption, abduction Side bilateral Resistance AROM Equipment Used Ball, thoracic to facilitate good posture Reps/Minutes 2x10 Comments Pain free range, postural cues Manual Therapy Treatment Manual Traction GHJ long axis distraction Details LUE Body Position Supine Reps/Duration 3 x 30 sec Comments good response. Manual Techniques L scapulothoracic Type L scapulothoracic facilitation , w/ patient AROM Abd Reps/Duration x5 GHJ mob Body Location LUE Body Position Supine Comments Left GHJ glides post., inf., ant. Self-Care/Home Management Treatment Education Patient Education Joint Protection,Pain Management,Posture Other Education Educated patient on sleep positions. PT-OP-T Assessment and Plan Start: 08/24/22 08:13 Freq: Status: Active Protocol: Document 10/02/22 09:15 (Rec: 10/02/22 10:28 [id number]) Physical Therapy Assessment Goals 3 Impairment Ant tilt left scapula Short Term Goal (STG) Left scapular ant tilt will improve by 50 %. STG Duration 10/05/22 Alf Goal (LTG) Left scapular ant tilt will imprpve by 100% LTG Duration 11/23/22 2 Impairment Pain with lifting weighted objects Short Term Goal (STG) Pt will be able to lift 10 lb weighted box with pain < =4/10 . STG Duration 10/05/22 Alf Goal (LTG) Pt will be able to lift 20 lb weighted box with minimal to no pain LTG Duration 11/23/22 1 Impairment Pt unable to raise left arm past 90 degrees without pain. Short Term Goal (STG) Left shld abd/ flex will improve to > = 100 degrees with pain <= 4/10. STG Duration 10/05/22 Alf Goal (LTG) Left shld abd/ flex will improve to WNL degrees with minimal to no left shld pain. LTG Duration 11/23/22 Assessment Summary Assessment Continued with Shoulder strengthening today to progress toward goal with overhead reaching. Palpable strength deficits with RC exercises. Trialed isometric shldr IR/ER d/t compensations with AROM strengthening. Assessed ROM in L shldr, anatomical position 100 degrees, improved range with scapular facilitation while patient was actively raising LUE. Patient reports that he has been compliant with HEP, asked him to bring the exercises he has been doing next session for review. He feels he has improved since starting PT and would like to discuss, discussed with patient his goals , recommend further review of those and his progress toward with discussion of d/c PT per patient. Physical Therapy Plan Frequency and Duration Frequency of Treatment 1-2 x/ wk Duration of treatment (weeks) 12 Plan of Care Start Date 08/24/22 Plan of Care End Date 11/23/22 Therapeutic Interventions Therapeutic Interventions Balance Training,Coordination Training,Gait Training,Home Exercise Program,Joint Mobilizations,Manual Therapy, Neuromuscular Re-education, Orthotic/Prosthetic Management ,Patient/Caregiver Education, Self-Care/Home Management, Sensory Integration,Taping, Therapeutic Activities, Therapeutic Exercises Other Therapeutic Interventions hot packs , cold packs, u/s screen for ESTIM Next Visit Focus/Plan Next Visit Plan Scapular stability for anterior tilting and winging of the scapula Possibly discuss KT taping for L RC and and postural facilitation.
--- NOTE | 2022-10-04 08:15 | PT.OTN ---
Current Diagnoses Other specific arthropathies, not elsewhere classified, left shoulder (10/04/22) Unspecified rotator cuff tear or rupture of left shoulder, not specified as traumatic (10/04/22) Physical Therapy Treatment Note PT-OP-A Visit Information Start: 08/24/22 08:13 Freq: Status: Active Protocol: Document 10/04/22 07:33 SP (Rec: 10/04/22 08:19 SP [id number]) Out-Patient Physical Therapy Visit Information Visit Information Visit Type Treatment Note Visit Start Time 07:33 Visit Stop Time 08:15 Total Visit Minutes 42 Visit Number 7 Number of TELECOM ANALYST Visits 3 PT-OP-B Current Condition Start: 08/24/22 08:13 Freq: Status: Active Protocol: Document 08/24/22 08:14 TH (Rec: 08/24/22 11:36 TH [id number]) Current Condition History of Current Condition History of Current Condition Pt reports left shoulder pain started about 2 months ago. He had awakened from a nap when he noticed left shoulder pain. Pt attends a [employer] fitness class and therefore his ROM has been pretty good. Pain described as an ache and needle stick pain with movement past 90 degrees. 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 Prior Functional Status Baseline Function- ADL's Independent Baseline Function- Mobility Independent Baseline Function- Other Does [employer] ex class weekly PT-OP-C Subjective Start: 08/24/22 08:13 Freq: Status: Active Protocol: Document 10/04/22 07:33 SP (Rec: 10/04/22 08:19 SP [id number]) OP-PT Subjective Patient Comments Patient Comments Pt reports feels his exercises are helping ROM and attend [employer] with ability to do normal ADLs with less instances of anterior L shld pinching into scaption ROM, only occasional. He feels doing well enough to continue on own. Patient Reported Progress Improving PT-OP-E Functional Tests Start: 08/24/22 08:13 Freq: Status: Active Protocol: Document 08/24/22 08:14 TH (Rec: 08/24/22 11:36 TH [id number]) Functional Tests Other Quick Dash Score 27 PT-OP-K Range of Motion Start: 08/24/22 08:13 Freq: Status: Active Protocol: Document 10/04/22 07:33 SP (Rec: 10/04/22 08:19 SP [id number]) Shoulder Goniometric Range of Motion Shoulder left Testing Position Standing Flexion 155 Abduction 158 External Rotation at 0 degrees Abduction 86 Internal Rotation Behind Back (text) T9 Comments L shld AROM: FF gained 60 deg painfree -142 deg ABD gained 69 deg painfree if ER UE -158 deg ER same -85 deg 86 Deg IR behind back: gained 4 vertebra ROM -T9 PT-OP-L Special Tests Start: 08/24/22 08:13 Freq: Status: Active Protocol: Document 08/24/22 08:14 TH (Rec: 08/24/22 11:36 TH [id number]) Special Tests Shoulder Special Tests subscapularis belly pres test Comments neg. Neer Impingement Comments pos PT-OP-Q Treatments Start: 08/24/22 08:13 Freq: Status: Active Protocol: Document 10/04/22 07:33 SP (Rec: 10/04/22 08:19 SP [id number]) Therapeutic Exercises Standing Exercises lifting wt from floor Standing Exercise Name goal assessment Resistance 25# DB over garbage can height from floor Reps/Minutes 2 min Comments cued scap retraction stability - painfree Eccentric FF, ABD Standing Exercise Name added to HEP Side left Resistance TB #3 Reps/Minutes x10 reps each Comments cued scap Iso ER/IR Standing Exercise Name Shldr ER/IR Resistance [place] TB Reps/Minutes 2x10 each Comments cued step out to challenge then reactive slow but quicker mvt- good painfre Wall serratus Standing Exercise Name Serratus forearm pushup @ wall Side bilateral Equipment Used discussed doing well Reps/Minutes 3 SH x10 Comments continue HEP ff, abd Standing Exercise Name FF, abd Side left Equipment Used painfree w/ ER Reps/Minutes x 5 each Comments required ER of shldr to avoid impingement- good form Other Exercises d2 in supine Other Exercise Name FF, ABD, scaption- HEP review and progress Equipment Used continue, progress to standing after gain eccentric AAROM each direction Reps/Minutes 10 each Comments good understanding form and progression PT-OP-T Assessment and Plan Start: 08/24/22 08:13 Freq: Status: Active Protocol: Document 10/04/22 07:33 SP (Rec: 10/04/22 08:19 SP [id number]) Physical Therapy Assessment Goals 3 Impairment Ant tilt left scapula Short Term Goal (STG) Left scapular ant tilt will improve by 50 %. 10/04/22: GOAL MET STG Duration 10/05/22 GOAL MET Log Handling Equipment Operator Goal (LTG) Left scapular ant tilt will imprpve by 100% 10/04/22: almost fully met: relaxed posture - 75% scap positioning, with cue for scap retraction/depress able maintain 100% no scapular tilting. LTG Duration 11/23/22 almost fully met 2 Impairment Pain with lifting weighted objects Short Term Goal (STG) Pt will be able to lift 10 lb weighted box with pain < =4/10 . 10/04/22: GOAL MET: able lift 25 # DB over waist height to chair to assimulate lifting dog food back into garbage bin performs at home, cued scap retraction support shld.- painfree. STG Duration 10/05/22 GOAL MET 10/04/22 Log Handling Equipment Operator Goal (LTG) Pt will be able to lift 20 lb weighted box with minimal to no pain 10/04/22: GOAL MET: able lift 25 # DB over waist height to chair to assimulate lifting dog food back into garbage bin performs at home, cued scap retraction support shld.- painfree. LTG Duration 11/23/22 GOAL MET 10/04/22 1 Impairment Pt unable to raise left arm past 90 degrees without pain. Short Term Goal (STG) Left shld abd/ flex will improve to > = 100 degrees with pain <= 4/10. 10/04/22: GOAL MET see measurements STG Duration 10/05/22 GOAL MET Log Handling Equipment Operator Goal (LTG) Left shld abd/ flex will improve to WNL degrees with minimal to no left shld pain. 10/04/22: progressed well, not fully met, see measurements. LTG Duration 11/23/22 not fully met 10/04/22 Progress Towards Goals Progress Comments L shld AROM: FF gained 60 deg painfree -142 deg ABD gained 69 deg painfree if ER UE -158 deg ER same -85 deg 86 Deg IR behind back: gained 4 vertebra ROM -T9 Assessment Summary Assessment Pt good response to HEP review and added eccentric FF, ABD support to gain increased AROM with self humeral inferior glide painfree. Pt made significant gains in AROM, see measurements and feels ready to continue on his own. Discussed progression use TB seated FF/ ABD/scaption supine , seated, standing with good understanding. Pt welcoming to schedule 1 more appt with PT to assess and finalize HEP to continue silver sneakers and own before DC. Physical Therapy Plan Frequency and Duration Frequency of Treatment 1-2 x/ wk Duration of treatment (weeks) 12 Plan of Care Start Date 08/24/22 Plan of Care End Date 11/23/22 Therapeutic Interventions Therapeutic Interventions Balance Training,Coordination Training,Gait Training,Home Exercise Program,Joint Mobilizations,Manual Therapy, Neuromuscular Re-education, Orthotic/Prosthetic Management ,Patient/Caregiver Education, Self-Care/Home Management, Sensory Integration,Taping, Therapeutic Activities, Therapeutic Exercises Other Therapeutic Interventions hot packs , cold packs, u/s screen for ESTIM Next Visit Focus/Plan Next Note Type Discharge Summary Next Visit Plan Finalize HEP, assess response to added eccentric FF, ABD with TB support and understanding how to progress. Updated notes on self handouts. DC after next tx.
--- NOTE | 2022-10-09 15:00 | PT.OTN ---
Current Diagnoses Other specific arthropathies, not elsewhere classified, left shoulder (10/09/22) Unspecified rotator cuff tear or rupture of left shoulder, not specified as traumatic (10/09/22) Physical Therapy Treatment Note PT-OP-A Visit Information Start: 08/24/22 08:13 Freq: Status: Active Protocol: Document 10/09/22 14:20 [facility] (Rec: 10/09/22 15:00 [facility] [id number]) Out-Patient Physical Therapy Visit Information Visit Information Visit Type Treatment Note Visit Start Time 14:16 Visit Stop Time 15:00 Total Visit Minutes 44 Visit Number 8 Number of [employer] MILLWRIGHT Visits 0 PT-OP-B Current Condition Start: 08/24/22 08:13 Freq: Status: Active Protocol: Document 08/24/22 08:14 TH (Rec: 08/24/22 11:36 TH [id number]) Current Condition History of Current Condition History of Current Condition Pt reports left shoulder pain started about 2 months ago. He had awakened from a nap when he noticed left shoulder pain. Pt attends a [employer] fitness class and therefore his ROM has been pretty good. Pain described as an ache and needle stick pain with movement past 90 degrees. 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 Prior Functional Status Baseline Function- ADL's Independent Baseline Function- Mobility Independent Baseline Function- Other Does [employer] ex class weekly PT-OP-C Subjective Start: 08/24/22 08:13 Freq: Status: Active Protocol: Document 10/09/22 14:20 [facility] (Rec: 10/09/22 15:00 AM[facility] [id number]) OP-PT Subjective Patient Comments Patient Comments pt notes he is exerciseing at the pool three times per week. He notes if he reaches out sometimes he can feel a twinge but he is working on keepingis shoulder in the right position PT-OP-E Functional Tests Start: 08/24/22 08:13 Freq: Status: Active Protocol: Document 08/24/22 08:14 TH (Rec: 08/24/22 11:36 TH [id number]) Functional Tests Other Quick Dash Score 27 PT-OP-K Range of Motion Start: 08/24/22 08:13 Freq: Status: Active Protocol: Document 10/04/22 07:33 SP (Rec: 10/04/22 08:19 SP [id number]) Shoulder Goniometric Range of Motion Shoulder left Testing Position Standing Flexion 155 Abduction 158 External Rotation at 0 degrees Abduction 86 Internal Rotation Behind Back (text) T9 Comments L shld AROM: FF gained 60 deg painfree -142 deg ABD gained 69 deg painfree if ER UE -158 deg ER same -85 deg 86 Deg IR behind back: gained 4 vertebra ROM -T9 PT-OP-L Special Tests Start: 08/24/22 08:13 Freq: Status: Active Protocol: Document 08/24/22 08:14 TH (Rec: 08/24/22 11:36 TH [id number]) Special Tests Shoulder Special Tests subscapularis belly pres test Comments neg. Neer Impingement Comments pos PT-OP-Q Treatments Start: 08/24/22 08:13 Freq: Status: Active Protocol: Document 10/09/22 14:20 [facility] (Rec: 10/09/22 15:00 AM[facility] [id number]) Therapeutic Exercises Supine Exercises Serratus Punches Reps/Minutes x20 reps FF, ABD Supine Exercise Name HEP Side left Resistance AROM>AAROM Reps/Minutes x5 AROM, x10 AAROM serratus press Supine Exercise Name HEP Side left Resistance AROM Reps/Minutes x10 Comments cues for scap setting and chin tuck Sidelying Exercises open book Sidelying Exercise Name in PT clinic, recheck next tx for HEP Side left Reps/Minutes 10 reps Comments cues verbal and tactile for scapular glide and no [place] recruitment Standing Exercises lifting wt from floor Standing Exercise Name goal assessment Resistance 25# DB over garbage can height from floor Reps/Minutes 2 min Comments cued scap retraction stability - painfree Eccentric FF, ABD Standing Exercise Name added to HEP Side left Resistance TB #3 Reps/Minutes x10 reps each Comments cued scap Wall serratus Standing Exercise Name Serratus forearm pushup @ wall Side bilateral Equipment Used discussed doing well Reps/Minutes 3 SH x10 Comments continue HEP PT-OP-T Assessment and Plan Start: 08/24/22 08:13 Freq: Status: Active Protocol: Document 10/09/22 14:20 [facility] (Rec: 10/09/22 15:00 AM[facility] [id number]) Physical Therapy Assessment Goals 3 Impairment Ant tilt left scapula Short Term Goal (STG) Left scapular ant tilt will improve by 50 %. 10/04/22: GOAL MET STG Duration 10/05/22 GOAL MET Assisted Goal (LTG) Left scapular ant tilt will imprpve by 100% 10/04/22: almost fully met: relaxed posture - 75% scap positioning, with cue for scap retraction/depress able maintain 100% no scapular tilting. LTG Duration 11/23/22 almost fully met 2 Impairment Pain with lifting weighted objects Short Term Goal (STG) Pt will be able to lift 10 lb weighted box with pain < =4/10 . 10/04/22: GOAL MET: able lift 25 # DB over waist height to chair to assimulate lifting dog food back into garbage bin performs at home, cued scap retraction support shld.- painfree. STG Duration 10/05/22 GOAL MET 10/04/22 Assisted Goal (LTG) Pt will be able to lift 20 lb weighted box with minimal to no pain 10/04/22: GOAL MET: able lift 25 # DB over waist height to chair to assimulate lifting dog food back into garbage bin performs at home, cued scap retraction support shld.- painfree. LTG Duration 11/23/22 GOAL MET 10/04/22 1 Impairment Pt unable to raise left arm past 90 degrees without pain. Short Term Goal (STG) Left shld abd/ flex will improve to > = 100 degrees with pain <= 4/10. 10/04/22: GOAL MET see measurements STG Duration 10/05/22 GOAL MET Sports Medicine Physician Goal (LTG) Left shld abd/ flex will improve to WNL degrees with minimal to no left shld pain. 10/04/22: progressed well, not fully met, see measurements. LTG Duration 11/23/22 not fully met 10/04/22 Assessment Summary Assessment Pt has had a good response to his home exercise program. His exercises were reviewed today and he shows good understanding of his program. He will be discharged to a [facility] at this time Physical Therapy Plan Discharge Physical Therapy Discharge Reasons Goals Met Discharge Comments DC PT to a [facility]
== END 2022-10-10 15:07 | disposition home or self-care (01) ==
LOC: PHYS 14:15
PROVIDERS: Family Provider Student in an Organized Health Care Education/Training Program; PCP Student in an Organized Health Care Education/Training Program; Referring Provider Student in an Organized Health Care Education/Training Program; Visit Provider Student in an Organized Health Care Education/Training Program
DX: M75.102 Unspecified rotator cuff tear or rupture of left shoulder, not specified as traumatic (principal); M12.812 Other specific arthropathies, not elsewhere classified, left shoulder
CPT/HCPCS: 97110; 97140; 97161

== ENCOUNTER → 2023-04-02 07:15 | Outpatient (CLI) | payer MEDICARE, BC, SELFPAY ==
[2023-04-02 08:27] LABS: Add Manual Diff / Slide Review NO; Basophils Absolute Auto 100 /uL (0-100); Basophils Percent Auto 1.3 % (0-2); Eosinophils Absolute Auto 300 /uL (0-450); Eosinophils Percent Auto 6.8 % (2-4); Hematocrit 40.1 % (41-53); Hemoglobin 13.9 g/dL (13.5-17.5); Lymphocytes Absolute Auto 1100 /uL (1100-4500); Lymphocytes Percent Auto 24.5 % (25-40); Mean Corpuscular HGB Conc 34.6 % (30-36); Mean Corpuscular Hemoglobin 32.2 PG (26-34); Mean Corpuscular Volume 93.2 fL (80-100); Monocytes Absolute Auto 500 /uL (0-900); Monocytes Percent Auto 10.8 % (3-14); Neutrophils Absolute Auto 2600 /uL (1500-7000); Neutrophils Percent Auto 56.6 % (50-75); Platelet Count 182 X10^3/uL (150-400); Red Cell Distribution Width 12.9 % (11.6-14.8); White Blood Cell Count 4.5 X10^3/uL (4.5-11.0)
[2023-04-02 08:36] LABS: Alanine Aminotransferase 35 IU/L (<50); Albumin 4.2 g/dL (3.5-5.0); Albumin Globulin Ratio 1.6 (1.0-2.8); Alkaline Phosphatase 61 U/L (38-126); Aspartate Aminotransferase 37 IU/L (17-59); BUN Creatinine Ratio 17.1 (6-22); Bilirubin Total 1.4 mg/dL (0.2-1.3); Blood Urea Nitrogen 28 mg/dL (9-20); Calcium 9.6 mg/dL (8.4-10.2); Carbon Dioxide 26 mmol/L (22-32); Chloride 105 mmol/L (98-107); Cholesterol 118 mg/dL (140-199); Estimated Glomerular Filt Rate 43 mL/min (>60); Globulin 2.7 g/dL (1.7-4.1); Glucose 116 mg/dL (80-110); HDL Cholesterol 36 mg/dL (40-60); HEMOLYSIS < 15 (0-50); LDL Cholesterol Calculated 66 mg/dL (<100); Potassium 4.8 mmol/L (3.4-5.1); Sodium 138 mmol/L (137-145); Total Protein 6.9 g/dL (6.3-8.2); Triglycerides 81 mg/dL (35-150)
== END ==
PROVIDERS: Family Provider Student in an Organized Health Care Education/Training Program; PCP Family Medicine; Referring Provider Family Medicine; Visit Provider Family Medicine
DX: M10.9 Gout, unspecified (principal); N18.9 Chronic kidney disease, unspecified; Z12.5 Encounter for screening for malignant neoplasm of prostate; E78.00 Pure hypercholesterolemia, unspecified
CPT/HCPCS: 36415; 80053; 80061; 85025; G0103

== ENCOUNTER → 2023-07-24 15:33 | Outpatient (CLI) | payer MEDICARE, BC, SELFPAY ==
--- NOTE | 2023-07-24 15:35 | DI.US.S_ITS ---
PROCEDURE: US RENAL COMPLETE INDICATIONS: STAGE 3B CHRONIC KIDNEY DISEASE TECHNIQUE: Real-time scanning was performed of the kidneys and bladder, with image documentation. COMPARISON: None. FINDINGS: Kidneys: Kidneys are normal in size. Right kidney measures 9.6 cm long; left kidney measures 9.5 cm long. Right renal cortical thickness is 1.1 cm; left renal cortical thickness is 1.7 cm. Renal cortical echotexture is normal. No hydronephrosis or nephrolithiasis. No suspicious solid mass lesions. 8 mm left renal simple cortical cyst Bladder: Pre-void bladder volume is 503 mL. Post-void residual is 420 or mL. Pre-void images demonstrate no intraluminal masses or stones. On pre-void images, neither ureteral jets are noted with color Doppler interrogation. (Of note, ureteral jets may not be detectable in up to 25% of cases due to insufficient differences in specific gravity between ureteral and bladder urine). Miscellaneous: Hypertrophic prostate measures 6.9 x 6.1 x 5.0 cm IMPRESSION: Unremarkable renal ultrasound without hydronephrosis. Hypertrophic prostate associated with significant postvoid residual Approved by: Anselmo Briones M.D. on 07/24/2023 at 18:38
== END ==
LOC: US 15:34
PROVIDERS: Family Provider Student in an Organized Health Care Education/Training Program; PCP Family Medicine; Referring Provider Internal Medicine Nephrology; Visit Provider Internal Medicine Nephrology
DX: N18.32 Chronic kidney disease, stage 3b (principal); N40.1 Benign prostatic hyperplasia with lower urinary tract symptoms; N13.8 Other obstructive and reflux uropathy; E78.5 Hyperlipidemia, unspecified
CPT/HCPCS: 76770

== ENCOUNTER → 2023-09-19 16:22 | Outpatient (CLI) | payer MEDICARE, BC, SELFPAY ==
[2023-09-21 07:36] LABS: PSA Free % 27.5 % (.); PSA, Total 11.5 ng/mL (0.0-4.0)
== END ==
PROVIDERS: Family Provider Student in an Organized Health Care Education/Training Program; PCP Family Medicine; Referring Provider Family Medicine; Visit Provider Family Medicine
DX: R97.20 Elevated prostate specific antigen [PSA] (principal)
CPT/HCPCS: 36415; 84153; 84154

== ENCOUNTER → 2024-02-06 14:50 | Outpatient (CLI) | payer MEDICARE, BC, SELFPAY ==
--- NOTE | 2024-02-06 14:52 | DI.RAD.S_ITS ---
PROCEDURE: XR FEMUR LT MIN 2V INDICATIONS: Left hip and femur pain TECHNIQUE: 2 views of the femur were acquired. COMPARISON: None. FINDINGS: Bones: No fractures or dislocations. No suspicious bony lesions. Moderate hip and tricompartmental arthritic change within the knee. Soft tissues: No suspicious soft tissue calcifications or masses. Vascular calcifications are present. IMPRESSION: No acute bony abnormality. Dictated by: Bernarda Coates M.D. on 02/07/2024 at 11:13 Approved by: Bernarda Coates M.D. on 02/07/2024 at 11:14
--- NOTE | 2024-02-06 14:52 | DI.RAD.S_ITS ---
PROCEDURE: XR HIP W PEL IF DONE EMMETT MIN 4V INDICATIONS: Left hip and femur pain TECHNIQUE: AP pelvis with lateral view(s) of the bilateral hip(s). COMPARISON: None. FINDINGS: Bones: No fractures or dislocations. Pelvic ring appears intact. No suspicious bony lesions. Moderate bilateral degenerative hip joint space narrowing. Minimal periarticular osteophytes. No erosions. Soft tissues: The visualized bowel gas pattern is normal. No suspicious soft tissue calcifications. IMPRESSION: Moderate bilateral hip arthritic change. Dictated by: Bernarda Coates M.D. on 02/07/2024 at 11:13 Approved by: Bernarda Coates M.D. on 02/07/2024 at 11:13
== END ==
PROVIDERS: Family Provider Student in an Organized Health Care Education/Training Program; PCP Family Medicine; Referring Provider Physician Assistant; Visit Provider Physician Assistant
DX: M16.12 Unilateral primary osteoarthritis, left hip (principal); M89.8X5 Other specified disorders of bone, thigh; M25.552 Pain in left hip; I70.90 Unspecified atherosclerosis
CPT/HCPCS: 73522; 73552

== ENCOUNTER → 2024-06-30 13:32 | Outpatient (CLI) | payer MEDICARE, BC, SELFPAY ==
[2024-06-30 14:17] LABS: Appearance Urine UA CLEAR; Bilirubin Urine UA NEGATIVE (NEGATIVE); Color Urine UA YELLOW; Glucose Urine UA NEGATIVE (Negative); Ketones Urine UA NEGATIVE (NEGATIVE); Leukocyte Esterase Urine UA NEGATIVE (NEGATIVE); Nitrite Urine UA NEGATIVE (Negative); Occult Blood Urine UA NEGATIVE (Negative); Protein Urine UA NEGATIVE (Negative); Urobilinogen Urine UA 0.2 E.U./dL (0.2); pH Urine UA 5.5 (4.5-8.0)
[2024-06-30 14:29] LABS: Albumin 4.8 g/dL (3.5-5.0); BUN Creatinine Ratio 21.2 (6-22); Blood Urea Nitrogen 36 mg/dL (9-20); Calcium 9.5 mg/dL (8.4-10.2); Carbon Dioxide 26 mmol/L (22-32); Chloride 103 mmol/L (98-107); Estimated Glomerular Filt Rate 41 mL/min (>60); Glucose 110 mg/dL (80-110); HEMOLYSIS < 15 (0-50); Phosphorous 3.4 mg/dL (2.3-3.7); Potassium 4.7 mmol/L (3.4-5.1); Sodium 138 mmol/L (137-145)
[2024-06-30 14:33] LABS: Add Manual Diff / Slide Review NO; Basophils Absolute Auto 0 /uL (0-100); Basophils Percent Auto 0.5 % (0-2); Eosinophils Absolute Auto 200 /uL (0-450); Eosinophils Percent Auto 3.1 % (2-4); Hematocrit 42.6 % (41-53); Hemoglobin 14.8 g/dL (13.5-17.5); Lymphocytes Absolute Auto 1400 /uL (1100-4500); Lymphocytes Percent Auto 23.4 % (25-40); Mean Corpuscular HGB Conc 34.7 % (30-36); Mean Corpuscular Hemoglobin 32.7 PG (26-34); Mean Corpuscular Volume 94.3 fL (80-100); Monocytes Absolute Auto 600 /uL (0-900); Monocytes Percent Auto 9.8 % (3-14); Neutrophils Absolute Auto 3800 /uL (1500-7000); Neutrophils Percent Auto 63.2 % (50-75); Platelet Count 183 X10^3/uL (150-400); Red Blood Cell Count 4.52 X10^6/uL (4.5-5.9); Red Cell Distribution Width 12.9 % (11.6-14.8)
[2024-06-30 14:40] LABS: Bacteria Urine None Seen; Culture Indicated Urine Cult Not Indicated; RBC Urine None Seen (0-5/HPF); Squamous Epithelial Cell Urine 0-1 /HPF (0-5/HPF); Urine Volume 10mL (spun); WBC Urine None Seen (0-5/HPF)
[2024-06-30 15:40] LABS: Creatinine Urine Random 54.32 mg/dL; Protein (Total) Urine Random 19 mg/dL (0-12); Protein Creatinine Ratio Urine 0.34 GRAM/24H
[2024-06-30 15:46] LABS: Microalbumin Urine Random 4.6 mg/dL (0-1.6)
[2024-06-30 15:55] LABS: Vitamin D 25 Hydroxy (D3) 71.6 ng/mL (30.0-100.0)
[2024-07-02 09:39] LABS: Parathyroid Hormone Int 57 pg/mL (15-65)
== END ==
PROVIDERS: Family Provider Student in an Organized Health Care Education/Training Program; PCP Family Medicine; Referring Provider Internal Medicine Nephrology; Visit Provider Internal Medicine Nephrology
DX: N18.32 Chronic kidney disease, stage 3b (principal); N40.1 Benign prostatic hyperplasia with lower urinary tract symptoms; N13.8 Other obstructive and reflux uropathy; E78.5 Hyperlipidemia, unspecified
CPT/HCPCS: 36415; 80069; 81001; 82043; 82306; 82570; 83970; 84156; 85025

== ENCOUNTER → 2024-07-06 07:39 | Outpatient (CLI) | payer MEDICARE, BC, SELFPAY ==
--- NOTE | 2024-07-06 | DI.US.S_ITS ---
PROCEDURE: US RENAL COMPLETE INDICATIONS: STAGE 3B KD,PROSTATICHYPERPLASIA,HYPERLIPIDEMIA TECHNIQUE: Real-time scanning was performed of the kidneys and bladder, with image documentation. COMPARISON: [facility], , RENAL COMPLETE, 07/24/2023, 15:57. FINDINGS: Kidneys: Kidneys are normal in size. Right kidney measures 10.3 cm long; left kidney measures 9.8 cm long. Right renal cortical thickness is 1.0 cm; left renal cortical thickness is 1.4 cm. Renal cortical echotexture is normal. No hydronephrosis or nephrolithiasis. No suspicious solid mass lesions. Left renal simple cyst is increased in size measuring 1.8 cm, previously 0.8 cm. Bladder: Pre-void bladder volume is 227 mL. Post-void residual is 34 mL. Pre-void images demonstrate no intraluminal masses or stones. On pre-void images, bilateral ureteral jets are noted with color Doppler interrogation. (Of note, ureteral jets may not be detectable in up to 25% of cases due to insufficient differences in specific gravity between ureteral and bladder urine). Miscellaneous: No free pelvic fluid. Enlarged prostate measuring 6.6 x 7.6 x 6.1 cm is increased in size, previously 6.9 x 6.1 x 5.0 cm. IMPRESSION: 1. Enlarged prostate is increased in size compared to prior. 2. No significant postvoid residual. 3. Increased size of left renal simple cyst measuring 1.8 cm. Dictated by: Ender Quinones M.D. on 07/06/2024 at 10:47 Approved by: Ender Quinones M.D. on 07/06/2024 at 10:51
== END ==
PROVIDERS: Family Provider Student in an Organized Health Care Education/Training Program; PCP Family Medicine; Referring Provider Internal Medicine Nephrology; Visit Provider Internal Medicine Nephrology
DX: N18.32 Chronic kidney disease, stage 3b (principal); N40.1 Benign prostatic hyperplasia with lower urinary tract symptoms; N13.8 Other obstructive and reflux uropathy; N28.1 Cyst of kidney, acquired; E78.5 Hyperlipidemia, unspecified
CPT/HCPCS: 76770

== ENCOUNTER → 2024-12-30 10:28 | Outpatient (CLI) | payer MEDICARE, BC, SELFPAY ==
[2024-12-30 11:16] LABS: Hematocrit 39.6 % (41-53); Hemoglobin 13.9 g/dL (13.5-17.5); Mean Corpuscular HGB Conc 35.2 % (30-36); Mean Corpuscular Hemoglobin 32.8 PG (26-34); Mean Corpuscular Volume 93.4 fL (80-100); Platelet Count 169 X10^3/uL (150-400)
[2024-12-30 11:39] LABS: HEMOLYSIS < 15 (0-50)
[2024-12-30 11:41] LABS: Iron 124 ug/dL (49-181)
[2024-12-30 11:43] LABS: Albumin 4.4 g/dL (3.5-5.0); Blood Urea Nitrogen 30 mg/dL (9-20); Calcium 9.4 mg/dL (8.4-10.2); Carbon Dioxide 22 mmol/L (22-32); Chloride 106 mmol/L (98-107); Estimated Glomerular Filt Rate 41 mL/min (>60); Glucose 111 mg/dL (70-99); HEMOLYSIS < 15 (0-50); Phosphorous 3.1 mg/dL (2.3-3.7); Potassium 4.6 mmol/L (3.4-5.1); Sodium 136 mmol/L (137-145)
[2024-12-30 11:51] LABS: Percent Iron Saturation 37 % (20-50); Total Iron Binding Capacity 332 ug/dL (261-462)
[2024-12-30 11:58] LABS: Vitamin D 25 Hydroxy (D3) 68.6 ng/mL (30.0-100.0)
[2024-12-30 12:17] LABS: Ferritin 68 ng/mL (18-464)
[2024-12-30 13:01] LABS: Appearance Urine UA CLEAR; Bilirubin Urine UA NEGATIVE (NEGATIVE); Color Urine UA YELLOW; Glucose Urine UA NEGATIVE (Negative); Ketones Urine UA NEGATIVE (NEGATIVE); Leukocyte Esterase Urine UA NEGATIVE (NEGATIVE); Nitrite Urine UA NEGATIVE (Negative); Occult Blood Urine UA NEGATIVE (Negative); Protein Urine UA TRACE (Negative); Specific Gravity Urine UA 1.010 (1.000-1.035); Urobilinogen Urine UA 0.2 E.U./dL (0.2); pH Urine UA 5.5 (4.5-8.0)
[2024-12-30 13:02] LABS: Culture Indicated Urine Cult Not Indicated
[2024-12-30 14:08] LABS: Transferrin 249 mg/dL (206-381)
[2024-12-30 15:34] LABS: Protein (Total) Urine Random 23 mg/dL (0-12); Protein Creatinine Ratio Urine 0.19 GRAM/24H
[2024-12-30 15:37] LABS: Microalbumi Creatinin Ratio Ur 71.0 ug/mg CR (<30)
== END ==
PROVIDERS: PCP Family Medicine; Referring Provider Internal Medicine Nephrology; Visit Provider Internal Medicine Nephrology
DX: E78.5 Hyperlipidemia, unspecified (principal); N18.32 Chronic kidney disease, stage 3b; N13.8 Other obstructive and reflux uropathy
CPT/HCPCS: 36415; 80069; 81001; 82043; 82306; 82570; 82728; 83540; 83550; 83970; 84156; 85027